=== PATIENT | female | born 1965 | race Caucasian/White ===

== ENCOUNTER → 2016-05-17 | Outpatient (CLI) | payer OTHER ==
[~2016-05-17] MED LIST: DEXA2TA PO
== END ==
LOC: M ONCR 15:14
PROVIDERS: ATTEND Radiology Radiation Oncology
DX: C32.9 Malignant neoplasm of larynx, unspecified (principal)

== ENCOUNTER → 2016-07-12 | Outpatient (CLI) | payer OTHER ==
--- NOTE | 2016-07-12 19:44 | REP ---
PET/CT: History: Staging laryngeal carcinoma. Comparisons: No comparison imaging. The patient underwent a endoscopic evaluation of biopsy right vocal cord on the 01/03/2016. 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 She is apparently treated with radiation therapy. TECHNIQUE: 65 minutes following the intravenous injection of a 7.5 mCi dose of F-18 FDG, three-dimensional PET scintigraphy is acquired from the skull base to the proximal thighs. Triplanar noncontrast CT scanning is acquired through the same anatomic range for attenuation correction, and image registration with scan parameters optimized to minimize radiation exposure to the patient. PET scintigraphy and CT datasets were fused and displayed on a workstation with multiplanar and projection display capability. PET/CT Findings: There is normal variant FDG distribution in the oral pharyngeal mucosal region and in the glottic and supraglottic region and in the retinoid cartilage region. No bina hypermetabolic uptake is seen in the head and neck region. No abnormal hypermetabolic uptake is seen within the chest. There are old granulomatous lymph node calcifications and one granuloma is seen in the right lower lobe of the lung. No abnormal hypermetabolic uptake is seen within the abdomen or pelvis. Impression: No suspicious hypermetabolic focus is seen. A normal variant head and neck uptake seen. Signed by Joaquin Mathew MD 07/13/2016 09:06 A
== END ==
LOC: M RAD 13:24
PROVIDERS: ATTEND Otolaryngology
DX: C32.9 Malignant neoplasm of larynx, unspecified (principal)

== ENCOUNTER 2016-10-18 09:56 | Emergency (ER) | payer OTHER ==
[~2016-10-18] VITALS: Ht 167.6 cm; Wt 62.2 kg
[2016-10-18] MEDS ORDERED: GABA-282 (10:10)
[2016-10-18] MEDS ORDERED: LISI10TA4 (10:10)
[2016-10-18] MEDS ORDERED: MONT10TA2 (10:10)
[2016-10-18] MEDS ORDERED: [UNRECOGNIZED DRUG - OTHER] (10:10)
[2016-10-18] MEDS ORDERED: OMEP40CA2 (10:10)
[2016-10-18] MEDS ORDERED: CETI10TA (10:10)
[2016-10-18] MEDS ORDERED: COMBAER6 (10:10)
[2016-10-18] MEDS ORDERED: SUCR1TAB56 (10:10)
[2016-10-18] MEDS ORDERED: ATOR1TAB21 (10:10)
[2016-10-18 12:13] VITALS: BP 127/68
[2016-10-19] MEDS ORDERED: OXYC1TAB23 PO (09:27)
[2016-10-19] MEDS ORDERED: LISI10TA4 PO (09:27)
[2016-10-19] MEDS ORDERED: SUCR1TA PO (09:27)
[2016-10-19] MEDS ORDERED: OMEP40CA2 PO (09:27)
[2016-10-19] MEDS ORDERED: GABA-282 PO (09:27)
[2016-10-19] MEDS ORDERED: ALL10TAB27 PO (09:27)
[2016-10-19] MEDS ORDERED: ATOR1TAB19 PO (09:27)
[2016-10-19] MEDS ORDERED: DEXA1CON PO (09:27)
[2016-10-19] MEDS ORDERED: ALEV220T26 PO (09:27)
[2016-10-19] MEDS ORDERED: SPIR1CAP INH (09:27)
[2016-10-19] MEDS ORDERED: VITA50003 PO (09:27)
[2016-10-19] MEDS ORDERED: ULTR50TA PO (09:27)
== END 2016-10-18 12:14 | disposition home or self-care (01) ==
LOC: M ED 11:00
DX: R07.0 Pain in throat (principal); F17.200 Nicotine dependence, unspecified, uncomplicated; Z79.899 Other long term (current) drug therapy; Z88.5 Allergy status to narcotic agent; Z88.0 Allergy status to penicillin; Z88.2 Allergy status to sulfonamides

== ENCOUNTER → 2016-10-19 | Outpatient (CLI) | payer OTHER ==
[~2016-10-19] MED LIST changes: +ALEV220T26 PO; +ALL10TAB27 PO; +ATOR1TAB19 PO; +ATOR1TAB21; +ATOR1TAB21 PO; +CETI10TA; +COMBAER6; +COMBAER6 INH; +DEXA1CON PO; +GABA-282; +GABA-282 PO; +LISI10TA4; +LISI10TA4 PO; +MONT10TA2; +OMEP40CA2; +OMEP40CA2 PO; +OXYC1TAB23 PO; +SPIR1CAP INH; +SUCR1TA PO; +SUCR1TAB56; +ULTR50TA PO; +VITA50003 PO; +[UNRECOGNIZED DRUG - OTHER]
--- NOTE | 2016-10-19 17:13 | ECGEPIP ---
Stationary ECG Study [facility] Test Date: 2016-10-19 Pat Name: JENNY SLAUGHTER Department: Room: - Gender: F In Service Coordinator: [facility] : 1965 Requested By: Lisha CYR-BC Order Number: [id number] Reading MD: Mahin Mullen Measurements Intervals [place] Rate: 97 P: 81 NC: 135 QRS: 57 QRSD: 82 T: 69 QT: 346 QTc: 441 Interpretive Statements Normal sinus rhythm Biatrial enlargement Nonspecific repolarization abnormalities Compared to prior tracing of 12/27/2015, heart rate is a bit faster Electronically Signed On 10-19-2016 17:12:57 EDT by Mahin Mullen
== END ==
LOC: M EKG 13:01
PROVIDERS: ATTEND Nurse Practitioner Adult Health
DX: Z82.49 Family history of ischemic heart disease and other diseases of the circulatory system (principal)

== ENCOUNTER 2016-10-23 09:59 | Day surgery (SDC) | payer OTHER ==
[~2016-10-23] VITALS: Ht 167.6 cm; Wt 65.8 kg
[~2016-10-23 09:59] MED LIST changes: -ATOR1TAB21 PO; -COMBAER6 INH; +LIDOCAINE 2% INJ 100 MG/5 ML SDV (FOR ANES.) As Ordered ONE; +MIDAZOLAM INJ 2 MG/2 ML VIAL (J2250) As Ordered ONE; +ONDANSETRON 4MG/2ML VIAL (J2405) As Ordered ONE; +PROPOFOL 200 MG/20 ML VIAL As Ordered ONE; +ROCURONIUM BROMIDE 50 MG/5 ML VIAL As Ordered ONE; +SUCCINYLCHOLINE 100 MG/5 ML SYRINGE (J0330) As Ordered ONE; +dexameTHASONE 4 MG/ML 1ML VIAL (J1100) As Ordered ONE; +fentaNYL 100 MCG/2 ML INJECTION (J3010) As Ordered ONE
[2016-10-23 11:00] LABS: MEAN CORPUSCULAR HEMOGLOBIN 33.9 pg (27.0-33.0); MEAN CORPUSCULAR HGB CONC 34.4 g/dl (32.0-36.5); MEAN CORPUSCULAR VOLUME 98.5 fl (80.0-96.0); RED CELL DISTRIBUTION WIDTH 12.6 % (11.5-14.5); WHITE BLOOD COUNT 6.4 K/mm3 (4.0-10.0)
[2016-10-23 11:15] LABS: ANION GAP 10 MEQ/L (8-16); BLOOD UREA NITROGEN 16 MG/DL (7-18); CALCIUM LEVEL 9.7 MG/DL (8.5-10.1); CARBON DIOXIDE LEVEL 25 MEQ/L (21-32); CHLORIDE LEVEL 103 MEQ/L (98-107); CREATININE FOR GFR 1.03 MG/DL (0.55-1.02); GLOMERULAR FILTRATION RATE > 60.0 (>51); GLUCOSE, FASTING 143 MG/DL (70-105); POTASSIUM SERUM 3.7 MEQ/L (3.5-5.1); SODIUM LEVEL 138 MEQ/L (136-145)
[2016-10-23] MEDS ORDERED: LR 1,000 ML IV ONE (11:30)
[2016-10-23] MEDS ORDERED: MORPHINE 2 MG/ML 1ML SYRINGE IV ONE (11:30)
[2016-10-23] MEDS ORDERED: MORPHINE 2 MG/ML 1ML SYRINGE IV PRN (12:00)
[2016-10-23] MEDS ORDERED: ESMOLOL INJ 100MG/10ML VIAL As Ordered ONE (13:45)
[2016-10-23] MEDS ORDERED: GLYCOPYRROLATE INJ 0.2 MG/ML 2 ML VIAL As Ordered ONE (13:51)
[2016-10-23] MEDS ORDERED: NEOSTIGMINE 1MG/ML 5 ML SYRINGE (J2710) As Ordered ONE (13:51)
[2016-10-23] MEDS ORDERED: HYDROmorphone HCL 2 MG/ML 1ML VIAL (J1170) As Ordered ONE (14:04)
[2016-10-23] MEDS ORDERED: ALBUTEROL 6.7GM INHALER **FOR ANES. CART/OMNICELL ONLY As Ordered ONE (14:05)
[2016-10-23] MEDS ORDERED: LEVALBUTEROL 1.25 MG/0.5 ML CONCENTRATE NEB As Ordered ONE (14:14)
[2016-10-23] MEDS: MIDAZOLAM INJ 2 MG/2 ML VIAL (J2250) IV ONE ×2 (14:15→15:20)
[2016-10-23] MEDS ORDERED: MIDAZOLAM INJ 2 MG/2 ML VIAL (J2250) As Ordered ONE (14:15)
--- NOTE | 2016-10-23 14:22 | RO ---
DATE OF PROCEDURE: 10/23/2016 PREPROCEDURE DIAGNOSIS: Cancer of the larynx. POSTPROCEDURE DIAGNOSIS: Cancer of the larynx. SURGEON: Charles Ott MD CABLE ASSEMBLER AND SWAGER: ANESTHESIA: PROCEDURE: Direct laryngoscopy, esophagoscopy, and biopsy. FINDINGS: There was irritation in the ventricle on the left side with some hypertrophied epithelium. Several biopsies were taken. The cords themselves looked fine. DESCRIPTION OF PROCEDURE: Under general anesthesia with the patient intubated, I inserted the laryngoscope. The above findings were seen. Several biopsies were taken. I examined the oral cavity, hypopharynx and the larynx. I examined the aryepiglottic fold, the post cricoid area, piriform fossa, and there were no abnormalities except for some edema. The subglottic area looked fine. Then I inserted the rigid esophagoscope. I advanced that down into the esophagus and down through the length of the esophagus. There were no abnormalities. When I brought it back out, I examined the above areas again. The patient tolerated the procedure well. The patient was extubated and transferred to the recovery room in excellent condition.
[2016-10-23] MEDS: MIDAZOLAM INJ 2 MG/2 ML VIAL (J2250) IV PRN ×2 (14:25→15:20)
[2016-10-23] MEDS: RACEPINEPHrine 2.25 % UD INHA INH ONE ×2 (14:45→15:15)
[2016-10-23] MEDS ORDERED: diphenhydrAMINE INJ 50MG/ML VIAL (J1200) As Ordered ONE (14:48)
[2016-10-23] MEDS ORDERED: RACEPINEPHrine 2.25 % UD INHA As Ordered ONE (14:49)
[2016-10-23] MEDS ORDERED: diphenhydrAMINE INJ 50MG/ML VIAL (J1200) IV PRN (15:00)
[2016-10-23] MEDS ORDERED: ONDANSETRON 4MG/2ML VIAL (J2405) IV PRN (15:00)
[2016-10-23] MEDS ORDERED: fentaNYL 100 MCG/2 ML INJECTION (J3010) IV PRN (15:00)
[2016-10-23] MEDS ORDERED: LR 1,000 ML IV SCH (15:00)
[2016-10-23] MEDS ORDERED: LEVALBUTEROL 1.25 MG/0.5 ML CONCENTRATE NEB INH ONE (15:15)
[2016-10-23] MEDS ORDERED: traMADol 50 MG TAB PO PRN (17:30)
[2016-10-23 17:45] VITALS: BP 130/64
[2016-10-23 18:15] VITALS: BP 115/60
--- NOTE | 2016-10-23 20:45 | CR.PDOC ---
[facility] Consultation Consultation DATE OF CONSULTATION: Oct 23, 2016 at 09:59 REFERRING PROVIDER: Stu Reese M.D. ATTENDING PHYSICIAN: Dr. Charles Ott REASON FOR CONSULTATION/CHIEF COMPLAINT: . Medical management of comorbidities HISTORY OF PRESENT ILLNESS: . 51-year-old female with past medical history of laryngeal cancer diagnosed in January 2016 status post radiation from February to March 2016, tobacco abuse, hypertension, dyslipidemia, and GERD presented to [facility] for direct laryngoscopy, esophagoscopy, and biopsy with ENT today. The hospitalist service was consulted after the patient was noted to have upper respiratory wheezing and stridors following the aforementioned procedure(s). A chest x-ray was done and revealed no acute findings. However, during scoping procedure the patient was noted to have edema in the larynx, aryepiglottic fold, the post cricoid area , and piriform fossa. ALLERGIES: Please see below. HOME MEDICATIONS: Please see below. PAST MEDICAL HISTORY: As noted in HPI FAMILY HISTORY: Nonpertinent SOCIAL HISTORY: The patient denies any alcohol use. States that she continues to smoke 2 packs per day of tobacco. Denies any illicit drug use REVIEW OF SYSTEMS: 10 point review of systems negative unless otherwise specified in HPI. PHYSICAL EXAMINATION: VITAL SIGNS: Please see below. GENERAL APPEARANCE: . Awake, alert, in mild respiratory distress HEENT: . Skin overlying the anterior aspect of the neck noted to be brown from previous radiation. Patient noted to have audible stridor on auscultation RESPIRATORY: . Wheezing noted in the upper lungs/respiratory tract CARDIOVASCULAR: . Tachycardic, normal S1, S2 ABDOMEN: . Soft, nontender, nondistended EXTREMITIES: . No erythema, no tenderness LABORATORY DATA: Please see below. ASSESSMENT/PLAN: Wheezing in Upper Respiratory Tract, Stridor s/p Direct laryngoscopy, esophagoscopy in a patient with a history of Laryngeal Ca, Radiation Therapy Chest x-ray with no acute findings Given the patient's upper respiratory wheezing, stridor, and the findings of edema in the larynx, aryepiglottic fold, the post cricoid area, and piriform fossa during laryngoscopy and esophagoscopy in a patient with a history of laryngeal cancer status post radiation--I do believe the patient's upper airway should be closely monitored in case of an emergent need for tracheostomy--I have relayed my concern to the ENT attending The patients respiratory status did seem to improve after administration of racemic epinephrine. Continued Tobacco Abuse Patient counseled extensively about the need for cessation Hypertension Continue lisinopril Dyslipidemia Continue statin GERD Continue PPI Vital Signs/I&O Vital Signs Date Time Temp Pulse Resp B/P (MAP) Pulse Ox O2 Delivery O2 Flow Rate FiO2 10/23/16 18:15 97.3 119 18 115/60 (78) 95 Room Air 10/23/16 16:15 3 10/23/16 16:00 98 Laboratory Data Labs 24H Laboratory Tests 2 10/23/16 10:41: Anion Gap 10, Glomerular Filtration Rate > 60.0, Blood Urea Nitrogen 16, Creatinine 1.03H, Sodium Level 138, Potassium Level 3.7, Chloride Level 103, Carbon Dioxide Level 25, Calcium Level 9.7 10/23/16 18:17: Total Creatine Kinase 100, Creatine Kinase MB 1.0, Creatine Kinase MB Relative Index 1.00, Troponin I < 0.02 CBC/BMP Laboratory Tests 10/23/16 10:41 Red Blood Count 3.84 L, Mean Corpuscular Volume 98.5 H, Mean Corpuscular Hemoglobin 33.9 H, Mean Corpuscular Hemoglobin Concent 34.4, Red Cell Distribution Width 12.6, Calcium Level 9.7 Allergies Coded Allergies: Codeine (Verified Allergy, Unknown, 10/19/16) Penicillins (Verified Allergy, Unknown, 10/19/16) Sulfa Antibiotics (Verified Allergy, Unknown, 10/19/16) Home Medications Scheduled Atorvastatin Calcium (Atorvastatin Calcium) 10 Mg Tab, 10 MG PO DAILY, (Reported ) Cetirizine HCl (All Day Allergy) 10 Mg Tab, 10 MG PO DAILY, (Reported) Dexamethasone (Dexamethasone Intensol) 1 Mg/Ml Con, 1 MG PO BID, (Reported) Ergocalciferol (Vitamin D) 50,000 Unit Cap, 50,000 UNIT PO 2XW, (Reported) Gabapentin (Gabapentin) 300 Mg Cap, 250 MG PO TID, (Reported) Lisinopril (Lisinopril) 10 Mg Tab, 10 MG PO DAILY, (Reported) Omeprazole (Omeprazole) 40 Mg Cap, 40 MG PO AC, (Reported) Sucralfate (Carafate) 1 Gm Tab, 1 GM PO AC, (Reported) Scheduled PRN Naproxen Sodium (Aleve) 220 Mg Tab, 220 MG PO BIDP PRN for PAIN, (Reported) Oxycodone/Acetaminophen (Oxycodone/Acetaminophen 5-325 mg) 1 Tab Tab, 1 TAB PO Q4HP PRN for PAIN, (Reported) Tiotropium [place] Monohydrate (Spiriva Handihaler) 18 Mcg Cap, 1 INHALATION INH BIDP PRN for SHORTNESS OF BREATH, (Reported) STU REESE MD Oct 23, 2016 20:45
--- NOTE | 2016-10-24 00:52 | ECGEPIP ---
Stationary ECG Study [facility] Test Date: 2016-10-23 Pat Name: JENNY SLAUGHTER Department: u Room: [place] [address] Gender: F [employer] Furn[employer]: WHIT : 1965 Requested By: STU REESE Order Number: [id number] Reading MD: Nikolas Heredia Measurements Intervals [place] Rate: 112 P: 72 MO: 132 QRS: -1 QRSD: 72 T: 40 QT: 340 QTc: 466 Interpretive Statements SINUS TACHYCARDIA ABNORMAL RHYTHM ECG COMPARED TO THE LAST 2 TRACINGS IN THE SYSTEM, NO SIGNIFICANT CHANGES BUT MILD SINUS TACHYCARDIA Pt denies ever having chest pain! Electronically Signed On 10-24-2016 0:52:08 EDT by Nikolas Heredia
[2016-10-24] MEDS ORDERED: ATOR1TAB21 PO (11:11)
[2016-10-24] MEDS ORDERED: COMBAER6 INH (11:11)
== END 2016-10-23 22:10 | disposition left against medical advice (07) ==
LOC: M SDC 09:59 → M PCU 17:38 → M SDC 22:10
PROVIDERS: ATTEND Otolaryngology
DX: J38.3 Other diseases of vocal cords (principal); C32.9 Malignant neoplasm of larynx, unspecified; Z92.3 Personal history of irradiation; Z88.0 Allergy status to penicillin; Z88.2 Allergy status to sulfonamides; I10 Essential (primary) hypertension; Z79.899 Other long term (current) drug therapy; J44.9 Chronic obstructive pulmonary disease, unspecified; F17.210 Nicotine dependence, cigarettes, uncomplicated

== ENCOUNTER → 2016-10-23 | Outpatient (CLI) | payer OTHER ==
--- NOTE | 2016-10-23 09:27 | REP ---
PA and lateral chest: Comparisons are the PA and lateral chest plain film studies of 12/27/2015 and 2013. There is a comparison chest CT of 05/27/2014. There is a stable right lower lobe calcified granuloma, and unchanged from all prior studies. There are no acute infiltrates or effusions. No new masses. Cardiac size is normal. The denzel, mediastinum, and bony thorax are unremarkable. Impression: Essentially negative chest. Right lower lobe calcified granuloma. Signed by Leighton Pride MD 10/23/2016 09:19 A
--- NOTE | 2016-10-23 09:29 | REP ---
Soft tissue neck three views: The prevertebral soft tissues are normal. There is no adenoid hypertrophy. The epiglottis appears mildly hypertrophied. There is mild C5-6 degenerative disc disease. Impression: Mildly hypertrophied epiglottis. Signed by Leighton Pride MD 10/23/2016 09:20 A
== END ==
LOC: M RAD 08:31
PROVIDERS: ATTEND Nurse Practitioner Adult Health
DX: R05 Cough (principal)

== ENCOUNTER 2016-10-24 07:30 | Observation (INO) | payer OTHER ==
[~2016-10-24] VITALS: Ht 167.6 cm; Wt 60.4 kg
[~2016-10-24 07:30] MED LIST changes: -LIDOCAINE 2% INJ 100 MG/5 ML SDV (FOR ANES.) As Ordered ONE; -MIDAZOLAM INJ 2 MG/2 ML VIAL (J2250) As Ordered ONE; -ONDANSETRON 4MG/2ML VIAL (J2405) As Ordered ONE; -PROPOFOL 200 MG/20 ML VIAL As Ordered ONE; -ROCURONIUM BROMIDE 50 MG/5 ML VIAL As Ordered ONE; -SUCCINYLCHOLINE 100 MG/5 ML SYRINGE (J0330) As Ordered ONE; -dexameTHASONE 4 MG/ML 1ML VIAL (J1100) As Ordered ONE; -fentaNYL 100 MCG/2 ML INJECTION (J3010) As Ordered ONE
[2016-10-24] MEDS ORDERED: RACEPINEPHrine 2.25 % UD INHA As Ordered ONE (07:57)
[2016-10-24] MEDS ORDERED: ALBUTEROL SULFATE 2.5 MG/0.5 ML INH NEB SOLN As Ordered ONE (07:57)
[2016-10-24] MEDS ORDERED: IPRATROPIUM 0.5MG/ALBUTEROL 2.5MG INH SOL UD 3ML (DUONEB)(J7620) As Ordered ONE (07:57)
[2016-10-24] MEDS ORDERED: ALBUTEROL SULFATE 2.5 MG/0.5 ML INH NEB SOLN INH ONE (08:00)
[2016-10-24] MEDS ORDERED: RACEPINEPHrine 2.25 % UD INHA NEB ONE (08:00)
[2016-10-24] MEDS ORDERED: dexameTHASONE 20 MG/5 ML VIAL (J1100) IV ONE (08:00)
[2016-10-24] MEDS ORDERED: ONDANSETRON 4MG/2ML VIAL (J2405) IV ONE (08:00)
[2016-10-24] MEDS ORDERED: MORPHINE 2 MG/ML 1ML SYRINGE IV ONE (08:00)
[2016-10-24] MEDS ORDERED: IPRATROPIUM 0.5MG/ALBUTEROL 2.5MG INH SOL UD 3ML (DUONEB)(J7620) NEB ONE (08:00)
[2016-10-24] MEDS ORDERED: NS 1,000 ML IV ONE (08:00)
[2016-10-24 08:17] LABS: INR 0.93
[2016-10-24 08:23] LABS: ABG BASE EXCESS 0.4 (-2.0-2.0); ABG HCO3 23.3 MEQ/L (22.0-26.0); ABG PARTIAL PRESSURE CO2 32.2 mmHg (35.0-45.0); ABG STANDARD HCO3 24.9 MEQ/L (22.0-26.0); ABG TOTAL CO2 24.3 MEQ/L (22.0-29.0); ABG pH (ARTERIAL) 7.477 UNITS (7.350-7.450)
--- NOTE | 2016-10-24 08:29 | REP ---
Portable chest, single AP view, the patient sitting, 10/24/2016, 08:19 a.m.: Comparison is 10/23/2016. There are no focal infiltrates or pleural effusions. The lung alvarado otherwise clear. There is a right lower lobe stable calcified granuloma. Cardiac size is normal. The denzel, mediastinum, bony thorax are unremarkable. Impression: No acute cardiopulmonary findings. Signed by Leighton Pride MD 10/24/2016 08:21 A
[2016-10-24] MEDS ORDERED: LevoFLOXacin IV 750 MG in APPROPRIATE DILUENT 1 EA IV ONE (08:30)
[2016-10-24 08:36] LABS: ALBUMIN 3.7 GM/DL (3.2-5.2); ALBUMIN/GLOBULIN RATIO 1.03 (1.00-1.93); ALKALINE PHOSPHATASE 67 U/L (45-117); ALT/SGPT 20 U/L (12-78); ANION GAP 9 MEQ/L (8-16); AST/SGOT 11 U/L (15-37); BILIRUBIN,DIRECT 0.1 MG/DL (0.0-0.2); BILIRUBIN,TOTAL 0.4 MG/DL (0.2-1.0); BLOOD UREA NITROGEN 18 MG/DL (7-18); CALCIUM LEVEL 9.5 MG/DL (8.5-10.1); CARBON DIOXIDE LEVEL 26 MEQ/L (21-32); CHLORIDE LEVEL 102 MEQ/L (98-107); CREATININE FOR GFR 1.08 MG/DL (0.55-1.02); GLOMERULAR FILTRATION RATE 56.9 (>51); GLUCOSE, FASTING 107 MG/DL (70-105); POTASSIUM SERUM 4.1 MEQ/L (3.5-5.1); SODIUM LEVEL 137 MEQ/L (136-145); TOTAL PROTEIN 7.3 GM/DL (6.4-8.2)
[2016-10-24 08:40] LABS: BASO % 0.1 % (0.0-1.0); EOS % 0.3 % (0.0-3.0); LARGE UNSTAINED CELL # 0.1 K/mm3 (0.0-0.4); LARGE UNSTAINED CELL % 1.1 % (0.0-4.0); LYMPH % 11.2 % (24.0-44.0); MEAN CORPUSCULAR HEMOGLOBIN 33.4 pg (27.0-33.0); MEAN CORPUSCULAR HGB CONC 33.5 g/dl (32.0-36.5); MEAN CORPUSCULAR VOLUME 99.5 fl (80.0-96.0); MONO # 0.6 K/mm3 (0.0-0.8); MONO % 6.2 % (0.0-5.0); NEUTROPHILS # 7.1 K/mm3 (1.8-7.7); PLATELET COUNT, AUTOMATED 288 k/mm3 (150-450); RED CELL DISTRIBUTION WIDTH 12.3 % (11.5-14.5); WHITE BLOOD COUNT 8.8 K/mm3 (4.0-10.0)
[2016-10-24] MEDS ORDERED: KETOROLAC 30 MG/ML VIAL (J1885) IV ONE (09:00)
[2016-10-24] MEDS ORDERED: SENOKOT S TAB PO SCH (09:00)
--- NOTE | 2016-10-24 09:30 | ECGEPIP ---
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
[2016-10-24] MEDS ORDERED: ISOVUE-370 76% 100ML VIAL (Q9967) As Ordered ONE (10:08)
[2016-10-24] MEDS ORDERED: ATOR1TAB21 PO (11:11)
[2016-10-24] MEDS ORDERED: COMBAER6 INH (11:11)
--- NOTE | 2016-10-24 11:15 | REP ---
REASON: Status post ENT procedure with scraping of the subglottic tissues on the left as per history from the emergency room physician. The exam was performed before and after intravenous contrast. Contrast utilized 100 mL of Isovue 370. As seen at the level of the thyroid cartilage on the left, there is evidence of soft tissue thickening with moderate airway compression. Air density is seen on the left adjacent to the hyoid bone. There is no definite abnormal enhancement. The suprahyoid neck spaces are normal. There is no evidence of a mass or adenopathy. IMPRESSION: Subglottic soft tissue thickening with some evidence to suggest very subtle enhancement of the areas measuring approximately 1 cm and possibly causing mild to moderate airway narrowing at that level. There is no evidence of an abscess formation. Clinical correlation and followup is suggested. Signed by Yan Henley DO 10/24/2016 11:53 A
[2016-10-24] MEDS ORDERED: NS 1,000 ML IV SCH (11:30)
[2016-10-24] MEDS ORDERED: ACETAMINOPHEN TAB 650MG DOSE (2X325MG) PO PRN (12:00)
[2016-10-24] MEDS ORDERED: PERCOCET 5MG/325MG TAB PO PRN (12:00)
[2016-10-24] MEDS ORDERED: IPRATROPIUM 0.5MG/ALBUTEROL 2.5MG INH SOL UD 3ML (DUONEB)(J7620) NEB PRN (12:00)
[2016-10-24] MEDS ORDERED: ONDANSETRON 4MG/2ML VIAL (J2405) IV PRN (12:00)
[2016-10-24] MEDS ORDERED: IPRATROPIUM 0.5MG/ALBUTEROL 2.5MG INH SOL UD 3ML (DUONEB)(J7620) NEB SCH (14:00)
[2016-10-24] MEDS ORDERED: methylPREDNISolone INJ 125 MG/2 ML VIAL (J2930) IV SCH (14:00)
[2016-10-24 15:39] VITALS: BP 139/88
[2016-10-24] MEDS ORDERED: GABAPENTIN 300 MG CAP PO SCH (16:00)
--- NOTE | 2016-10-24 17:17 | HPEPDOC ---
General Date of Admission Oct 24, 2016 at 11:58 Chief Complaint The patient is a 51-year-old female Presented to the ER with complaints of throat pain. History of Present Illness Patient is a 51 year old female with a PMHx of Laryngeal cancer (Dx 215 via Biopsy, s/p Radiation -03/2016), Tobacco abuse, HTN, DLP, COPD (Dx 2 years prior) and Gastric Ulcer / GERD who presented to the ER with throat pain. Patient has noted that since her initial diagnosis of cancer in 01/2016 she has been having throat pain that has not resolved despite radiation. She subsequently had a repeat laryngoscopy and esophagostomy done on 10/23/[address] Charles Ott (ENT) and biopsy were taken. Results are still pending. After the procedure patient noted that she still had pain and was evaluated by the hospitalist at that time as well. She was noted to be stridor and had received racemic epinephrine that improved the stridor. She was subsequently discharged home from ENTs service. She returned again today with throat pain. She denied any change in her baseline cough, denies any change in her sputum color or consistency. She denies any wheezing or chest pain. Denies any fever or chills. She reports that she does have some mild hemoptysis when she coughs. She does not that she vomits occasionally when she has excessive coughing episodes. She denies abdominal pain, constipation, diarrhea or urinary symptoms. Denies any leg swelling. Home Medications Scheduled Atorvastatin Calcium (Atorvastatin Calcium) 20 Mg Tab, 20 MG PO DAILY, (Reported ) Cetirizine HCl (All Day Allergy) 10 Mg Tab, 10 MG PO DAILY, (Reported) Gabapentin (Gabapentin) 300 Mg Cap, 300 MG PO TID, (Reported) Lisinopril (Lisinopril) 10 Mg Tab, 10 MG PO DAILY, (Reported) Omeprazole (Omeprazole) 40 Mg Cap, 40 MG PO DAILY, (Reported) Sucralfate (Carafate) 1 Gm Tab, 1 GM PO ACHS, (Reported) PATIENT STATES SHE PUT ALL 4 TABS IN WATER AND MIXES UNTIL THEY ARE DISOLVED. WHEN HER ULCER FLARES UP, SHE SIPS ON IT. Scheduled PRN Albuterol/Ipratropium (Combivent Respimat 20-100 Mcg/Act) 1 Aer Aer, 1 PUFF INH QID PRN for SHORTNESS OF BREATH, (Reported) Naproxen Sodium (Aleve) 220 Mg Tab, 220 MG PO BIDP PRN for PAIN, (Reported) Oxycodone/Acetaminophen (Oxycodone/Acetaminophen 5-325 mg) 1 Tab Tab, 1 TAB PO Q4HP PRN for PAIN, (Reported) Allergies Coded Allergies: Codeine (Verified Allergy, Unknown, 10/19/16) Penicillins (Verified Allergy, Unknown, 10/19/16) Sulfa Antibiotics (Verified Allergy, Unknown, 10/19/16) Past Medical History Medical History See HPI Surgical History See HPI Family History - Non-contributory Social History - Reports that she is a smoker of >30 years at 1 ppd, Reports social EtOH use, Reports drug use with marijuana - Denies recent travel or sick contacts - Lives with family Review of Symptoms Other systems Constitutional: Reports weight loss, Poor appetite, No recent trauma Eyes: No visual changes or eye pain Ears, Nose, Throat: Denies nose bleeds, or difficulty swallowing, Positive blood in sputum, Positive throat pain Cardiovascular: Denies chest pain, sweating, or orthopnea Respiratory: Denies cough, wheezing, or shortness of breath GI: Nic nausea, vomiting, abdominal pain, diarrhea or constipation : Denies pain with urination or frequency Musculoskeletal: Denies joint pain or swelling Neuro / Psych: Denies muscle weakness or sensory loss Skin: No skin rashes noted All other review of systems negative; otherwise stated in history of present illness Vital Signs - Vitals: BP 139/88, HR 82, RR 20, Sat 97%RA, Temp 98.0F - General: Lying in bed, No acute distress, Speaking in full sentences, AAOx3 - HEENT: NC, AT, PERRLA, EOMI, No stridor - CVS: RRR, +S1S2 - Lungs: Fair air entry bilaterally, Clear to auscultation, No wheezing / rales / rhonchi - Abdomen: Soft, Non-distended, Non-tender, + Bowel sounds x 4 - Extremities: + PPx4, No lower extremity edema, No calf tenderness - Neuro: No focal motor or sensory deficit - Skin: No visible rashes Laboratory Data Labs 24H Laboratory Tests 2 10/24/16 08:01: White Blood Count 8.8, Red Blood Count 3.86L, Hemoglobin 12.9, Hematocrit 38.5, Mean Corpuscular Volume 99.5H, Mean Corpuscular Hemoglobin 33.4H, Mean Corpuscular Hemoglobin Concent 33.5, Red Cell Distribution Width 12.3, Platelet Count 288, Neutrophils (%) (Auto) 81.0H, Lymphocytes (%) (Auto) 11.2L, Monocytes (%) (Auto) 6.2H, Eosinophils (%) (Auto) 0.3, Basophils (%) (Auto) 0.1 , Neutrophils # (Auto) 7.1, Lymphocytes # (Auto) 1.0L, Monocytes # (Auto) 0.6, Eosinophils # (Auto) 0.0, Basophils # (Auto) 0.0, Large Unclassified Cells % 1.1 , Large Unclassified Cells # 0.1, Prothrombin Time 12.6, Prothromb Time International Ratio 0.93, Anion Gap 9, Glomerular Filtration Rate 56.9, Lactic Acid Level 2.3*H, Calcium Level 9.5, Aspartate Amino Transf (AST/SGOT) 11L, Alanine Aminotransferase (ALT/SGPT) 20, Alkaline Phosphatase 67, Total Bilirubin 0.4, Direct Bilirubin 0.1, Total Creatine Kinase 179#, Creatine Kinase MB 2.0, Creatine Kinase MB Relative Index 1.11, Troponin I < 0.02, B- Type Natriuretic Peptide 244H, Total Protein 7.3, Albumin 3.7, Albumin/Globulin Ratio 1.03, Thyroid Stimulating Hormone (TSH) 0.278L, Free Thyroxine 1.50H 10/24/16 08:10: Blood Gas Bicarbonate Standard 24.9, Arterial Blood pH 7.477H, Arterial Blood Partial Pressure CO2 32.2L, Arterial Blood Partial Pressure O2 250.0H, Arterial Blood Total CO2 24.3, Arterial Blood HCO3 23.3, Arterial Blood Base Excess 0.4, Arterial Blood Oxygen Saturation 99.4H 10/24/16 12:26: Lactic Acid Followup at 4 Hours 1.0 CBC/BMP Laboratory Tests 10/24/16 08:01 Red Blood Count 3.86 L, Mean Corpuscular Volume 99.5 H, Mean Corpuscular Hemoglobin 33.4 H, Mean Corpuscular Hemoglobin Concent 33.5, Red Cell Distribution Width 12.3, Neutrophils (%) (Auto) 81.0 H, Lymphocytes (%) (Auto) 11.2 L, Monocytes (%) (Auto) 6.2 H, Eosinophils (%) (Auto) 0.3, Basophils (%) ( Auto) 0.1, Neutrophils # (Auto) 7.1, Lymphocytes # (Auto) 1.0 L, Monocytes # ( Auto) 0.6, Eosinophils # (Auto) 0.0, Basophils # (Auto) 0.0 Microbiology Microbiology 10/24/16 Blood Culture, Received Pending 10/24/16 Blood Culture, Received Pending Plan / VTE VTE Prophylaxis Ordered?: Yes Plan Plan Intractable throat pain likely 2/2 malignancy, possibly 2/2 recent procedure - no evidence of stridor - CT reveals subglottic soft tissue thickening with some mild-moderate airway narrowing, no evidence of abscess - will attempt pain control with Percocet - Case discussed with Dr. Ott will be on consult Laryngeal edema likely 2/2 recent procedure - no evidence of stridor - will start solumedrol and Levaquin - Dr. Ott (ENT) on consult COPD history - c/w albuterol PRN Laryngeal cancer - Dx 01/216 via Biopsy - s/p Radiation -03/2016) Tobacco abuse - will start nicotine patch HTN - c/w Lisinopril with holding parameters DLP - c/w atorvastatin Gastric Ulcer / GERD - c/w protonix DVT prophylaxis - Will start CHERIE Felix MD Oct 24, 2016 17:17
[2016-10-24] MEDS ORDERED: SUCRALFATE 1 GM TAB PO SCH (17:30)
--- NOTE | 2016-10-24 22:04 | DSES ---
DATE OF ADMISSION: 10/24/2016 DATE OF DISCHARGE: ATTENDING PHYSICIAN: Dr. Heidi Parra DICTATED BY: Dr. Heidi Parra PRIMARY CARE PHYSICIAN: Dr. Lisha Smoers REFERRING PHYSICIAN: None. CONSULTING PHYSICIAN: Dr. Ott CONDITION ON DISCHARGE: Guarded. FINAL DIAGNOSIS/HOSPITAL COURSE/HISTORY OF THE PRESENT ILLNESS: The patient was admitted on 10/24/2016. Full history and physical is in the chart. The patient decided to leave against medical advice as she did not want to stay for continued medical treatment. The patient was advised of the risk of leaving against medical advice including worsening of her medical condition, disability and and she was advised to remain within the hospital for continued management of her medical problems and treatment. The patient refused to stay despite these facts. The patient was advised to return to the emergency room if she changes her mind.
[2016-10-25] MEDS ORDERED: CETIRIZINE (ZyrTEC) 10 MG TAB PO SCH (09:00)
[2016-10-25] MEDS ORDERED: PANTOPRAZOLE 40MG TAB (PROTONIX) PO SCH (09:00)
[2016-10-25] MEDS ORDERED: ATORVASTATIN 20 MG TAB PO SCH (09:00)
[2016-10-25] MEDS ORDERED: LISINOPRIL 10 MG TAB PO SCH (09:00)
[2016-10-25] MEDS ORDERED: LevoFLOXacin IV 750 MG in APPROPRIATE DILUENT 1 EA IV SCH (12:00)
== END 2016-10-24 15:39 | disposition left against medical advice (07) ==
LOC: M ED 08:21 → M ED INP 11:58
PROVIDERS: ADMIT Internal Medicine; ATTEND Internal Medicine
DX: Z53.21 Procedure and treatment not carried out due to patient leaving prior to being seen by health care provider (principal); J39.2 Other diseases of pharynx; R07.0 Pain in throat; Z85.21 Personal history of malignant neoplasm of larynx; Z92.3 Personal history of irradiation; I10 Essential (primary) hypertension; E78.5 Hyperlipidemia, unspecified; J44.9 Chronic obstructive pulmonary disease, unspecified; K21.9 Gastro-esophageal reflux disease without esophagitis; F17.210 Nicotine dependence, cigarettes, uncomplicated; Z79.899 Other long term (current) drug therapy; Z88.0 Allergy status to penicillin; Z88.2 Allergy status to sulfonamides

== ENCOUNTER 2017-01-20 03:48 | Inpatient (IN) | payer OTHER ==
[~2017-01-20] VITALS: Ht 167.6 cm; Wt 64.2 kg
[~2017-01-20 03:48] MED LIST changes: +ATOR1TAB21 PO; +COMBAER6 INH; -ULTR50TA PO; +ULTR50TA8 PO; +VITA1CAP40 PO; -VITA50003 PO
[2017-01-20] MEDS ORDERED: IPRATROPIUM 0.5MG/ALBUTEROL 2.5MG INH SOL UD 3ML (DUONEB)(J7620) As Ordered ONE (03:54)
[2017-01-20] MEDS: IPRATROPIUM 0.5MG/ALBUTEROL 2.5MG INH SOL UD 3ML (DUONEB)(J7620) NEB PRN ×3 (04:09→04:42)
[2017-01-20 04:10] LABS: ABG BASE EXCESS -4.3 (-2.0-2.0); ABG HCO3 21.2 MEQ/L (22.0-26.0); ABG PARTIAL PRESSURE CO2 40.6 mmHg (35.0-45.0); ABG PARTIAL PRESSURE O2 291.6 mmHg (75.0-100.0); ABG STANDARD HCO3 20.9 MEQ/L (22.0-26.0); ABG TOTAL CO2 22.5 MEQ/L (22.0-29.0); ABG pH (ARTERIAL) 7.336 UNITS (7.350-7.450)
[2017-01-20 04:13] VITALS: O2SAT 94
[2017-01-20 04:15] LABS: BASO % 0.5 % (0.0-1.0); EOS # 0.1 K/mm3 (0.0-0.50); EOS % 2.3 % (0.0-3.0); LARGE UNSTAINED CELL # 0.1 K/mm3 (0.0-0.4); LARGE UNSTAINED CELL % 1.3 % (0.0-4.0); LYMPH # 1.3 K/mm3 (1.5-4.5); LYMPH % 21.2 % (24.0-44.0); MEAN CORPUSCULAR HEMOGLOBIN 32.6 pg (27.0-33.0); MEAN CORPUSCULAR HGB CONC 33.2 g/dl (32.0-36.5); MEAN CORPUSCULAR VOLUME 98.1 fl (80.0-96.0); MONO # 0.3 K/mm3 (0.0-0.8); MONO % 4.8 % (0.0-5.0); NEUTROPHILS % 69.9 % (36.0-66.0); PLATELET COUNT, AUTOMATED 234 k/mm3 (150-450); RED CELL DISTRIBUTION WIDTH 13.2 % (11.5-14.5); WHITE BLOOD COUNT 5.7 K/mm3 (4.0-10.0)
[2017-01-20] MEDS ORDERED: methylPREDNISolone INJ 125 MG/2 ML VIAL (J2930) IV ONE (04:30)
[2017-01-20 04:43] LABS: ANION GAP 11 MEQ/L (8-16); BLOOD UREA NITROGEN 6 MG/DL (7-18); CALCIUM LEVEL 8.4 MG/DL (8.5-10.1); CARBON DIOXIDE LEVEL 26 MEQ/L (21-32); CHLORIDE LEVEL 98 MEQ/L (98-107); CREATININE FOR GFR 0.81 MG/DL (0.55-1.02); GLOMERULAR FILTRATION RATE > 60.0 (>51); GLUCOSE, FASTING 112 MG/DL (70-105); POTASSIUM SERUM 3.5 MEQ/L (3.5-5.1); SODIUM LEVEL 135 MEQ/L (136-145)
[2017-01-20] MEDS ORDERED: LORazepam 2 MG/ML VIAL (J2060) IV STA (05:16)
[2017-01-20] MEDS ORDERED: DEXA1TA PO (05:49)
[2017-01-20] MEDS ORDERED: MORPHINE 2 MG/ML 1ML SYRINGE IV PRN (06:15)
[2017-01-20] MEDS ORDERED: ONDANSETRON 4MG/2ML VIAL (J2405) IV PRN (06:15)
[2017-01-20] MEDS ORDERED: ACETAMINOPHEN TAB 650MG DOSE (2X325MG) PO PRN (06:15)
[2017-01-20] MEDS ORDERED: ISOVUE-370 76% 100ML VIAL (Q9967) As Ordered ONE (06:26)
[2017-01-20] MEDS ORDERED: ALBUTEROL SULFATE 2.5 MG/0.5 ML INH NEB SOLN NEB PRN (06:30)
--- NOTE | 2017-01-20 07:20 | REPUSA ---
CLINICAL HISTORY: Shortness of breath. TECHNIQUE: Multiple axial CT images were obtained through the neck with IV contrast material. MPR cor onal and sagittal sequences were obtained. COMMENTS: Comparison is made to the prior exam of 10/24/2016. Unchanged 1.6x2.2 cm left glottic/supraglottic soft tissue lesion. Interval appearance of diffuse significant soft tissue thickening of the epiglottic folds and mild in crease in supraglottic airway narrowing. There is no paravertebral soft tissue mass. The salivary glands are normal. There is no deep cervical or jugular lymphadenopathy. The paravertebral soft tissue space is normal. Limited images through the posterior fossa demonstrate no evidence for tonsilar herniation. Evaluation of the visualized lung apices reveals no evidence for abnormality. IMPRESSION: Unchanged left glottic/supraglottic soft tissue lesion. Interval appearance of diffuse thickening of the aryepiglottic folds. This can be secondary to infect ious/inflammatory pathology versus neoplastic infiltration. Subsequent increase in the degree of supraglottic airway narrowing. Thank you for your kind referral of this patient.
[2017-01-20] MEDS: SUCRALFATE 1 GM TAB PO SCH ×4 (07:30→21:23)
--- NOTE | 2017-01-20 07:40 | REPUSA ---
CLINICAL HISTORY: Dyspnea, exclude PE. TECHNIQUE: Multiple incremental axial, coronal and oblique images are obtained from the thoracic inle t to the upper abdomen. Intravenous contrast material was administered as per pulmonary embolism prot ocol. COMMENTS: Moderate centrilobular emphysema. Chronic bronchitis. 1.1 peripheral subpleural chronic calcified benign nodule of the right lower lobe. There is excellent opacification of pulmonary arterial system without evidence for pulmonary embolism . Aorta is of normal caliber without evidence for dissection or aneurysm. There is no evidence of pleural or parenchymal mass. There are no pleural effusions. There is no evid ence of hilar or mediastinal lymphadenopathy. The heart and great vessels are within normal limits. Images of the upper abdomen demonstrate no evidence of adrenal mass. The bony structures are free of lytic or blastic lesions. Multilevel degenerative changes are seen in volving the visualized thoracolumbar spine. Scattered calcifications are seen involving the aorta and major branches compatible with atherosclero sis. IMPRESSION: No evidence for pulmonary embolism. Emphysema. Chronic bronchitis. Small sliding hiatal hernia. Thank you for your kind referral of this patient.
--- NOTE | 2017-01-20 07:48 | REP ---
Clinical: Dyspnea and cough . Comparison: 10/24/2016 . Findings: The mediastinum and cardiac silhouette are stable and within normal limits for portable technique. The lung alvarado are clear without acute consolidation, effusion, or pneumothorax. Skeletal structures are intact. Impression: No acute cardiopulmonary process appreciated. Signed by Tj Yip MD 01/20/2017 07:40 A
--- NOTE | 2017-01-20 07:50 | REPUSA ---
CLINICAL HISTORY: Pain. TECHNIQUE: Multiple axial CT images were obtained through the thoracic spine without IV contrast mate rial. MPR coronal and sagittal sequences were obtained. COMMENTS: There are diffuse spondylotic changes. Findings are demonstrated by disc space narrowing, osteophyte formation and degenerative endplate changes. Facet joint arthropathy. No fracture or dislocation is s een. No aggressive bone lesion is noted. IMPRESSION: Spondylosis. Thank you for your kind referral of this patient.
[2017-01-20 08:00] VITALS: BP 123/94
[2017-01-20] MEDS ORDERED: AZITHROMYCIN INJ 500 MG, VIAL MATE ADAPTER 1 EACH in D5W 250 ML IV SCH (08:00)
--- NOTE | 2017-01-20 08:52 | HPE ---
DATE OF ADMISSION: 01/20/2017 PRIMARY CARE PROVIDER: Lisha Somers HISTORY OF PRESENT ILLNESS: The patient is a 51-year-old female with a past medical history significant for laryngeal cancer status post radiation, tobacco abuse, chronic obstructive pulmonary disease (COPD), dyslipidemia, hypertension, and gastric ulcer, presented to [facility] on 01/20/2017 for acute respiratory failure. Per patient, the patient started to have acute worsening of shortness of breath for the past 2 days, and the patient also noted to start having an increased wheeze; and since yesterday, her symptoms showed dramatic worsening; and, therefore, she had to come to [facility] for further treatments. The patient denied any frequency of any exacerbation history. The patient does have a history of laryngeal cancer diagnosis in January 2016, and biopsy was performed, and the patient had radiation in February and March of 2016. In October 2016, the patient came to [facility] for throat pain. A CT was performed. It showed there is a soft tissue thickening with mild to moderate airway narrowing. Within a few hours after hospitalization, the patient decided to sign out against medical advice (AMA). Per patient, the patient after she left AMA, the patient continued to have the issue with her throat. On 10/23/2016, the patient had a repeated laryngeal scope and esophagostomy done by Dr. Ott. At the time, biopsy was taken. Later, the biopsy results showed ulcerated squamous mucosa with acute inflammation and the reactive squamous atypia. No malignancy identified. When the patient arrived to the emergency room, the patient had severe respiratory distress. A high dose of steroid was given to the patient. The patient received multiple doses of nebulizer treatments. She feels her symptom is improving after three nebulizer treatments. However, at the time of the encounter, the patient still requires a VentiMask to maintain satisfactory oxygen (O2) saturation ALLERGIES: CODEINE, PENICILLIN, SULFA. PAST MEDICAL HISTORY: 1. Laryngeal cancer diagnosed in January 2016, status post radiation in February and March 2016. The biopsy from repeated laryngeal scope was performed in October 2016 and was negative for cancer. 2. Tobacco abuse. 3. Hypertension. 4. Dyslipidemia. 5. COPD. 6. Gastric ulcers. PAST SURGICAL HISTORY: 1. Left foot surgery. 2. Throat biopsy in October 2016. SOCIAL HISTORY: Chronic smoker. Consumes alcohol. History of recreational drug use. REVIEW OF SYSTEMS: General: Denies any fever or chills. HEENT: No vision changes. No auditory changes. CARDIOVASCULAR: Denied any chest pain. The patient does experience palpitations. RESPIRATORY: Acute worsening shortness of breath since 2 days ago and continued to get worse. The patient has the diagnosis of COPD. Complained about increased wheeze. No worsening of cough or sputum productions. GASTROINTESTINAL (GI): The patient has nausea and vomiting, more significant in the last several hours. No blood in the vomit. MUSCULOSKELETAL: Complained about back pain, mainly between the scapula has been bothering her for the past few months. OBJECTIVE: VITAL SIGNS: The pulse is 118, respirations 24, blood pressure 142/93, pulse oximetry is 98% on VentiMask. PHYSICAL EXAMINATION: GENERAL: Moderate to severe distress secondary to severe difficulty breathing. Alert and oriented times three. HEENT: Normocephalic, atraumatic. CARDIOVASCULAR: Tachycardic. Positive S1, S2. LUNGS: Very diminished breath sounds. I cannot appreciate any lung lobe wheezes. There is some chest tightness wheeze suspected from the upper airway. GASTROINTESTINAL (GI): Abdomen soft, nontender, nondistended. Bowel sounds present. EXTREMITIES: No edema. No cyanosis. LABORATORY DATA: WBC 57, hemoglobin 11.9, hemoglobin 35.9, platelet count is 234. Sodium is 135, potassium 3.5, chloride 98, carbon dioxide 26, BUN 6, creatinine 0.81, GFR greater than 60, fasting glucose 112, lactic acid 2.4, calcium is 8.4, total CK 128, troponin I less than 0.02, BNP is 166. Arterial blood gas (ABG) show a pH of 7.336, PCO2 is 40.6, SGOT is 21.2. Alcohol level is 0.067. MICROBIOLOGY: Respiratory panel is pending. Blood culture is pending times two. Laryngeal biopsy from 10/24/2016 shows no malignancy identified. Ulcerated squamous mucosa with acute inflammation, reactive squamous atypia, and pseudoepitheliomatous hyperplasia. IMAGING STUDIES: Chest x-ray result pending. ASSESSMENT AND PLAN: 1. Acute respiratory failure. The patient will be admitted to the progressive care unit (PCU) on inpatient status. The patient received multiple doses of nebulizer treatments and started with a high dose of steroids. The patient's symptom shows some slight improvement. Differential for the patient's shortness of breath includes COPD exacerbation versus narrowing of the upper airway. Will follow with a CT of the neck with contrast. Will still follow with a CT angiogram of the chest. Start the patient on the intravenous (IV) Solu-Medrol and azithromycin. Follow with a respiratory panel. Currently, the patient started having significant nausea and vomiting. The patient was started on IV fluids and placed nothing by mouth. 2. Chronic obstructive pulmonary disease exacerbation. Treatment listed above. 3. History of laryngeal cancer, status post radiation in February and March 2016. A throat biopsy was performed in October 2016 and showed no malignancy. Will follow with a CT of the neck. At this time, the CT, the patient was shown to have subsequent increase in the degree of supraglottic airway narrowing. 4. Tobacco abuse. Nicotine patch. 5. Dyslipidemia. On statin. 6. Gastric ulcer. On IV Protonix. 7. Hypertension. Currently, blood pressure in the satisfactory range. 8. Back pain. Due to history of throat cancer. Will follow with CT of the thoracic spine. 9. Deep venous thrombosis (DVT) prophylaxis. On heparin. 10. History of signing out against medical advice on 10/24/2016. MTDD
[2017-01-20] MEDS ORDERED: NICOTINE 21MG/24HR 1 EA TRANSDERMAL TD SCH (09:00)
[2017-01-20] MEDS ORDERED: PANTOPRAZOLE 40MG INJ (PROTONIX) (C9113) IV SCH (09:00)
[2017-01-20] MEDS: HEPARIN SOD (PORCINE) 5000 UNITS/ML VIAL SC SCH ×3 (10:12→21:23)
[2017-01-20] MEDS: NS 1,000 ML IV SCH ×2 (10:12→22:50)
[2017-01-20] MEDS: GABAPENTIN 300 MG CAP PO SCH ×2 (10:12→21:23)
--- NOTE | 2017-01-20 14:41 | IPNPDOC ---
Text Note Date of Service The patient was seen on 01/20/17. NOTE Subjective: Patient is a 51 year old female with a PMHx of Laryngeal CA (Dx 01/2016 , s/p Radiation -03/2016), HTN, DLP, COPD, Current smoker and GERD who presented to the ER with complaints of worsening SOB associated with wheezing. Patient notes that recently she was evaluate as an outpatient at Dr. Ott's (ENT ) office for her Laryngeal CA. She noted that they had performed visualization of the larynx and that no intervention was required. She subsequently developed these problems after. Patient was admitted for COPD exacerbation by the hospitalist service. This morning the results of her CTA chest and CT neck / spine with contrast returned and revealed that there was evidence of supraglottic airway narrowing. ENT was called on consult immediately. They have evaluate the patient in the ER and have noted that although not urgent a tracheostomy should be performed, at least temporarily to provide some assistance / comfort with breathing. She refused to have any procedures completed. Patient also reflected that she did not want to be intubated, nor would she like to receive chest compressions in the event of a cardiac arrest. Her MOLST form has been update to reflect this change. Patient was seen and examined at the bedside. She notes that she has some SOB, wheezing and neck pain. Denies any stridor and is speaking in full sentences. Objective: Vitals (See below) General: Lying in bed, no acute distress, comfortable, AAOx3 HEENT: NC, AT CVS: RRR, +S1S2 Lungs: Fair air entry b/l, wheezing at b/l lung alvarado Abdomen: Soft, ND, NT, +BSx4 Extremities: +PPx4, - Edema, - Calf tenderness Assessment and plan: Dyspnea - likely 2/2 acute COPD exacerbation, compounded with possible compromise of upper airway - Presented with worsening breathing after an upper resp tract evaluation with Dr. Ott (ENT) - Currently she does not appear to have any stridor or respiratory compromise, speaking in full sentences - Physical with bilateral wheezing, no stridor, no use of accessory muscles - Mild lactic acidosis, resolved - ABG 01/20: metabolic acidosis - CTA Chest 01/20: no evidence of PE, emphysema, chronic bronchitis, small sliding hiatal hernia - CT neck 01/20: interval appearance of diffuse thickening of aryepiglottic folds , increased degree of supraglottic airway narrowing - Evaluated by ENT in the ER; advised for non-urgent tracheostomy; patient refused any procedures - c/w Solumedrol, Azithromycin and inhaled therapy Laryngeal CA - Dx 01/2016 - s/p Radiation -03/2016 - Follows with Dr. Ott as an outpatient - Recently had evaluation as an outpatient Tobacco dependence - c/w nicotine patch DLP - c/w Atorvastatin Hx of Gastric Ulcer / GERD - c/w Protonix IV and Sucralfate; switch form protonix PO HTN - BP remains well controlled - c/w Lisinopril DVT - c/w Heparin VS,Fishbone, I+O VS, Fishbone, I+O Laboratory Tests 01/20/17 03:59 Red Blood Count 3.66 L, Mean Corpuscular Volume 98.1 H, Mean Corpuscular Hemoglobin 32.6, Mean Corpuscular Hemoglobin Concent 33.2, Red Cell Distribution Width 13.2, Neutrophils (%) (Auto) 69.9 H, Lymphocytes (%) (Auto) 21.2 L, Monocytes (%) (Auto) 4.8, Eosinophils (%) (Auto) 2.3, Basophils (%) ( Auto) 0.5, Neutrophils # (Auto) 4.0, Lymphocytes # (Auto) 1.3 L, Monocytes # ( Auto) 0.3, Eosinophils # (Auto) 0.1, Basophils # (Auto) 0.0, Calcium Level 8.4 L , Total Creatine Kinase 128 Vital Signs Date Time Temp Pulse Resp B/P (MAP) Pulse Ox O2 Delivery O2 Flow Rate FiO2 01/20/17 13:16 66 99 01/20/17 13:01 125/82 (96) 01/20/17 08:00 97.9 20 Venturi Mask 01/20/17 04:13 15.0 50 CHERIE CHAPA MD Jan 20, 2017 14:07
[2017-01-20 15:05] VITALS: BP 136/82
--- NOTE | 2017-01-20 17:26 | ECGEPIP ---
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
[2017-01-20] MEDS: methylPREDNISolone INJ 125 MG/2 ML VIAL (J2930) IV SCH (17:33)
--- NOTE | 2017-01-20 19:07 | CR ---
DATE OF CONSULTATION: 01/20/2017 Patient is in the emergency room, but will be transferred to the intensive care unit (ICU). ADMITTING DIAGNOSIS: Airway obstruction status post radiation therapy for laryngeal carcinoma. REQUESTING PHYSICIAN: Dr. Heidi Parra. This is a 51-year-old who is known to the [facility] ear, nose and throat (ENT) practice, with a diagnosis of laryngeal cancer and has undergone radiation therapy last fall as the primary mode of treatment. Since finishing treatment, she has had persistent laryngeal pain and her voice clot has never improved. She has continued to have a breathy, weak voice and has had chronic laryngeal pain with dysphagia since. She has undergone workup by Dr. Ott several times looking for possible recurrence, with direct laryngoscopy and biopsy. She has had a positron emission tomography (PET) scan, which showed her to be cancer free, results of which are not available at the time of this dictation. She presented the morning of this admission with increasing shortness of breath and difficulty breathing. She has had a persistent cough, bringing up viscous mucous. There has been no blood presented. On examination, she is in mild distress. She is extremely depressed. She has no obvious stridor, but her voice quality is quite breathy, indicative of no good glottic closure. Flexible laryngoscopy was performed at the bedside and demonstrates what appears to be a frozen larynx, with bilateral vocal cord paralysis, with a 3 mm chink, at the most. There is edema of the arytenoids. There is no obvious mass effect. There is no destruction of the visualization of the glottis. Palpation of the neck reveals induration, a woody characteristic of postradiation skin. No masses are felt. CT scan was obtained, which demonstrates some increased edema of the arytenoids. 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 There is no evidence at this point that she has recurrent disease, although this could present the same way. Her airway is compromised. I explained to her that a tracheotomy could be done to improve her quality of life and to reduce the stress of her breathing. I explained to her that further workup could be done to decide whether laryngectomy would be a better option for her, but she is refusing all intervention at this time. Had a nurse, Cris Galeano, with me in the room when I explained to her how a tracheotomy would be a way to improve her breathing, though would not improve her voice quality; certainly it would take a burden off her breathing problem. She, again, is refusing to do any therapy at this time. In event of urgent airway obstruction, she probably could be intubated, as the glottis is easy to visualize. It would be a frozen larynx, it would be a stiff larynx, to pass an endotracheal tube through, but it could be done with a small caliber tube, like a 6 tube. In the event on an urgent crisis, that is probably the first intervention, then decisions could be made. I asked if she had family around I could discuss this to; she does not want any family involved. I told her I would be available to help her through the weekend and I will discuss this further with Dr. Ott.
[2017-01-20] MEDS ORDERED: ATORVASTATIN 20 MG TAB PO SCH (21:00)
[2017-01-20] MEDS ORDERED: CETIRIZINE (ZyrTEC) 10 MG TAB PO SCH (21:00)
[2017-01-20] MEDS ORDERED: LISINOPRIL 10 MG TAB PO SCH (21:00)
[2017-01-20 21:23] VITALS: BP 123/90
[2017-01-20 22:00] VITALS: BP 123/90
[2017-01-21] MEDS: HEPARIN SOD (PORCINE) 5000 UNITS/ML VIAL SC SCH (05:50)
[2017-01-21] MEDS: SUCRALFATE 1 GM TAB PO SCH (05:50)
[2017-01-21] MEDS: methylPREDNISolone INJ 125 MG/2 ML VIAL (J2930) IV SCH (05:50)
[2017-01-21 06:00] VITALS: BP 117/62
[2017-01-21 06:56] LABS: MEAN CORPUSCULAR HEMOGLOBIN 33.5 pg (27.0-33.0); MEAN CORPUSCULAR HGB CONC 34.9 g/dl (32.0-36.5); RED CELL DISTRIBUTION WIDTH 12.8 % (11.5-14.5); WHITE BLOOD COUNT 7.2 K/mm3 (4.0-10.0)
[2017-01-21 07:07] LABS: ANION GAP 8 MEQ/L (8-16); BLOOD UREA NITROGEN 10 MG/DL (7-18); CALCIUM LEVEL 9.2 MG/DL (8.5-10.1); CARBON DIOXIDE LEVEL 26 MEQ/L (21-32); CHLORIDE LEVEL 101 MEQ/L (98-107); CREATININE FOR GFR 0.77 MG/DL (0.55-1.02); GLOMERULAR FILTRATION RATE > 60.0 (>51); GLUCOSE, FASTING 101 MG/DL (70-105); MAGNESIUM LEVEL 2.1 MG/DL (1.8-2.4); POTASSIUM SERUM 4.3 MEQ/L (3.5-5.1); SODIUM LEVEL 135 MEQ/L (136-145)
[2017-01-21] MEDS ORDERED: AZIT500T2 PO (07:59)
[2017-01-21] MEDS ORDERED: PRED10TA2 PO (07:59)
--- NOTE | 2017-01-21 16:10 | DSES ---
DATE OF ADMISSION: 01/20/2017 DATE OF DISCHARGE: 01/21/2017 ATTENDING PHYSICIAN: Heidi Parra MD PRIMARY CARE PROVIDER: Lisha Somers NP REFERRING PHYSICIAN: None. CONSULTING PHYSICIAN: Dr. Cid. CONDITION ON DISCHARGE: Guarded. FINAL DIAGNOSIS: Dyspnea, likely secondary to acute chronic obstructive pulmonary disease (COPD) exacerbation. PROCEDURES: A flexible laryngoscopy was performed by Dr. Cid on 01/20/2017. HISTORY OF PRESENT ILLNESS: The patient is a 51-year-old female with a past medical history of laryngeal cancer diagnosed in January 2016, status post radiation, hypertension, dyslipidemia, chronic obstructive pulmonary disease (COPD), current smoker, and gastroesophageal reflux disease (GERD) who presented to the emergency room (ER) with complaints of worsening shortness of breath associated with wheezing. The patient notes that she recently was evaluated as an outpatient by Dr. Ott of ears, nose and throat (ENT) for her laryngeal cancer. She noted that they had performed visualization of the larynx and no intervention was required. She subsequently developed these problems soon after. The patient was admitted for a chronic obstructive pulmonary disease (COPD) exacerbation by the hospitalist service. HOSPITAL COURSE: 1. Dyspnea, likely secondary to acute chronic obstructive pulmonary disease (COPD) exacerbation confounded with possible of upper airway, presented with worsening breathing after an upper respiratory tract evaluation with Dr. Ott of ears, nose and throat (ENT). Currently, she does not appear to have any stridor or respiratory compromise, speaking in full sentences. Physical with bilateral wheezing. No stridor or use of accessory muscles. Mild lactic acidosis has resolved. Arterial blood gas (ABG) on 01/20/[address] chest on 01/20/2017 revealed no evidence of pulmonary embolism. It did reveal emphysema, chronic bronchitis, and small sliding hiatal hernia. CT neck on 01/20/2017 with contrast revealed interval appearance of diffuse thickening of the aryepiglottic folds, increased degree of supraglottic airway narrowing. Evaluation by ENT in the emergency room has been completed and they have advised that she should have a non-urgent tracheostomy. However, the patient had refused the procedure. ENT had also performed direct visualization of the larynx with a laryngoscopy and had given these recommendations. The patient was put on Solu-Medrol, azithromycin, and nothing by mouth therapy. The patient had decided to leave against medical advice despite being advised that she will benefit from receiving continued Solu-Medrol intravenous for her bilateral lung wheezing/COPD exacerbation. The patient was adamant that she would leave despite the consequences of leaving, including worsening of her medical condition, disability and . 2. Laryngeal cancer, diagnosed in January 2016, status post radiation in February to March of 2016. Follows with Dr. Ott as an outpatient. Recently had evaluation as an outpatient. 3. Tobacco dependence. Continue with nicotine patch. 4. Dyslipidemia. Continue with atorvastatin. 5. History of gastric ulcer/gastroesophageal reflux disease (GERD). Continue with Protonix IV and sucralfate. 6. Hypertension. Blood pressure remains well-controlled. Continue with lisinopril. 7. Deep vein thrombosis (DVT) prophylaxis. Continue with heparin. DISCHARGE INSTRUCTIONS: The patient has been advised to remain in the hospital for continued medical treatment. She has been advised that leaving against medical advice would result in worsening of her medical condition, disability and possibly . The patient was aware of the consequences and despite this wanted to leave so that she can maintain her appointment with her hospice physician. The patient left against medical advice on 01/21/2017. TIME SPENT ON DISCHARGE: Greater than 35 minutes.
[2017-01-21] MEDS ORDERED: methylPREDNISolone INJ 40 MG/1 ML VIAL (J2920) IV SCH (18:00)
== END 2017-01-21 08:45 | disposition left against medical advice (07) | DRG 140 ==
LOC: M ED 03:48 → EDBD 03:48 → M ED INP 06:10 → M MS5PR 15:00
PROVIDERS: ADMIT Internal Medicine; ATTEND Internal Medicine
PROC: 0CJS8ZZ Inspection of Larynx, Via Natural or Artificial Opening Endoscopic (ICD-10-PCS; principal; 2017-01-20)
DX: J44.1 Chronic obstructive pulmonary disease with (acute) exacerbation (principal); I10 Essential (primary) hypertension; E78.5 Hyperlipidemia, unspecified; F17.200 Nicotine dependence, unspecified, uncomplicated; K21.9 Gastro-esophageal reflux disease without esophagitis; J96.00 Acute respiratory failure, unspecified whether with hypoxia or hypercapnia; Z85.819 Personal history of malignant neoplasm of unspecified site of lip, oral cavity, and pharynx

== ENCOUNTER 2017-01-22 23:46 | Emergency (ER) | payer OTHER ==
[~2017-01-22] VITALS: Ht 167.6 cm; Wt 58.6 kg
[~2017-01-22 23:46] MED LIST changes: +AZIT500T2 PO; +DEXA1TA PO; +PRED10TA2 PO
[2017-01-23] MEDS ORDERED: dexameTHASONE 20 MG/5 ML VIAL (J1100) IV ONE (02:00)
[2017-01-23 02:10] LABS: BASO % 0.2 % (0.0-1.0); EOS % 0.6 % (0.0-3.0); LARGE UNSTAINED CELL # 0.1 K/mm3 (0.0-0.4); LARGE UNSTAINED CELL % 0.9 % (0.0-4.0); LYMPH # 0.8 K/mm3 (1.5-4.5); MEAN CORPUSCULAR HEMOGLOBIN 33.6 pg (27.0-33.0); MEAN CORPUSCULAR HGB CONC 34.5 g/dl (32.0-36.5); MEAN CORPUSCULAR VOLUME 97.4 fl (80.0-96.0); MONO # 0.4 K/mm3 (0.0-0.8); MONO % 5.5 % (0.0-5.0); NEUTROPHILS # 5.2 K/mm3 (1.8-7.7); NEUTROPHILS % 80.8 % (36.0-66.0); PLATELET COUNT, AUTOMATED 286 k/mm3 (150-450); WHITE BLOOD COUNT 6.4 K/mm3 (4.0-10.0)
[2017-01-23] MEDS: IPRATROPIUM 0.5MG/ALBUTEROL 2.5MG INH SOL UD 3ML (DUONEB)(J7620) NEB SCH ×3 (02:11→02:56)
[2017-01-23 02:17] LABS: ANION GAP 5 MEQ/L (8-16); BLOOD UREA NITROGEN 11 MG/DL (7-18); CALCIUM LEVEL 8.8 MG/DL (8.5-10.1); CARBON DIOXIDE LEVEL 29 MEQ/L (21-32); CHLORIDE LEVEL 102 MEQ/L (98-107); GLOMERULAR FILTRATION RATE > 60.0 (>51); GLUCOSE, FASTING 114 MG/DL (70-105); POTASSIUM SERUM 3.8 MEQ/L (3.5-5.1); SODIUM LEVEL 136 MEQ/L (136-145)
[2017-01-23] MEDS ORDERED: PRED20TA PO (04:09)
[2017-01-23 04:43] VITALS: BP 148/92
--- NOTE | 2017-01-23 08:14 | REP ---
PA and lateral chest: Comparisons are the portable chest dated 01/20/2017, PA and lateral chest dated 02/16/[address] of 05/27/2014. There is a stable calcified granuloma in the right lower lobe. Lung alvarado otherwise clear. Cardiac size is normal. The denzel, mediastinum, and bony thorax are unremarkable. Impression: There are no acute cardiopulmonary findings. There is a stable calcified right lower lobe granuloma. Signed by Leighton Pride MD 01/23/2017 08:06 A
== END 2017-01-23 04:45 | disposition home or self-care (01) ==
LOC: M ED 23:46
DX: J44.1 Chronic obstructive pulmonary disease with (acute) exacerbation (principal); C32.9 Malignant neoplasm of larynx, unspecified; I10 Essential (primary) hypertension; K21.9 Gastro-esophageal reflux disease without esophagitis; E78.5 Hyperlipidemia, unspecified; F17.200 Nicotine dependence, unspecified, uncomplicated; Z79.51 Long term (current) use of inhaled steroids; Z79.899 Other long term (current) drug therapy; Z88.0 Allergy status to penicillin; Z88.2 Allergy status to sulfonamides; Z88.5 Allergy status to narcotic agent
CPT/HCPCS: 36415; 71020; 80048; 83605; 85025; 87040; 94640; 96374; 99283; J1100

== ENCOUNTER 2017-01-28 03:04 | Observation (INO) | payer OTHER ==
[~2017-01-28] VITALS: Ht 165.1 cm; Wt 56.4 kg
[~2017-01-28 03:04] MED LIST changes: +PRED20TA PO
[2017-01-28] MEDS ORDERED: methylPREDNISolone INJ 125 MG/2 ML VIAL (J2930) IV ONE (03:30)
[2017-01-28 03:43] LABS: BASO % 0.1 % (0.0-1.0); EOS # 0.1 K/mm3 (0.0-0.50); EOS % 1.5 % (0.0-3.0); LARGE UNSTAINED CELL # 0.1 K/mm3 (0.0-0.4); LARGE UNSTAINED CELL % 0.8 % (0.0-4.0); LYMPH # 1.1 K/mm3 (1.5-4.5); LYMPH % 15.7 % (24.0-44.0); MEAN CORPUSCULAR HEMOGLOBIN 32.9 pg (27.0-33.0); MEAN CORPUSCULAR HGB CONC 34.2 g/dl (32.0-36.5); MEAN CORPUSCULAR VOLUME 96.3 fl (80.0-96.0); MONO # 0.5 K/mm3 (0.0-0.8); MONO % 6.6 % (0.0-5.0); NEUTROPHILS # 5.1 K/mm3 (1.8-7.7); NEUTROPHILS % 75.3 % (36.0-66.0); PLATELET COUNT, AUTOMATED 351 k/mm3 (150-450); RED CELL DISTRIBUTION WIDTH 12.9 % (11.5-14.5); WHITE BLOOD COUNT 6.8 K/mm3 (4.0-10.0)
[2017-01-28] MEDS: IPRATROPIUM 0.5MG/ALBUTEROL 2.5MG INH SOL UD 3ML (DUONEB)(J7620) NEB PRN ×2 (03:44→03:45)
[2017-01-28 04:13] LABS: ABG BASE EXCESS -2.7 (-2.0-2.0); ABG HCO3 19.9 MEQ/L (22.0-26.0); ABG PARTIAL PRESSURE CO2 28.2 mmHg (35.0-45.0); ABG PARTIAL PRESSURE O2 85.4 mmHg (75.0-100.0); ABG STANDARD HCO3 22.2 MEQ/L (22.0-26.0); ABG TOTAL CO2 20.8 MEQ/L (22.0-29.0); ABG pH (ARTERIAL) 7.467 UNITS (7.350-7.450)
[2017-01-28 04:15] LABS: ANION GAP 8 MEQ/L (8-16); BLOOD UREA NITROGEN 15 MG/DL (7-18); CALCIUM LEVEL 8.5 MG/DL (8.5-10.1); CARBON DIOXIDE LEVEL 28 MEQ/L (21-32); CHLORIDE LEVEL 103 MEQ/L (98-107); CREATININE FOR GFR 0.81 MG/DL (0.55-1.02); GLOMERULAR FILTRATION RATE > 60.0 (>51); GLUCOSE, FASTING 83 MG/DL (70-105); POTASSIUM SERUM 3.6 MEQ/L (3.5-5.1); SODIUM LEVEL 139 MEQ/L (136-145)
[2017-01-28] MEDS ORDERED: ISOVUE-370 76% 100ML VIAL (Q9967) As Ordered ONE (04:16)
--- NOTE | 2017-01-28 06:00 | REPUSA ---
CLINICAL HISTORY: Dyspnea, exclude PE. TECHNIQUE: Multiple incremental axial, coronal and oblique images are obtained from the thoracic inle t to the upper abdomen. Intravenous contrast material was administered as per pulmonary embolism prot ocol. COMMENTS: Compared to 01/20/17 study. Moderate centrilobular emphysema and chronic bronchitis again noted. 1.1 peripheral subpleural chronic calcified benign nodule of the right lower lobe. There is excellent opacification of pulmonary arterial system without evidence for pulmonary embolism. Aorta is of norm al caliber without evidence for dissection or aneurysm. There is no evidence of pleural or parenchyma l mass. There are no pleural effusions. There is no evidence of hilar or mediastinal lymphadenopathy. The heart and great vessels are within normal limits. Images of the upper abdomen demonstrate no evidence of adrenal mass. The bony structures are free of lytic or blastic lesions. Multilevel degenerative changes are seen in volving the visualized thoracolumbar spine. Scattered calcifications are seen involving the aorta and major branches compatible with atherosclerosis. IMPRESSION: No interval change. No evidence for pulmonary embolism. Emphysema. Chronic bronchitis. Small sliding hiatal hernia. Thank you for your kind referral of this patient.
--- NOTE | 2017-01-28 06:10 | REPUSA ---
CLINICAL HISTORY: STRIDOR, LARYNGEAL CA TECHNIQUE: Multiple axial CT images were obtained through the neck with IV contrast material. MPR cor onal and sagittal sequences were obtained. COMMENTS: Compared to 01/20/17 study. Again noted is left glottic/supraglottic soft tissue lesion. Interval appearance of diffuse significa nt soft tissue thickening of the epiglottic folds and supraglottic airway narrowing. There is no para vertebral soft tissue mass. The salivary glands are normal. There is no deep cervical or jugular lymphadenopathy. The paravertebr al soft tissue space is normal. Limited images through the posterior fossa demonstrate no evidence fo r tonsilar herniation. IMPRESSION: No interval change. Unchanged left glottic/supraglottic soft tissue lesion. Interval appearance of diffuse thickening of the aryepiglottic folds.
[2017-01-28] MEDS ORDERED: PRED20TA PO (06:20)
[2017-01-28] MEDS: IPRATROPIUM 0.5MG/ALBUTEROL 2.5MG INH SOL UD 3ML (DUONEB)(J7620) NEB SCH ×6 (07:20→21:11)
[2017-01-28] MEDS ORDERED: ALBUTEROL SULFATE 2.5 MG/0.5 ML INH NEB SOLN NEB PRN (08:30)
[2017-01-28] MEDS ORDERED: methylPREDNISolone INJ 125 MG/2 ML VIAL (J2930) IV SCH ×2 (09:00→10:00)
[2017-01-28] MEDS: HEPARIN SOD (PORCINE) 5000 UNITS/ML VIAL SC SCH ×3 (09:16→22:05)
[2017-01-28] MEDS: GABAPENTIN 300 MG CAP PO SCH ×2 (09:16→22:08)
[2017-01-28 10:30] VITALS: BP 138/66
[2017-01-28] MEDS: NICOTINE 14 MG/24 HR TRANSDERMAL TD SCH (11:55)
[2017-01-28] MEDS: SUCRALFATE 1 GM TAB PO SCH ×3 (11:55→22:08)
[2017-01-28 14:00] VITALS: BP 132/80
[2017-01-28] MEDS: ACETAMINOPHEN TAB 650MG DOSE (2X325MG) PO PRN (14:17)
[2017-01-28] MEDS: methylPREDNISolone INJ 125 MG/2 ML VIAL (J2930) IV SCH ×2 (17:08→22:06)
[2017-01-28] MEDS ORDERED: KETOROLAC 30 MG/ML VIAL (J1885) IV PRN (18:00)
[2017-01-28] MEDS ORDERED: CETIRIZINE (ZyrTEC) 10 MG TAB PO SCH (21:00)
[2017-01-28] MEDS ORDERED: ATORVASTATIN 20 MG TAB PO SCH (21:00)
[2017-01-28] MEDS ORDERED: LISINOPRIL 10 MG TAB PO SCH (21:00)
[2017-01-28 22:00] VITALS: BP 141/74
[2017-01-28 22:08] VITALS: BP 141/74
[2017-01-29 02:00] VITALS: BP 133/67
[2017-01-29] MEDS: methylPREDNISolone INJ 125 MG/2 ML VIAL (J2930) IV SCH ×2 (05:09→09:44)
[2017-01-29] MEDS: HEPARIN SOD (PORCINE) 5000 UNITS/ML VIAL SC SCH ×2 (05:10→14:00)
[2017-01-29] MEDS: ACETAMINOPHEN TAB 650MG DOSE (2X325MG) PO PRN (05:21)
[2017-01-29 06:21] LABS: EOS % 0.4 % (0.0-3.0); LARGE UNSTAINED CELL % 0.3 % (0.0-4.0); LYMPH # 0.5 K/mm3 (1.5-4.5); LYMPH % 4.7 % (24.0-44.0); MEAN CORPUSCULAR HEMOGLOBIN 33.9 pg (27.0-33.0); MEAN CORPUSCULAR HGB CONC 34.4 g/dl (32.0-36.5); MEAN CORPUSCULAR VOLUME 98.6 fl (80.0-96.0); MONO # 0.3 K/mm3 (0.0-0.8); MONO % 2.6 % (0.0-5.0); NEUTROPHILS # 8.9 K/mm3 (1.8-7.7); PLATELET COUNT, AUTOMATED 334 k/mm3 (150-450); RED CELL DISTRIBUTION WIDTH 12.9 % (11.5-14.5); WHITE BLOOD COUNT 9.7 K/mm3 (4.0-10.0)
[2017-01-29 06:37] LABS: ANION GAP 9 MEQ/L (8-16); BLOOD UREA NITROGEN 22 MG/DL (7-18); CALCIUM LEVEL 8.7 MG/DL (8.5-10.1); CARBON DIOXIDE LEVEL 27 MEQ/L (21-32); CHLORIDE LEVEL 104 MEQ/L (98-107); CREATININE FOR GFR 0.76 MG/DL (0.55-1.02); GLOMERULAR FILTRATION RATE > 60.0 (>51); GLUCOSE, FASTING 104 MG/DL (70-105); POTASSIUM SERUM 3.9 MEQ/L (3.5-5.1); SODIUM LEVEL 140 MEQ/L (136-145)
[2017-01-29] MEDS: IPRATROPIUM 0.5MG/ALBUTEROL 2.5MG INH SOL UD 3ML (DUONEB)(J7620) NEB SCH ×2 (07:08→11:22)
--- NOTE | 2017-01-29 08:26 | ECGEPIP ---
Stationary ECG Study [facility] - ED Test Date: 2017-01-28 Pat Name: JENNY SLAUGHTER Department: Room: - Gender: F [employer] Justice: rita : 1965 Requested By: CORBY Joaquin Order Number: [id number] Reading MD: Unruly Andrews Measurements Intervals [place] Rate: 101 P: 71 PA: 125 QRS: 34 QRSD: 78 T: 46 QT: 319 QTc: 414 Interpretive Statements SINUS TACHYCARDIA LEFT [employer] RBBB SIMILAR TO 01/20/17 Electronically Signed On 01-29-2017 8:26:07 EDT by Unruly Andrews
--- NOTE | 2017-01-29 09:23 | HPE ---
DATE OF ADMISSION: 01/28/2017 CHIEF COMPLAINT: Shortness of breath. PRIMARY CARE PROVIDER: Lisha Somers, nurse practitioner. ALLERGIES: CODEINE, PENICILLIN and SULFA. HISTORY OF PRESENT ILLNESS: This is a 51-year-old female with a history of laryngeal cancer diagnosed in 01/2016, status post radiation, who was recently in the hospital 01/20 and 01/21 for acute exacerbation of chronic obstructive pulmonary disease (COPD). At that time, she had a CT of the neck which revealed interval appearance of diffuse thickening of the aryepiglottic fold, increased decrease of supraglottic airway narrowing. She was admitted, given intravenous (IV) Solu-Medrol, pulmonary treatments, signed AGAINST MEDICAL ADVICE (AMA) on 01/21. She continued pulmonary treatments at home. Returned to the emergency department on 01/22 with increased shortness of breath and wheezing. She was given steroids IV and albuterol, and discharged to home. She felt better for about a day, but then began experiencing increasing shortness of breath. She returned to the emergency room. She is still smoking cigarettes. Productive cough. Laboratory study showed WBC of 6.8, hemoglobin 11.2, hematocrit 32.8, platelets 351. Electrolytes were normal. BUN of 15, creatinine 0.81. She had a blood gas done showed pH of 7.46, pCO2 of 28, pO2 of 85.4, oxygen saturation was 96%. She had a CT of the chest which showed peripheral, chronic benign nodules of the right lower lobe. No evidence of pulmonary emboli. Emphysema, chronic bronchitis , small sliding hiatal hernia. CT of the neck was done, and showed no interval change. Unchanged left glottic, supraglottic soft tissue lesions. Interval appearance of diffuse thickening of the aryepiglottic folds, as noted on prior imaging. The patient was given 125 mg of Solu-Medrol, DuoNeb treatment times two, with improvement in her respirations. The patient was having no difficulty swallowing. Wheezing has improved. Assessment was done. The patient will be admitted observation status to the service of Dr. Borja, for acute exacerbation of COPD for IV steroids, aggressive pulmonary treatments, sputum for culture and sensitivity (C and S). The patient will be admitted to the medical floor. ELECTROCARDIOGRAM: Strip showed sinus tachycardia. EKG done in the emergency room (ER) showed sinus tachycardia of 101. SOCIAL HISTORY: The patient is single. She occasionally drinks alcohol. She still smokes a couple of cigarettes per day. She takes much less than even a half pack. PAST MEDICAL HISTORY: 1. COPD. 2. Laryngeal cancer. She has had radiation. 3. Tobacco abuse. 4. Dyslipidemia. 5. Hypertension. 6. Gastric ulcer. PAST SURGICAL HISTORY: 1. Left foot surgery. 2. Throat biopsy October 2016. 3. Direct laryngoscopy January 2017. HOME MEDICATIONS: - Combivent Respimat one puff four times a day - she was on a prednisone taper and was down to 20 mg by mouth daily - naproxen sodium 220 mg by mouth twice a day as needed for pain - atorvastatin 20 mg by mouth at bedtime - cetirizine 10 mg by mouth at bedtime - gabapentin 300 mg by mouth twice a day - lisinopril 10 mg by mouth at bedtime - Sucralfate 1 gram by mouth before food and at bedtime REVIEW OF SYSTEMS: 10 systems review was done. The patient complained of throat pain, respiratory distress. Was otherwise negative. No complaints of chest pain, no difficulty swallowing. No nausea, vomiting or diarrhea. OBJECTIVE: VITAL SIGNS: Blood pressure 130/80, pulse 110, respirations 18, oxygen saturation 97%. Height 65 inches. Weight 56.4 kg. Body mass index (BMI) 20.7. GENERAL: The patient is alert and oriented times three. HEENT: Pupils equal and react to light. Extraocular movement intact. Sclerae clear. Conjunctivae normal. No facial asymmetry. Pharynx, tongue, gums pink and moist. Tongue is midline. NECK: Supple without lymphadenopathy. No thyromegaly. No goiter. CHEST: Has scattered expiratory wheeze. No retraction. No stridor. HEART: Regular. ABDOMEN: Benign. Bowel sounds positive. GENITOURINARY/RECTAL: Not done. EXTREMITIES: No cyanosis, clubbing or edema. Peripheral pulses equal and palpable bilaterally. SKIN: Warm and dry. IMPRESSION: 1. Acute exacerbation of chronic obstructive pulmonary disease (COPD): Admit. IV Solu-Medrol. Pulmonary treatments with DuoNeb four times a day and albuterol every two hours as needed. Send a sputum for culture and sensitivity. 2. History of laryngeal cancer: Continue followup with Dr. Cid. Refused trach. 3. Increase in aryepiglottic fold. Interval appearance of diffuse thickening. Continue followup with Dr. Cid. 4. Hypertension, clinically stable. 5. Hypercholesterolemia. Continue diet and medication. The patient will be admitted to observation status for acute exacerbation of COPD having failed outpatient treatment. RANDALL
[2017-01-29] MEDS: SUCRALFATE 1 GM TAB PO SCH ×2 (09:44→12:00)
[2017-01-29] MEDS: GABAPENTIN 300 MG CAP PO SCH (09:44)
[2017-01-29] MEDS: NICOTINE 14 MG/24 HR TRANSDERMAL TD SCH (09:45)
[2017-01-29 10:00] VITALS: BP 149/66
[2017-01-29] MEDS ORDERED: PRED10TA2 PO (11:13)
--- NOTE | 2017-01-29 15:35 | DS.PDOC ---
Discharge Summary General Date of Admission Jan 28, 2017 at 08:18 Date of Discharge 01/29/17 Attending Physician: EZEQUIEL PADILLA MD Discharge Summary PROCEDURES PERFORMED DURING STAY: None. ADMITTING/DISCHARGE DIAGNOSES: 1. Acute COPD exacerbation 2. History of laryngeal cancer status post radiation 3. Chronic hoarseness, with epiglottic fold thickening, seen by ENT and recent admission with recommendations for elective trach which patient refuses. 4. Tobacco abuse, counseled on cessation less than 10 minutes. 5. Hypertension 6. Hyperlipidemia 7. History of gastric ulcer COMPLICATIONS/CHIEF COMPLAINT: Shortness of breath HISTORY OF PRESENT ILLNESS/HOSPITAL COURSE: This is a 51-year-old female past medical history COPD, laryngeal cancer status post radiation, active tobacco abuse who presents complaining of shortness of breath. Patient been short of breath over the past few days prior to admission with progressive worsening. Productive cough of white sputum. No fevers or chills. Had been using her inhaler without significant improvement. Presented to the ED with a COPD exacerbation treated with IV steroids, nebulizers, with significant improvement of her respiratory status. Patient is able to ambulate without dyspnea now. The patient was very eager to leave home today as she does have 3 cats at home. She refused to stay another day and states she prefers to take prednisone instead of being on the IV steroids and to be discharged today. She continues to smoke tobacco. I did intellectual property counsel her on cessation, and she states she will follow-up with her primary care physician soon so she can get Chantix, as she has discussed with her primary care physician. Patient will need to follow-up with primary care physician and ENT in one week. Patient is return to the ED if symptoms worsen. DISCHARGE MEDICATIONS: Please see below. ALLERGIES: Please see below. PHYSICAL EXAMINATION ON DISCHARGE: Vitals: (see below) General: No acute distress, laying comfortably in bed. HEENT: Moist mucous membranes. Neck: No JVD or lymphadenopathy Cardiac: RRR, No murmurs Pulm: Minimal expiratory wheezing b/l. No rhonchi. No stridor. No use of accessory muscles. Significant improvement since yesterday. Abd: NT/ND + BS Ext: No edema or cyanosis LABORATORY DATA: Please see below. IMAGING: CT chest 01/28/17 IMPRESSION: No interval change. No evidence for pulmonary embolism. Emphysema. Chronic bronchitis. Small sliding hiatal hernia. CT neck 01/28/17 IMPRESSION: No interval change. Unchanged left glottic/ supraglottic soft tissue lesion. Interval appearance of diffuse thickening of the aryepiglottic folds. PROGNOSIS: Guarded ACTIVITY: As tolerated. DIET: As tolerated DISCHARGE PLAN/DISPOSITION: Discharge home DISCHARGE INSTRUCTIONS: 1. Follow-up with PCP and ENT in one week. DISCHARGE CONDITION: Stable. TIME SPENT ON DISCHARGE: Greater than 30 minutes. Vital Signs/I&Os Vital Signs Date Time Temp Pulse Resp B/P (MAP) Pulse Ox O2 Delivery O2 Flow Rate FiO2 01/29/17 10:00 97.0 99 22 149/66 (93) 99 01/29/17 09:00 Room Air 01/28/17 06:48 2.0 I&O- Last 24 Hours up to 6 AM 01/30/17 05:59 Intake Total 360 ml Output Total 300 ml Balance 60 ml Laboratory Data Labs 24H Laboratory Tests 2 01/29/17 05:48: White Blood Count 9.7, Red Blood Count 3.60L, Hemoglobin 12.2, Hematocrit 35.5L , Mean Corpuscular Volume 98.6H, Mean Corpuscular Hemoglobin 33.9H, Mean Corpuscular Hemoglobin Concent 34.4, Red Cell Distribution Width 12.9, Platelet Count 334, Neutrophils (%) (Auto) 92.0H, Lymphocytes (%) (Auto) 4.7L, Monocytes (%) (Auto) 2.6, Eosinophils (%) (Auto) 0.4, Basophils (%) (Auto) 0.0, Neutrophils # (Auto) 8.9H, Lymphocytes # (Auto) 0.5L, Monocytes # (Auto) 0.3, Eosinophils # (Auto) 0.0, Basophils # (Auto) 0.0, Large Unclassified Cells % 0.3 , Large Unclassified Cells # 0.0, Anion Gap 9, Glomerular Filtration Rate > 60.0 , Blood Urea Nitrogen 22H, Creatinine 0.76, Sodium Level 140, Potassium Level 3.9, Chloride Level 104, Carbon Dioxide Level 27, Calcium Level 8.7 CBC/BMP Laboratory Tests 01/29/17 05:48 Red Blood Count 3.60 L, Mean Corpuscular Volume 98.6 H, Mean Corpuscular Hemoglobin 33.9 H, Mean Corpuscular Hemoglobin Concent 34.4, Red Cell Distribution Width 12.9, Neutrophils (%) (Auto) 92.0 H, Lymphocytes (%) (Auto) 4.7 L, Monocytes (%) (Auto) 2.6, Eosinophils (%) (Auto) 0.4, Basophils (%) (Auto ) 0.0, Neutrophils # (Auto) 8.9 H, Lymphocytes # (Auto) 0.5 L, Monocytes # (Auto ) 0.3, Eosinophils # (Auto) 0.0, Basophils # (Auto) 0.0, Calcium Level 8.7 Microbiology Microbiology 01/28/17 Gram Stain - Final, Resulted 01/28/17 Sputum Culture, Resulted Pending Discharge Medications Scheduled Albuterol/Ipratropium (Combivent Respimat 20-100 Mcg/Act) 1 Aer Aer, 1 PUFF INH QID, (Reported) Atorvastatin Calcium (Atorvastatin Calcium) 20 Mg Tab, 20 MG PO QHS, (Reported) Cetirizine HCl (All Day Allergy) 10 Mg Tab, 10 MG PO QHS, (Reported) Gabapentin (Gabapentin) 300 Mg Cap, 300 MG PO BID, (Reported) Lisinopril (Lisinopril) 10 Mg Tab, 10 MG PO QHS, (Reported) Prednisone (Prednisone) 10 Mg Tab, 10 MG PO TAPER Take 4 tabs daily x 3 days, then 3 tabs daily x 3 days, then 2 tabs daily x 3 days, then 1 tab daily x 3 days and stop Sucralfate (Carafate) 1 Gm Tab, 1 GM PO ACHS, (Reported) PATIENT STATES SHE PUT ALL 4 TABS IN WATER AND MIXES UNTIL THEY ARE DISOLVED. WHEN HER ULCER FLARES UP, SHE SIPS ON IT. Scheduled PRN Naproxen Sodium (Aleve) 220 Mg Tab, 220 MG PO BIDP PRN for PAIN, (Reported) Allergies Coded Allergies: Codeine (Verified Allergy, Unknown, 01/22/17) Penicillins (Verified Allergy, Unknown, 01/22/17) Sulfa Antibiotics (Verified Allergy, Unknown, 01/22/17) EZEQUIEL PADILLA MD Jan 29, 2017 15:35
== END 2017-01-29 14:00 | disposition home or self-care (01) ==
LOC: M ED 03:04 → M ED INP 08:18 → M MSPAV 10:39
PROVIDERS: ADMIT Internal Medicine; ATTEND Internal Medicine
DX: J44.1 Chronic obstructive pulmonary disease with (acute) exacerbation (principal); R06.02 Shortness of breath; Z85.21 Personal history of malignant neoplasm of larynx; Z92.3 Personal history of irradiation; R49.0 Dysphonia; F17.210 Nicotine dependence, cigarettes, uncomplicated; I10 Essential (primary) hypertension; E78.4 Other hyperlipidemia; Z79.51 Long term (current) use of inhaled steroids; Z79.52 Long term (current) use of systemic steroids; Z79.899 Other long term (current) drug therapy; Z88.0 Allergy status to penicillin; Z88.2 Allergy status to sulfonamides
CPT/HCPCS: 36415; 36600; 70491; 71275; 80048; 82803; 85025; 87070; 87077; 87186; 87205; 93000; 93041; 94640; 96374; 96376; 99285; J2930; Q9967

== ENCOUNTER 2017-02-12 04:18 | Inpatient (IN) | payer OTHER ==
[~2017-02-12] VITALS: Ht 167.6 cm; Wt 70.5 kg
[2017-02-12 05:11] LABS: BASO % 0.1 % (0.0-1.0); EOS # 0.1 10^3/uL (0.0-0.50); EOS % 1.3 % (0.0-3.0); IMMATURE GRANULOCYTE % 0.8 % (0-0); LYMPH # 1.1 10^3/uL (1.5-4.5); LYMPH % 13.4 % (24.0-44.0); MEAN CORPUSCULAR HEMOGLOBIN 33.7 pg (27.0-33.0); MEAN CORPUSCULAR HGB CONC 33.6 g/dl (32.0-36.5); MEAN CORPUSCULAR VOLUME 100.3 fl (80.0-96.0); MONO # 0.4 10^3/uL (0.0-0.8); MONO % 5.4 % (0.0-5.0); NEUTROPHILS # 6.3 10^3/uL (1.8-7.7); PLATELET COUNT, AUTOMATED 212 10^3/uL (150-450); RED CELL DISTRIBUTION WIDTH 15.3 % (11.5-14.5); WHITE BLOOD COUNT 7.9 10^3/uL (4.0-10.0)
[2017-02-12 05:14] LABS: ANION GAP 5 MEQ/L (8-16); BLOOD UREA NITROGEN 23 MG/DL (7-18); CALCIUM LEVEL 8.7 MG/DL (8.5-10.1); CARBON DIOXIDE LEVEL 34 MEQ/L (21-32); CHLORIDE LEVEL 101 MEQ/L (98-107); CREATININE FOR GFR 0.94 MG/DL (0.55-1.02); GLOMERULAR FILTRATION RATE > 60.0 (>51); GLUCOSE, FASTING 91 MG/DL (70-105); POTASSIUM SERUM 4.1 MEQ/L (3.5-5.1); SODIUM LEVEL 140 MEQ/L (136-145)
[2017-02-12] MEDS: IPRATROPIUM 0.5MG/ALBUTEROL 2.5MG INH SOL UD 3ML (DUONEB)(J7620) NEB PRN ×3 (05:14→05:46)
[2017-02-12] MEDS ORDERED: PROAAER10 INH (05:19)
[2017-02-12] MEDS ORDERED: BENZ200C53 PO (05:19)
[2017-02-12 05:30] LABS: ABG BASE EXCESS 4.4 (-2.0-2.0); ABG HCO3 27.8 MEQ/L (22.0-26.0); ABG PARTIAL PRESSURE CO2 37.1 mmHg (35.0-45.0); ABG STANDARD HCO3 28.4 MEQ/L (22.0-26.0); ABG pH (ARTERIAL) 7.493 UNITS (7.350-7.450)
--- NOTE | 2017-02-12 06:11 | REP ---
Clinical: Dyspnea and cough . Comparison: 02/16/2014 . Technique: PA and lateral. Findings: The mediastinum and cardiac silhouette are normal. The lung alvarado are clear and without acute consolidation, effusion, or pneumothorax. The skeletal structures are intact and normal. 12 mm rounded nodule in the right lower lung zone unchanged. Impression: 1. No acute cardiopulmonary process. Signed by Tj Yip MD 02/12/2017 06:02 A
[2017-02-12] MEDS: SUCRALFATE 1 GM TAB PO SCH ×5 (07:30→21:15)
[2017-02-12] MEDS ORDERED: ISOVUE-370 76% 100ML VIAL (Q9967) As Ordered ONE (08:29)
[2017-02-12] MEDS ORDERED: KETOROLAC 30 MG/ML VIAL (J1885) IV PRN (08:45)
[2017-02-12] MEDS ORDERED: BENZONATATE 100 MG CAP PO PRN (08:45)
--- NOTE | 2017-02-12 09:17 | ECGEPIP ---
Stationary ECG Study [facility] - ED Test Date: 2017-02-12 Pat Name: JENNY SLAUGHTER Department: Room: - Gender: F Behavioral Consultant: ladan : 1965 Requested By: CORBY Joaquin Order Number: [id number] Reading MD: Unruly Andrews Measurements Intervals [place] Rate: 119 P: 79 NH: 116 QRS: 63 QRSD: 66 T: 58 QT: 276 QTc: 389 Interpretive Statements SINUS TACHYCARDIA WITH SHORT NH INTERVAL POSSIBLE LEFT ATRIAL ENLARGEMENT INC. RBBB RATE CHANGE COMPARED TO 01/28/17 Electronically Signed On 02-12-2017 9:17:36 EDT by Unruly Andrews
[2017-02-12] MEDS: GABAPENTIN 300 MG CAP PO SCH ×2 (09:30→21:11)
[2017-02-12] MEDS: PANTOPRAZOLE 40MG TAB (PROTONIX) PO SCH (09:30)
[2017-02-12] MEDS: methylPREDNISolone INJ 125 MG/2 ML VIAL (J2930) IV SCH ×2 (09:32→15:00)
[2017-02-12] MEDS ORDERED: dexameTHASONE 4 MG/ML 1ML VIAL (J1100) IV ONE (10:00)
--- NOTE | 2017-02-12 10:15 | REP ---
CT NECK WITH CONTRAST: HISTORY: Neck pain. CONCLUSIONS: Isovue 370, 75 mL. COMPARISON: 01/28/2017 A mass is present in the hypopharynx. The mass is increased in size compared to the previous study. There is extension into the aryepiglottic folds. There is inferior extension into the larynx to the level of the vocal cords. There is moderate to severe mass effect on the airway. There is no extension into the oropharynx. The naso- and oropharynx and subglottic trachea are normal in appearance. The salivary and thyroid glands are normal in size and density. Small lymph nodes less than 1 cm in size are present in the internal jugular chains, posterior triangles and submandibular areas. Atherosclerotic calcification is present at the carotid bifurcations. Degenerative change is present in the cervical spine. The lung apices are clear. The visualized sinuses are clear. IMPRESSION: There has been increase in size of the hypopharynx mass compared to the previous study. There is moderate to severe mass effect on the airway. Signed by Urban Venegas MD 02/12/2017 11:01 A
[2017-02-12] MEDS ORDERED: dexameTHASONE 20 MG/5 ML VIAL (J1100) IV ONE (11:45)
[2017-02-12] MEDS ORDERED: NS 1,000 ML IV SCH (12:15)
--- NOTE | 2017-02-12 14:30 | HPEPDOC ---
[facility] Medical History & Physical Date of Admission Feb 12, 2017 Attending Physician: EZEQUIEL PADILLA MD History and Physical PRIMARY CARE PROVIDER: Lisha Somers nurse practitioner ATTENDING: Ezequiel Padilla M.D. CHIEF COMPLAINT: Shortness of breath HISTORY OF PRESENT ILLNESS: 51-year-old from a past medical history laryngeal cancer status post radiation, tobacco abuse, COPD, hypertension, hyperlipidemia, history of gastric ulcer presents complaining of shortness of breath. Patient was recently discharged on January 29, and was placed on steroid taper which she just completed. Patient states after she stopped her steroids, her dyspnea had significantly worsened. She stopped smoking cigarettes although she was counseled on cessation. Patient received nebulizers in the ED. She also received steroids with improvement of her symptoms. Upon evaluation, patient had a stat CT of the neck which noted a hypoglossal mass with moderate to severe airway edema. Patient was given Decadron. Dr. Ott was consulted and saw the patient at bedside. The patient is to be taken to the OR today for a trach. Patient refused trach on multiple admissions in the past. She understands that without this trach, she will likely have complete closure of her airway and subsequent . PAST MEDICAL HISTORY: As per HPI PAST SURGICAL HISTORY: Left foot surgery, throat biopsy, direct laryngoscopy SOCIAL HISTORY: Still smokes tobacco, no umbilical or illicit drug use. FAMILY HISTORY: Noncontributory ALLERGIES: Please see below. REVIEW OF SYSTEMS: HEENT: Denies sore throat/headache CARDIOVASCULAR: Denies chest pain/palpitations RESPIRATORY: + shortness of breath/cough GASTROINTESTINAL: denies nausea/vomiting GENITOURINARY: Denies dysuria/urinary urgency. MUSCULOSKELETAL: Denies myalgias/arthralgias NEUROLOGICAL: Denies any focal weakness HOME MEDICATIONS: Please see below. PHYSICAL EXAMINATION: Vitals: (see below) General: No acute distress, laying comfortably in bed. HEENT: Moist mucous membranes. Neck: No JVD or lymphadenopathy. Mild stridor. Cardiac: RRR, No murmurs Pulm: Mild extremity wheezing. No rhonchi. No use of accessory muscles. Abd: NT/ND + BS Ext: No edema or cyanosis Alert and oriented 3 LABORATORY DATA: See below. IMAGING: CT of the neck on 02/12/17 A mass is present in the hypopharynx. The mass is increased in size compared to the previous study. There is extension into the aryepiglottic folds. There is inferior extension into the larynx to the level of the vocal cords. There is moderate to severe mass effect on the airway. There is no extension into the oropharynx. The naso- and oropharynx and subglottic trachea are normal in appearance. The salivary and thyroid glands are normal in size and density. Small lymph nodes less than 1 cm in size are present in the internal jugular chains, posterior triangles and submandibular areas. Atherosclerotic calcification is present at the carotid bifurcations. Degenerative change is present in the cervical spine. The lung apices are clear. The visualized sinuses are clear. IMPRESSION: There has been increase in size of the hypopharynx mass compared to the previous study. There is moderate to severe mass effect on the airway. Chest x-ray on 02/12/17 Impression: 1. No acute cardiopulmonary process. MICROBIOLOGY: Please see below. ASSESSMENT/PLAN: 1. 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 Ott in the ED. Status post Decadron. Scheduled for the OR for trach. Previously refused trach on multiple admissions. Has a history of laryngeal cancer status post radiation. 2. Acute COPD exacerbation- continue nebs and steroids. 3. Tobacco abuse- counseled on cessation. Refused nicotine patch. 4. Hypertension continue meds- 5. Hyperlipidemia- continue home meds 6. History of gastric ulcer DVT prophylaxis- per ENT after trach Prognosis guarded. Vital Signs Vital Signs Date Time Temp Pulse Resp B/P (MAP) Pulse Ox O2 Delivery O2 Flow Rate FiO2 02/12/17 11:46 97.4 99 18 162/77 (105) 99 Room Air Laboratory Data Labs 24H Laboratory Tests 2 02/12/17 04:42: Immature Granulocyte % (Auto) 0.8H, White Blood Count 7.9, Red Blood Count 3.32L , Hemoglobin 11.2L, Hematocrit 33.3L, Mean Corpuscular Volume 100.3H, Mean Corpuscular Hemoglobin 33.7H, Mean Corpuscular Hemoglobin Concent 33.6, Red Cell Distribution Width 15.3H, Platelet Count 212, Neutrophils (%) (Auto) 79.0H , Lymphocytes (%) (Auto) 13.4L, Monocytes (%) (Auto) 5.4H, Eosinophils (%) (Auto ) 1.3, Basophils (%) (Auto) 0.1, Neutrophils # (Auto) 6.3, Lymphocytes # (Auto) 1.1L, Monocytes # (Auto) 0.4, Eosinophils # (Auto) 0.1, Basophils # (Auto) 0.0, Immature Granulocyte # (Auto) 0.1H, Nucleated Red Blood Cells % (auto) 0.0, Anion Gap 5L, Glomerular Filtration Rate > 60.0, Blood Urea Nitrogen 23H, Creatinine 0.94, Sodium Level 140, Potassium Level 4.1, Chloride Level 101, Carbon Dioxide Level 34H, Calcium Level 8.7, Total Creatine Kinase 104, Creatine Kinase MB 2.9, Creatine Kinase MB Relative Index 2.78, Troponin I < 0.02 02/12/17 05:09: Blood Gas Bicarbonate Standard 28.4H, Arterial Blood pH 7.493H, Arterial Blood Partial Pressure CO2 37.1, Arterial Blood Partial Pressure O2 67.0L, Arterial Blood Total CO2 29.0, Arterial Blood HCO3 27.8H, Arterial Blood Base Excess 4.4H , Arterial Blood Oxygen Saturation 94.2L CBC/BMP Laboratory Tests 02/12/17 04:42 Red Blood Count 3.32 L, Mean Corpuscular Volume 100.3 H, Mean Corpuscular Hemoglobin 33.7 H, Mean Corpuscular Hemoglobin Concent 33.6, Red Cell Distribution Width 15.3 H, Neutrophils (%) (Auto) 79.0 H, Lymphocytes (%) (Auto ) 13.4 L, Monocytes (%) (Auto) 5.4 H, Eosinophils (%) (Auto) 1.3, Basophils (%) (Auto) 0.1, Neutrophils # (Auto) 6.3, Lymphocytes # (Auto) 1.1 L, Monocytes # ( Auto) 0.4, Eosinophils # (Auto) 0.1, Basophils # (Auto) 0.0, Calcium Level 8.7, Total Creatine Kinase 104 Microbiology Microbiology 02/12/17 Blood Culture, Received Pending 02/12/17 Blood Culture, Received Pending 02/12/17 Blood Culture, Received Pending 02/12/17 Blood Culture, Received Pending Home Medications Scheduled Albuterol/Ipratropium (Combivent Respimat 20-100 Mcg/Act) 1 Aer Aer, 1 PUFF INH QID Atorvastatin Calcium (Atorvastatin Calcium) 20 Mg Tab, 20 MG PO QHS Cetirizine HCl (All Day Allergy) 10 Mg Tab, 10 MG PO QHS Gabapentin (Gabapentin) 300 Mg Cap, 600 MG PO BID Lisinopril (Lisinopril) 10 Mg Tab, 10 MG PO QHS Sucralfate (Carafate) 1 Gm Tab, 1 GM PO ACHS PATIENT STATES SHE PUT ALL 4 TABS IN WATER AND MIXES UNTIL THEY ARE DISOLVED. WHEN HER ULCER FLARES UP, SHE SIPS ON IT. Scheduled PRN Albuterol Sulfate (Proair Hfa) 108 Mcg/Act Aer, 2 PUFF INH QID PRN for SHORTNESS OF BREATH Benzonatate (Benzonatate) 200 Mg Cap, 200 MG PO TID PRN for COUGH MDD 3 Naproxen Sodium (Aleve) 220 Mg Tab, 220 MG PO BIDP PRN for PAIN Allergies Coded Allergies: Codeine (Verified Allergy, Unknown, 01/22/17) Penicillins (Verified Allergy, Unknown, 01/22/17) Sulfa Antibiotics (Verified Allergy, Unknown, 01/22/17) EZEQUIEL PADILLA MD Feb 12, 2017 14:30
[2017-02-12] MEDS ORDERED: CETACAINE SPRAY 20GM (FLOOR STOCK) As Ordered ONE (17:12)
[2017-02-12] MEDS ORDERED: LIDOCAINE W/EPINEPHRINE 1% 20ML VIAL As Ordered ONE (17:12)
[2017-02-12] MEDS ORDERED: ROCURONIUM BROMIDE 50 MG/5 ML VIAL/SYRINGE As Ordered ONE (17:54)
[2017-02-12] MEDS ORDERED: fentaNYL 100 MCG/2 ML INJECTION (J3010) As Ordered ONE ×3 (17:54→19:10)
[2017-02-12] MEDS ORDERED: PROPOFOL 200 MG/20 ML VIAL As Ordered ONE (17:54)
[2017-02-12] MEDS ORDERED: MIDAZOLAM INJ 2 MG/2 ML VIAL (J2250) As Ordered ONE (17:54)
[2017-02-12] MEDS ORDERED: NEOSTIGMINE 10 MG/10 ML VIAL (J2710) As Ordered ONE (18:01)
[2017-02-12] MEDS ORDERED: GLYCOPYRROLATE INJ 0.2 MG/ML 2 ML VIAL As Ordered ONE (18:01)
[2017-02-12] MEDS ORDERED: dexameTHASONE 4 MG/ML 1ML VIAL (J1100) As Ordered ONE (18:02)
[2017-02-12] MEDS ORDERED: ONDANSETRON 4MG/2ML VIAL (J2405) As Ordered ONE (18:02)
[2017-02-12] MEDS: fentaNYL 100 MCG/2 ML INJECTION (J3010) IV PRN ×4 (19:10→19:25)
[2017-02-12] MEDS ORDERED: ONDANSETRON 4MG/2ML VIAL (J2405) IV PRN (19:15)
[2017-02-12] MEDS ORDERED: LR 1,000 ML IV SCH ×2 (19:15→19:30)
[2017-02-12 20:08] VITALS: BP 142/67
[2017-02-12 20:10] VITALS: O2SAT 97
[2017-02-12] MEDS: HYDROcodone/APAP LIQUID 7.5-325MG 15ML UDC (LORTAB ELIXIR) PO PRN (21:05)
[2017-02-12] MEDS: dexameTHASONE 20 MG/5 ML VIAL (J1100) IV SCH (21:06)
[2017-02-12 21:10] VITALS: BP 142/67
[2017-02-12] MEDS: LISINOPRIL 10 MG TAB PO SCH (21:10)
[2017-02-12] MEDS: ATORVASTATIN 20 MG TAB PO SCH (21:11)
[2017-02-12] MEDS: CETIRIZINE (ZyrTEC) 10 MG TAB PO SCH (21:12)
[2017-02-13] VITALS: BP 125/95
[2017-02-13 04:00] VITALS: BP 112/52
[2017-02-13] MEDS: dexameTHASONE 20 MG/5 ML VIAL (J1100) IV SCH ×3 (04:30→20:05)
[2017-02-13] MEDS: HYDROcodone/APAP LIQUID 7.5-325MG 15ML UDC (LORTAB ELIXIR) PO PRN ×2 (04:31→09:06)
[2017-02-13 05:31] LABS: BASO % 0.1 % (0.0-1.0); IMMATURE GRANULOCYTE % 0.6 % (0-0); LYMPH # 0.3 10^3/uL (1.5-4.5); LYMPH % 2.6 % (24.0-44.0); MEAN CORPUSCULAR HEMOGLOBIN 33.2 pg (27.0-33.0); MEAN CORPUSCULAR HGB CONC 33.8 g/dl (32.0-36.5); MEAN CORPUSCULAR VOLUME 98.3 fl (80.0-96.0); MONO # 0.3 10^3/uL (0.0-0.8); MONO % 3.3 % (0.0-5.0); NEUTROPHILS # 9.8 10^3/uL (1.8-7.7); NEUTROPHILS % 93.4 % (36.0-66.0); PLATELET COUNT, AUTOMATED 194 10^3/uL (150-450); RED CELL DISTRIBUTION WIDTH 15.3 % (11.5-14.5); WHITE BLOOD COUNT 10.5 10^3/uL (4.0-10.0)
[2017-02-13 05:56] LABS: ANION GAP 7 MEQ/L (8-16); BLOOD UREA NITROGEN 24 MG/DL (7-18); CALCIUM LEVEL 8.6 MG/DL (8.5-10.1); CARBON DIOXIDE LEVEL 25 MEQ/L (21-32); CHLORIDE LEVEL 105 MEQ/L (98-107); CREATININE FOR GFR 0.82 MG/DL (0.55-1.02); GLOMERULAR FILTRATION RATE > 60.0 (>51); GLUCOSE, FASTING 125 MG/DL (70-105); POTASSIUM SERUM 4.3 MEQ/L (3.5-5.1); SODIUM LEVEL 137 MEQ/L (136-145)
[2017-02-13] MEDS: SUCRALFATE 1 GM TAB PO SCH ×4 (07:30→20:00)
[2017-02-13 08:00] VITALS: BP 154/70
[2017-02-13] MEDS: GABAPENTIN 300 MG CAP PO SCH ×2 (08:57→20:05)
[2017-02-13] MEDS: PANTOPRAZOLE 40MG TAB (PROTONIX) PO SCH (08:58)
[2017-02-13 12:00] VITALS: BP 99/55
--- NOTE | 2017-02-13 12:23 | IPN ---
DATE: 02/13/2017 She had a tracheostomy placed last night. She has no chest pain. Says that the pain in her ears and jaw has improved. Would like to go home. Temperature is 98.6, pulse 90, respiratory rate 20, blood pressure 154/70 and 93% on a trach collar. Positive fluid balance of 1430. No bowel movements noted. She is awake and appropriately interactive, pleasantly conversant and has a trach in place. No significant secretions noted. Breathing is symmetrical. I:E ratio is 1:3. No wheezes, rales or rhonchi. Heart is distant sounding. Normal S1, S2. Abdomen is soft, doughy and nontender. White cell count 10.5, hemoglobin 9.9 and platelets 194. BUN 24, creatinine 0.8. Blood cultures negative times four. Pathology is pending. ASSESSMENT: This is a 51-year-old with acute respiratory distress from upper airway compromise noted to have a hypoglossal mass with moderate severe airway edema. PLAN: 1. Upper airway mass, status post trach, being followed by Dr. Ott. Will need education. Will be followed by Dr. Ott as an inpatient. 2. The patient headache acute chronic obstructive pulmonary disease (COPD) and exacerbation and would appear to be compensated on nebs and steroids. 3. The patient continues to use tobacco and has refused nicotine patch. 4. The patient has hypertension. Blood pressure is reasonably well controlled. 5. The patient has hyperlipidemia. 6. Deep vein thrombosis (DVT) prophylaxis will be mechanical.
[2017-02-13 16:00] VITALS: BP 114/55
[2017-02-13 20:00] VITALS: BP 122/58
[2017-02-13] MEDS: CETIRIZINE (ZyrTEC) 10 MG TAB PO SCH (20:05)
[2017-02-13] MEDS: ATORVASTATIN 20 MG TAB PO SCH (20:05)
[2017-02-13] MEDS: LISINOPRIL 10 MG TAB PO SCH (20:05)
[2017-02-14] VITALS: BP 117/62
[2017-02-14 04:00] VITALS: BP 114/59
[2017-02-14] MEDS: dexameTHASONE 20 MG/5 ML VIAL (J1100) IV SCH ×2 (04:47→12:48)
[2017-02-14 05:44] LABS: IMMATURE GRANULOCYTE % 0.7 % (0-0); LYMPH # 0.3 10^3/uL (1.5-4.5); LYMPH % 3.5 % (24.0-44.0); MEAN CORPUSCULAR HEMOGLOBIN 33.3 pg (27.0-33.0); MEAN CORPUSCULAR HGB CONC 33.9 g/dl (32.0-36.5); MEAN CORPUSCULAR VOLUME 98.4 fl (80.0-96.0); MONO # 0.5 10^3/uL (0.0-0.8); NEUTROPHILS # 8.9 10^3/uL (1.8-7.7); NEUTROPHILS % 90.8 % (36.0-66.0); PLATELET COUNT, AUTOMATED 204 10^3/uL (150-450); RED CELL DISTRIBUTION WIDTH 15.6 % (11.5-14.5); WHITE BLOOD COUNT 9.8 10^3/uL (4.0-10.0)
[2017-02-14 05:59] LABS: ANION GAP 6 MEQ/L (8-16); BLOOD UREA NITROGEN 25 MG/DL (7-18); CALCIUM LEVEL 8.3 MG/DL (8.5-10.1); CARBON DIOXIDE LEVEL 27 MEQ/L (21-32); CHLORIDE LEVEL 105 MEQ/L (98-107); CREATININE FOR GFR 0.77 MG/DL (0.55-1.02); GLOMERULAR FILTRATION RATE > 60.0 (>51); GLUCOSE, FASTING 127 MG/DL (70-105); POTASSIUM SERUM 3.8 MEQ/L (3.5-5.1); SODIUM LEVEL 138 MEQ/L (136-145)
[2017-02-14] MEDS: SUCRALFATE 1 GM TAB PO SCH ×2 (07:30→12:00)
[2017-02-14 08:00] VITALS: BP 125/64
[2017-02-14] MEDS: GABAPENTIN 300 MG CAP PO SCH (08:07)
[2017-02-14] MEDS: HYDROcodone/APAP LIQUID 7.5-325MG 15ML UDC (LORTAB ELIXIR) PO PRN (08:09)
[2017-02-14] MEDS: PANTOPRAZOLE 40MG TAB (PROTONIX) PO SCH (08:28)
[2017-02-14] MEDS ORDERED: PRED10TA2 PO (11:58)
[2017-02-14 12:00] VITALS: BP 116/57
--- NOTE | 2017-02-14 15:53 | DSES ---
DATE OF ADMISSION: 02/12/2017 DATE OF DISCHARGE: 02/14/2017 Specialists involved in her care include Dr. Charles Ott. Procedures performed during the stay included placement of tracheostomy. DISCHARGE DIAGNOSES: 1. Acute hypoxic respiratory failure with hypopharyngeal mass. 2. Acute chronic obstructive pulmonary disease (COPD) exacerbation. 3. Tobacco abuse. 4. Hypertension. 5. Hyperlipidemia. 6. History of gastric ulcer. FOLLOWING IS A SUMMARY OF HER HOSPITALIZATION: This is a 51-year-old with history of laryngeal cancer status post radiation who presented with increasing shortness of breath. Patient was found to have a hypoglossal mass with moderate to severe airway edema. Was seen in consultation by Dr. Ott, who took the patient to the operating room (OR) for a tracheostomy. Mass was biopsied. Results of that biopsy are pending. Patient was monitored in the intensive care unit for 2 days. She received instruction in the use of tracheostomy care. Breathing improved markedly immediately after placement of tracheostomy. No complaints of pain, chest pain, shortness of breath on the day of discharge. Is ready to go home. Temperature is 97.3, pulse 98, respiratory rate 18, blood pressure 125/64, 93% on room air. She is awake, appropriately interactive, pleasantly conversant. Breathing is symmetrical. I-to-E ratio is 1:3. Some upper airway sounds are noted. Heart is in regular rate and rhythm. White cell count 9.8, hemoglobin 10.7, platelets of 204. BUN 25, creatinine 0.77. Again, tissue pathology is pending. DISCHARGE INSTRUCTIONS: Include the following: Followup with Lisha Somers within 1 week, [address]. Ott per his instructions. Activity as tolerated. Tracheostomy care as instructed. No smoking. Diet as tolerated. - prednisone tapering dose as written, dropping 50% per 2 days - continue albuterol four times a day as needed for shortness of breath - Combivent four times daily - atorvastatin 20 mg by mouth daily at bedtime - Tessalon two times a day as needed for cough - cetirizine 10 mg by mouth daily at bedtime - Neurontin 600 mg twice daily - lisinopril 10 mg by mouth daily at bedtime - Naprosyn 220 mg twice a day as needed for pain - sucralfate as directed Edited: [facility] 02/15/2017 [id number]
== END 2017-02-14 15:54 | disposition home or self-care (01) | DRG 133 ==
LOC: M ED 04:18 → M ED INP 08:39 → M ICU 19:52
PROVIDERS: ADMIT Internal Medicine; ATTEND Internal Medicine
DX: J96.01 Acute respiratory failure with hypoxia (principal); J44.1 Chronic obstructive pulmonary disease with (acute) exacerbation; I10 Essential (primary) hypertension; F17.200 Nicotine dependence, unspecified, uncomplicated; E78.5 Hyperlipidemia, unspecified; J39.2 Other diseases of pharynx; J38.3 Other diseases of vocal cords; Z88.5 Allergy status to narcotic agent; Z88.0 Allergy status to penicillin; Z88.2 Allergy status to sulfonamides; Z85.21 Personal history of malignant neoplasm of larynx

== ENCOUNTER 2017-02-24 09:39 | Inpatient (IN) | payer OTHER ==
[~2017-02-24] VITALS: Ht 167.6 cm; Wt 67.1 kg
[~2017-02-24 09:39] MED LIST changes: +BENZ200C53 PO; +PROAAER10 INH
[2017-02-24] MEDS ORDERED: methylPREDNISolone INJ 125 MG/2 ML VIAL (J2930) IV ONE (10:15)
[2017-02-24] MEDS ORDERED: ACETAMINOPHEN TAB 650MG DOSE (2X325MG) PO ONE (10:15)
[2017-02-24 10:21] LABS: MEAN CORPUSCULAR HEMOGLOBIN 33.3 pg (27.0-33.0); MEAN CORPUSCULAR HGB CONC 33.8 g/dl (32.0-36.5); MEAN CORPUSCULAR VOLUME 98.6 fl (80.0-96.0); PLATELET COUNT, AUTOMATED 167 10^3/uL (150-450); RED CELL DISTRIBUTION WIDTH 14.6 % (11.5-14.5); WHITE BLOOD COUNT 8.6 10^3/uL (4.0-10.0)
[2017-02-24 10:31] LABS: ABG BASE EXCESS -2.9 (-2.0-2.0); ABG HCO3 19.4 MEQ/L (22.0-26.0); ABG PARTIAL PRESSURE CO2 26.3 mmHg (35.0-45.0); ABG PARTIAL PRESSURE O2 57.1 mmHg (75.0-100.0); ABG STANDARD HCO3 21.9 MEQ/L (22.0-26.0); ABG TOTAL CO2 20.2 MEQ/L (22.0-29.0); ABG pH (ARTERIAL) 7.486 UNITS (7.350-7.450)
[2017-02-24 10:37] LABS: LEFT SHIFT POS FLAG; POSITIVE MORPH POS FLAG; WBC SCAT POS FLAG
[2017-02-24 10:38] LABS: ADD MANUAL DIFFER YES; DIFF SLIDE NUMBER 120
[2017-02-24 10:45] LABS: ANION GAP 6 MEQ/L (8-16); BLOOD UREA NITROGEN 13 MG/DL (7-18); CALCIUM LEVEL 8.1 MG/DL (8.5-10.1); CARBON DIOXIDE LEVEL 27 MEQ/L (21-32); CHLORIDE LEVEL 99 MEQ/L (98-107); CREATININE FOR GFR 1.05 MG/DL (0.55-1.02); GLOMERULAR FILTRATION RATE 58.8 (>51); GLUCOSE, FASTING 86 MG/DL (70-105); SODIUM LEVEL 132 MEQ/L (136-145)
[2017-02-24 10:48] LABS: BANDS 3 % (< 11); BASOPHILS 1 % (0-4); EOSINOPHILS 2 % (0-5)
--- NOTE | 2017-02-24 11:03 | REP ---
Portable chest, 10:40 a.m., single AP view, patient sitting: Comparisons are 02/12/2017 and 02/16/2014. There is a stable granuloma in the right lung, unchanged from both prior studies. The lung alvarado otherwise clear. Cardiac size is normal. The denzel, mediastinum, and bony thorax are unremarkable. Impression: Signed by Leighton Pride MD 02/24/2017 10:54 A
[2017-02-24] MEDS: IPRATROPIUM 0.5MG/ALBUTEROL 2.5MG INH SOL UD 3ML (DUONEB)(J7620) NEB PRN ×3 (12:14→12:36)
[2017-02-24] MEDS ORDERED: LevoFLOXacin IV 500 MG in APPROPRIATE DILUENT 1 EA IV ONE (14:15)
[2017-02-24] MEDS ORDERED: guaiFENesin ER 600 MG TAB PO ONE (14:15)
[2017-02-24] MEDS ORDERED: LEVALBUTEROL 1.25 MG/0.5 ML CONCENTRATE NEB INH PRN (14:15)
[2017-02-24] MEDS ORDERED: BACI500O8 TOP (14:28)
[2017-02-24] MEDS ORDERED: BENA25CA4 PO (14:29)
[2017-02-24] MEDS ORDERED: VENTAER INH (14:31)
[2017-02-24] MEDS ORDERED: ADVI200T PO (14:33)
[2017-02-24] MEDS ORDERED: SODI0.9S NEB (14:33)
[2017-02-24] MEDS ORDERED: IPRA2IN INH (14:33)
[2017-02-24] MEDS ORDERED: diphenhydrAMINE 50 MG CAP PO PRN (14:45)
[2017-02-24] MEDS ORDERED: BACITRACIN OINT 30GM TOP PRN (14:45)
[2017-02-24] MEDS ORDERED: IPRATROPIUM 0.02% SOLN 0.5MG/2.5 ML NEB INH PRN (14:45)
[2017-02-24] MEDS ORDERED: BENZONATATE 100 MG CAP PO PRN (14:45)
--- NOTE | 2017-02-24 14:53 | HPEPDOC ---
[facility] Medical History & Physical Date of Admission Feb 24, 2017 History and Physical PRIMARY CARE PROVIDER: Lisha Somers nurse practitioner ATTENDING: Dr. Fernando Parra CHIEF COMPLAINT: Shortness of breath/cough HISTORY OF PRESENT ILLNESS: 51-year-old from a past medical history laryngeal cancer status post radiation, tobacco abuse, COPD, hypertension, hyperlipidemia, history of gastric ulcer, recent airway edema status post trach placement presents complaining of shortness of breath/cough. Patient was recently discharged after being noted to have airway edema and is status post trach placement. Patient states that since last night, she started to develop increased sputum production, cough, shortness of breath, as well as fevers with MAXIMUM TEMPERATURE of 102. Patient denies chest pain/palpitations. No nausea/vomiting. Patient states she has stopped smoking since her last admission. No sick contacts or recent travels. Otherwise has not had any trouble with her trach. PAST MEDICAL HISTORY: As per HPI PAST SURGICAL HISTORY: Left foot surgery, throat biopsy, direct laryngoscopy SOCIAL HISTORY: Recently quit smoking tobacco, no alcohol or illicit drug use. FAMILY HISTORY: Noncontributory ALLERGIES: Please see below. REVIEW OF SYSTEMS: HEENT: Denies sore throat/headache CARDIOVASCULAR: Denies chest pain/palpitations RESPIRATORY: + shortness of breath/cough GASTROINTESTINAL: denies nausea/vomiting GENITOURINARY: Denies dysuria/urinary urgency. MUSCULOSKELETAL: Denies myalgias/arthralgias NEUROLOGICAL: Denies any focal weakness HOME MEDICATIONS: Please see below. PHYSICAL EXAMINATION: Vitals: (see below) General: No acute distress, laying comfortably in bed. HEENT: Moist mucous membranes. Neck: No JVD or lymphadenopathy. No stridor. Trach with yellow mucus production. No bleeding or signs of infection around the trach. Cardiac: RRR, No murmurs Pulm: Expiratory wheezing bilaterally. No rhonchi. No use of accessory muscles. Abd: NT/ND + BS Ext: 1+ pitting edema bilateral lower extremities. Lower extremities are warm with area of cellulitis. Distal pulses intact. No cyanosis. Alert and oriented 3 LABORATORY DATA: See below. IMAGING: Chest x-ray on 02/24/17 Impression: There is a stable granuloma in the right lung, unchanged from both prior studies. The lung alvarado otherwise clear. Cardiac size is normal. The denzel, mediastinum , and bony thorax are unremarkable. MICROBIOLOGY: Please see below. ASSESSMENT/PLAN: 1. Acute hypoxic respiratory failure-secondary to acute COPD exacerbation. Increase by mouth production. Patient is afebrile. Questionable infiltrate, we' ll obtain CT of chest to better visualize. In the meantime, we'll place patient on Levaquin. Sputum culture/blood cultures. Mucinex./Steroids. 2. Lower extremity edema- patient states is been progressive over the past 2 weeks. Doppler u/s negative for DVT bilaterally. Consider diuresing when the ultrasounds back, and blood pressure stable.. 3. BLE cellulitis - started on vancomycin. blood cx sent 3. Tobacco abuse-recently stopped smoking at since last admission. 4. Hypertension continue meds-hold lisinopril for now. 5. Hyperlipidemia- continue home meds 6. History of gastric ulcer 7. Acute kidney injury. Baseline creatinine 0.7. Hold lisinopril for now. Consider restarting when renal function improves. DVT prophylaxis-enoxaparin Prognosis guarded. Vital Signs Vital Signs Date Time Temp Pulse Resp B/P (MAP) Pulse Ox O2 Delivery O2 Flow Rate FiO2 02/24/17 13:11 98.8 02/24/17 13:09 124 90 02/24/17 09:40 22 Room Air Laboratory Data Labs 24H Laboratory Tests 2 02/24/17 10:12: Nucleated Red Blood Cells % (auto) 0.0, Neutrophils 79H, Band Neutrophils 3, Lymphocytes (Manual) 10L, Monocytes (Manual) 5, Eosinophils (Manual) 2, Basophils (Manual) 1, Platelet Estimate NORMAL, Red Blood Cell Morphology NORMAL , Anion Gap 6L, Glomerular Filtration Rate 58.8, Lactic Acid Level 0.8, Blood Urea Nitrogen 13, Creatinine 1.05H, Sodium Level 132L, Potassium Level 4.0, Chloride Level 99, Carbon Dioxide Level 27, Calcium Level 8.1L, Ethyl Alcohol Level < 0.003 02/24/17 10:23: Blood Gas Bicarbonate Standard 21.9L, Arterial Blood pH 7.486H, Arterial Blood Partial Pressure CO2 26.3L, Arterial Blood Partial Pressure O2 57.1L, Arterial Blood Total CO2 20.2L, Arterial Blood HCO3 19.4L, Arterial Blood Base Excess - 2.9L, Arterial Blood Oxygen Saturation 89.9L CBC/BMP Laboratory Tests 02/24/17 10:12 Red Blood Count 2.91 L, Mean Corpuscular Volume 98.6 H, Mean Corpuscular Hemoglobin 33.3 H, Mean Corpuscular Hemoglobin Concent 33.8, Red Cell Distribution Width 14.6 H, Calcium Level 8.1 L Microbiology Microbiology 02/24/17 Blood Culture, Received Pending 02/24/17 Blood Culture, Received Pending 02/24/17 Respiratory Virus Panel (PCR) (ANGELINE) - Final, Complete Home Medications Scheduled Atorvastatin Calcium (Atorvastatin Calcium) 20 Mg Tab, 20 MG PO QHS Bacitracin Base (Bacitracin) 500 Unit/Gm Oin, 1 DOSE TOP ASDIRECTED USES WHEN CLEANING TRACH Cetirizine HCl (All Day Allergy) 10 Mg Tab, 10 MG PO QHS Gabapentin (Gabapentin) 300 Mg Cap, 600 MG PO QHS Lisinopril (Lisinopril) 10 Mg Tab, 10 MG PO QHS Sodium Chloride (Sodium Chloride 0.9%) 0.9 % Anupama, 0.9 % NEB ASDIRECTED USES MANY TIMES A DAY SHE CAN Sucralfate (Carafate) 1 Gm Tab, 4 GM PO DAILY PATIENT STATES SHE PUT ALL 4 TABS IN WATER AND MIXES UNTIL THEY ARE DISOLVED. WHEN HER ULCER FLARES UP, SHE SIPS ON IT. Scheduled PRN Albuterol Sulfate (Ventolin Hfa) 108 Mcg/Act Aer, 2 PUFFS INH Q4H PRN for SHORTNESS OF BREATH Benzonatate (Benzonatate) 200 Mg Cap, 200 MG PO TID PRN for COUGH MDD 3 Diphenhydramine HCl (Benadryl Allergy) 25 Mg Cap, 50 MG PO QHS PRN for SLEEP Ibuprofen (Advil) 200 Mg Tab, 400 MG PO Q6H PRN for PAIN Ipratropium [place] (Ipratropium [place]) 0.5 Mg/2.5 Ml Soln, 0.5 MG INH Q4H PRN for SHORTNESS OF BREATH Naproxen Sodium (Aleve) 220 Mg Tab, 220 MG PO BIDP PRN for PAIN Allergies Coded Allergies: Codeine (Verified Allergy, Unknown, 01/22/17) Penicillins (Verified Allergy, Unknown, 01/22/17) Sulfa Antibiotics (Verified Allergy, Unknown, 01/22/17) EZEQUIEL PADILLA MD Feb 24, 2017 14:53
--- NOTE | 2017-02-24 15:28 | REP ---
CT of the chest without IV contrast: There are no infiltrates. There are no pleural effusions. There are no masses. There is a calcified granuloma in the right lower lobe. There are no other nodules. There are calcified mediastinal nodes. There is no mediastinal lymph node enlargement. No axillary lymph node enlargement. The study is insensitive for hilar lymph node enlargement in the absence of IV contrast. However, there are calcified right hilar nodes. The unenhanced thoracic aorta is unremarkable. Cardiac size is normal. There is mild pericardial thickening versus small pericardial effusion measuring 2 - 3 mm in depth. The visualized unenhanced upper abdominal contents are unremarkable. Impression: There are no infiltrates, effusions, masses or nodules except for a calcified granuloma in the lower lobe of the right lung. There are calcified right hilar nodes and calcified mediastinal nodes. This is compatible with old healed granulomatous disease. There is mild pericardial thickening versus pericardial effusion measuring 2-3 mm in depth. Signed by Leighton Pride MD 02/24/2017 03:19 P
[2017-02-24 15:50] VITALS: BP 97/62
[2017-02-24 16:00] VITALS: BP 103/70
[2017-02-24] MEDS: LEVALBUTEROL 1.25 MG/0.5 ML CONCENTRATE NEB INH SCH ×3 (16:00→23:58)
--- NOTE | 2017-02-24 16:23 | REP ---
Bilateral lower extremity deep vein duplex ultrasound: The deep veins demonstrate normal compression, normal Doppler color flow and normal Doppler waveforms from the popliteal veins to the common femoral veins bilaterally. Impression: There is no deep vein thrombus in the right lower extremity or left lower extremity. Signed by Leighton Pride MD 02/24/2017 04:15 P
[2017-02-24] MEDS: LevoFLOXacin IV 500 MG in APPROPRIATE DILUENT 1 EA IV SCH (16:28)
[2017-02-24] MEDS: VANCOMYCIN HCL 1,000 MG, VIAL MATE ADAPTER 1 EACH in D5W 250 ML IV SCH (18:40)
[2017-02-24] MEDS: SUCRALFATE 1 GM TAB PO SCH ×2 (18:40→20:41)
[2017-02-24 20:00] VITALS: BP 103/56
[2017-02-24] MEDS ORDERED: VANCOMYCIN HCL 500 MG in D5W MINI-BAG PLUS 100 ML IV ONE (20:00)
[2017-02-24] MEDS: guaiFENesin ER 600 MG TAB PO SCH (20:41)
[2017-02-24] MEDS: ATORVASTATIN 20 MG TAB PO SCH (20:41)
[2017-02-24] MEDS: GABAPENTIN 300 MG CAP PO SCH (20:41)
[2017-02-24] MEDS: CETIRIZINE (ZyrTEC) 10 MG TAB PO SCH (20:41)
[2017-02-24 23:59] VITALS: BP 89/52
[2017-02-25] VITALS (8 sets, daily range): BP systolic 92–122; BP diastolic 52–66
[2017-02-25] MEDS: LEVALBUTEROL 1.25 MG/0.5 ML CONCENTRATE NEB INH SCH ×6 (03:41→23:30)
[2017-02-25] MEDS: VANCOMYCIN HCL 1,000 MG, VIAL MATE ADAPTER 1 EACH in D5W 250 ML IV SCH ×2 (05:13→17:43)
--- NOTE | 2017-02-25 08:01 | ECGEPIP ---
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
[2017-02-25] MEDS: ENOXAPARIN 40 MG/0.4 ML SYRINGE (J1650) SC SCH ×3 (09:00→11:31)
[2017-02-25] MEDS: guaiFENesin ER 600 MG TAB PO SCH (09:00)
[2017-02-25] MEDS: SUCRALFATE SUSP 1GM/10ML UD PO SCH ×4 (09:15→20:35)
[2017-02-25] MEDS: FUROSEMIDE 40 MG/4 ML VIAL (J1940) IV SCH (09:16)
[2017-02-25] MEDS: methylPREDNISolone INJ 125 MG/2 ML VIAL (J2930) IV SCH ×2 (09:16→20:36)
[2017-02-25] MEDS: ACETAMINOPHEN 325 MG/10.15 ML UDC PO PRN ×2 (09:17→17:44)
[2017-02-25] MEDS ORDERED: guaiFENesin SYRUP 200 MG/10 ML UDC PO PRN (09:45)
[2017-02-25 10:58] LABS: MEAN CORPUSCULAR HEMOGLOBIN 32.5 pg (27.0-33.0); MEAN CORPUSCULAR HGB CONC 33.7 g/dl (32.0-36.5); MEAN CORPUSCULAR VOLUME 96.3 fl (80.0-96.0); PLATELET COUNT, AUTOMATED 164 10^3/uL (150-450); RED CELL DISTRIBUTION WIDTH 14.2 % (11.5-14.5); WHITE BLOOD COUNT 6.6 10^3/uL (4.0-10.0)
[2017-02-25 11:04] LABS: ADD MANUAL DIFFER YES; DIFF SLIDE NUMBER 94; LEFT SHIFT POS FLAG; PLT CLUMPS? POS FLAG; POS COUNT POS FLAG; POSITIVE MORPH POS FLAG
[2017-02-25 11:20] LABS: ALBUMIN 2.4 GM/DL (3.2-5.2); ALBUMIN/GLOBULIN RATIO 0.77 (1.00-1.93); ALKALINE PHOSPHATASE 68 U/L (45-117); ALT/SGPT 59 U/L (12-78); ANION GAP 13 MEQ/L (8-16); ANISOCYTOSIS 1+; AST/SGOT 31 U/L (15-37); BILIRUBIN,TOTAL 0.3 MG/DL (0.2-1.0); BLOOD UREA NITROGEN 16 MG/DL (7-18); CALCIUM LEVEL 7.8 MG/DL (8.5-10.1); CARBON DIOXIDE LEVEL 22 MEQ/L (21-32); CHLORIDE LEVEL 106 MEQ/L (98-107); CREATININE FOR GFR 1.02 MG/DL (0.55-1.02); GLOMERULAR FILTRATION RATE > 60.0 (>51); GLUCOSE, FASTING 196 MG/DL (70-105); MAGNESIUM LEVEL 1.7 MG/DL (1.8-2.4); POTASSIUM SERUM 3.7 MEQ/L (3.5-5.1); SODIUM LEVEL 141 MEQ/L (136-145); TOTAL PROTEIN 5.5 GM/DL (6.4-8.2)
--- NOTE | 2017-02-25 11:29 | ECGEPIP ---
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
--- NOTE | 2017-02-25 12:12 | PHACANCOPD ---
PHARMACY VANCOMYCIN DOSING Pt Demographics Demographics Patient Age:51 , Weight:67.800 , Gender: female Adjusted Body Weight Date: 02/25/17, Adjusted Body Weight: [NA] Kg Events Past 24 Hours Events Past 24 Hours: NO: Dialysis, Diuretic Therapy, Change in CrCl, Fever, Elevation in WBC, Pending Diagnostics, Pending Procedures, Other Vancomycin Vancomycin indication: cellulitis Vancomycin Target Ranges: 15-20 mcg/ml Vancomycin Load Y/N: Yes Load Dose Date Time Vancomycin Load Dose: 1500mg Date: 02/24 Time: 18:00 Vancomycin Dose Date: 02/25/17. Current Vancomycin Dose: [1g IV q12h @06] Intermittent Dosing?: No Labs Labs Item Value Date Time Creatinine 1.05 MG/DL H 02/24/17 1012 Creatinine 1.02 MG/DL 02/25/17 1032 White Blood Count 8.6 10^3/uL 02/24/17 1012 White Blood Count 6.6 10^3/uL 02/25/17 1032 Band Neutrophils 3 % 02/24/17 1012 C-Reactive Protein, Quantitative 10.30 MG/DL H 02/24/17 1012 Micro Microbiology 02/24/17 Blood Culture - Preliminary, Resulted No growth after 24 hours . All specim... 02/24/17 Blood Culture - Preliminary, Resulted No growth after 24 hours . All specim... 02/24/17 Gram Stain - Final, Resulted 02/24/17 Sputum Culture, Resulted Pending 02/24/17 Respiratory Virus Panel (PCR) (ANGELINE) - Final, Complete Creatinine Clearance Date:02/25/17. Creatinine Clearance: [65 ml/min]. Pending Labs Vanco trough scheduled 02/26 @05:00 Assessment and Plan Maintaining Current Dose?: Yes Reason for dose change: No Dose Change Pharmacist Note Pharmacist Note Date: 02/25/17. Pharmacist note: pt was admitted for COPD exacerbation (started on Levaquin) and was also noted to have b/l lower extremity cellulitis. She has not been on vancomycin at our facility in the past, nor does she have an apparent Hx of MRSA. Her medical hx is notable for laryngeal cancer s/p radiation and the pt currently has a trach collar. I have started her on a vancomycin 1500mg load followed by 1g IV q12h. I have a trough scheduled before the 4th dose. Blood and sputum cultures are pending. We will continue to monitor and make adjustments as necessary. Maximo Bryant Pharm.D. Feb 25, 2017 12:12
--- NOTE | 2017-02-25 13:04 | IPNPDOC ---
Text Note Date of Service The patient was seen on 02/25/17. NOTE Subjective: Patient is a 51 year old female with a PMHx of Laryngeal CA (s/p radiation), Tobacco Abuse, COPD, HTN, DLP, Hx of Gastric ulcer and Recent airway edema s/p Trach placement who presented to the ER with complaints of SOB. She noted a productive cough with increased sputum production, and a fever of 102. She also noted that she just completed her prednisone taper. Patient was admitted for COPD exacerbation. Patient was seen and examined at the bedside. Currently she notes that her breathing has improved significantly. She notes that she is able to clear her secretions better today. Objective: Vitals (See below) General: Lying in bed, no acute distress, comfortable, AAOx3 HEENT: NC, AT, +Trach collar CVS: RRR, +S1S2 Lungs: Fair air entry b/l, mild expiratory wheezing appreciated bilaterally Abdomen: Soft, ND, NT Extremities: 3+ pitting edema bilaterally, - Calf tenderness, Erythema, Warmth and Tenderness bilaterally appreciated Assessment and plan: Acute hypoxic respiratory failure - likely 2/2 Acute COPD exacerbation - Presented with SOB, productive cough and fever from home - Physical with expiratory wheezing - Sputum cultures pending, Respiratory panel negative, Blood cultures - no growth at 24 hours - CT Chest 02/24: no infiltrates, effusions, masses or nodules; Calcified granuloma in RLL, calcified hilar nodes, calcified mediastinal nodes - old healed granulomatous disease, mild pericardial thinking / effusion of 2-3mm - s/p Solumedrol loading dose - c/w Solumedrol 60 IV q12h and Duoneb LE edema / erythema / tenderness - possibly 2/2 cellulitis, possibly 2/2 chronic LE edema - 2/2 corticosteroid use, possible R heart failure - Patient has noted improvement in LE edema and erythema - Fever of 102 was noted by patient at home and noted upon ER arrival - Duplex US 02/24: Negative for DVT - ECHO ordered - c/w Vancomycin and Levaquin for now - Added Furosemide 40 IV q24 hours Cellulitis - No significant elevation in WBC, Lactic acid negative - See above Elevated Cr / Possible CKD - Baseline of 0.7-1.0 - Will monitor for now Tobacco abuse - Stopped smoking from prior admission HTN - c/w Holding lisinopril - Start Furosemide IV DLP - c/w Atorvastatin GERD / Hx of Gastric Ulcer - c/w Sucralfate DVT Prophylaxis - c/w Lovenox VS,Fishbone, I+O VS, Fishbone, I+O Laboratory Tests 02/25/17 10:32 Red Blood Count 2.71 L, Mean Corpuscular Volume 96.3 H, Mean Corpuscular Hemoglobin 32.5, Mean Corpuscular Hemoglobin Concent 33.7, Red Cell Distribution Width 14.2, Calcium Level 7.8 L, Aspartate Amino Transf (AST/SGOT) 31, Alanine Aminotransferase (ALT/SGPT) 59, Alkaline Phosphatase 68, Total Bilirubin 0.3, Total Protein 5.5 L, Albumin 2.4 L Vital Signs Date Time Temp Pulse Resp B/P (MAP) Pulse Ox O2 Delivery O2 Flow Rate FiO2 02/25/17 12:00 Trach Collar 4.0 28 02/25/17 10:50 72 24 122/66 (84) 98 02/25/17 08:09 97.4 I&O- Last 24 Hours up to 6 AM 02/26/17 06:00 Intake Total 700 ml Output Total 200 ml Balance 500 ml CHERIE CHAPA MD Feb 25, 2017 13:04
[2017-02-25] MEDS: LevoFLOXacin IV 500 MG in APPROPRIATE DILUENT 1 EA IV SCH (16:46)
[2017-02-25] MEDS: GABAPENTIN 300 MG CAP PO SCH (20:35)
[2017-02-25] MEDS: ATORVASTATIN 20 MG TAB PO SCH (20:35)
[2017-02-25] MEDS: CETIRIZINE (ZyrTEC) 10 MG TAB PO SCH (20:36)
[2017-02-26 01:05] VITALS: BP 118/66
[2017-02-26] MEDS: LEVALBUTEROL 1.25 MG/0.5 ML CONCENTRATE NEB INH SCH ×3 (03:46→11:17)
[2017-02-26 04:32] VITALS: BP 108/64
[2017-02-26 05:22] LABS: MEAN CORPUSCULAR HEMOGLOBIN 32.1 pg (27.0-33.0); MEAN CORPUSCULAR HGB CONC 33.2 g/dl (32.0-36.5); MEAN CORPUSCULAR VOLUME 96.6 fl (80.0-96.0); PLATELET COUNT, AUTOMATED 215 10^3/uL (150-450); RED CELL DISTRIBUTION WIDTH 14.3 % (11.5-14.5); WHITE BLOOD COUNT 5.8 10^3/uL (4.0-10.0)
[2017-02-26 05:24] LABS: LEFT SHIFT POS FLAG; POSITIVE DIFF POS FLAG; POSITIVE MORPH POS FLAG
[2017-02-26 05:25] LABS: ADD MANUAL DIFFER YES; DIFF SLIDE NUMBER 70
[2017-02-26 05:42] LABS: ALBUMIN 2.5 GM/DL (3.2-5.2); ALBUMIN/GLOBULIN RATIO 0.64 (1.00-1.93); ALKALINE PHOSPHATASE 61 U/L (45-117); ALT/SGPT 82 U/L (12-78); ANION GAP 7 MEQ/L (8-16); AST/SGOT 41 U/L (15-37); BILIRUBIN,TOTAL 0.2 MG/DL (0.2-1.0); BLOOD UREA NITROGEN 18 MG/DL (7-18); CALCIUM LEVEL 8.4 MG/DL (8.5-10.1); CARBON DIOXIDE LEVEL 26 MEQ/L (21-32); CHLORIDE LEVEL 105 MEQ/L (98-107); CREATININE FOR GFR 0.83 MG/DL (0.55-1.02); GLOMERULAR FILTRATION RATE > 60.0 (>51); GLUCOSE, FASTING 144 MG/DL (70-105); MAGNESIUM LEVEL 2.2 MG/DL (1.8-2.4); POTASSIUM SERUM 3.7 MEQ/L (3.5-5.1); SODIUM LEVEL 138 MEQ/L (136-145); TOTAL PROTEIN 6.4 GM/DL (6.4-8.2)
--- NOTE | 2017-02-26 05:50 | ECHO ---
DATE OF PROCEDURE: 02/25/2017 REFERRING PHYSICIAN: Sony Borja and Heidi Parra. INDICATION: Pericardial effusion. HEIGHT: 66 inches. WEIGHT: 154 pounds. DIMENSIONS: IVS: 1.0 LV: 4.1 LVPW: 1.2 LA: 3.9 Aorta: 3.3 Ascending aorta: 3.0 RV: 2.4 RV systolic: 2.5 FINDINGS: The study is of fair technical quality. Left ventricle is of normal size and systolic function with estimated LVEF 65-70%. Right ventricle does not appear enlarged. Both atria appear not worse than mildly enlarged. The aortic valve appears mildly sclerotic but has normal mobility. Mitral and tricuspid valves appear normal. Pulmonic valve was not well seen. No pericardial effusion is noted. Inferior vena cava is normal size. Aortic root is normal. Aortic arch and abdominal aorta were not well visualized. Doppler interrogation reveals no aortic stenosis or insufficiency. Same applies for mitral and tricuspid valves. Mitral inflow pattern and tissue Doppler imaging of mitral annulus reveals normal diastolic function. CONCLUSIONS: 1. Study is of fair technical quality. 2. Normal LV size, systolic and diastolic function. 3. No significant valvular disease. 4. No pericardial effusion. 5. Normal central venous pressure. 6. Unable to estimate pulmonary artery pressure. COMMENT: Subacute bacterial endocarditis (SBE) prophylaxis is not recommended.
--- NOTE | 2017-02-26 05:59 | PHACANCOPD ---
PHARMACY VANCOMYCIN DOSING Pt Demographics Demographics Patient Age:51 , Weight:67.100 , Gender: female Adjusted Body Weight Date: 02/25/17, Adjusted Body Weight: [NA] Kg Vancomycin Vancomycin indication: cellulitis Vancomycin Target Ranges: 15-20 mcg/ml Vancomycin Load Y/N: Yes Load Dose Date Time Vancomycin Load Dose: 1500mg Date: 02/24 Time: 18:00 Vancomycin Dose Date: 02/25/17. Current Vancomycin Dose: [1g IV q12h @06] Intermittent Dosing?: No Labs Micro Microbiology 02/24/17 Blood Culture - Preliminary, Resulted No growth after 24 hours . All specim... 02/24/17 Blood Culture - Preliminary, Resulted No growth after 24 hours . All specim... 02/24/17 Gram Stain - Final, Resulted 02/24/17 Sputum Culture, Resulted Pending 02/24/17 Respiratory Virus Panel (PCR) (ANGELINE) - Final, Complete Creatinine Clearance Date:02/25/17. Creatinine Clearance: [65 ml/min]. Pending Labs Vanco trough scheduled 02/26 @05:00=REPORTED 14.3 Assessment and Plan Maintaining Current Dose?: Yes Reason for dose change: No Dose Change Pharmacist Note Pharmacist Note Date: 02/26/17. Pharmacist note:Vancomycin trough drawn@04:54 this morning reported as 14.3-will continue current regimen of Vancomycin 1 GM Q12H Date: 02/25/17. Pharmacist note: pt was admitted for COPD exacerbation (started on Levaquin) and was also noted to have b/l lower extremity cellulitis. She has not been on vancomycin at our facility in the past, nor does she have an apparent Hx of MRSA. Her medical hx is notable for laryngeal cancer s/p radiation and the pt currently has a trach collar. I have started her on a vancomycin 1500mg load followed by 1g IV q12h. I have a trough scheduled before the 4th dose. Blood and sputum cultures are pending. We will continue to monitor and make adjustments as necessary. AISHA CHAMBERLAIN PHARMACY Feb 26, 2017 05:59
[2017-02-26] MEDS: VANCOMYCIN HCL 1,000 MG, VIAL MATE ADAPTER 1 EACH in D5W 250 ML IV SCH (06:01)
[2017-02-26] MEDS: SUCRALFATE SUSP 1GM/10ML UD PO SCH ×2 (06:01→12:19)
[2017-02-26 08:00] VITALS: BP 112/58
[2017-02-26] MEDS: ENOXAPARIN 40 MG/0.4 ML SYRINGE (J1650) SC SCH (08:53)
[2017-02-26] MEDS: FUROSEMIDE 40 MG/4 ML VIAL (J1940) IV SCH (08:53)
[2017-02-26] MEDS ORDERED: methylPREDNISolone INJ 40 MG/1 ML VIAL (J2920) IV SCH (09:00)
[2017-02-26] MEDS ORDERED: LEVO500T3 PO (10:40)
[2017-02-26] MEDS ORDERED: PRED10TA2 PO (10:40)
[2017-02-26] MEDS ORDERED: DOXY-278 PO (10:40)
[2017-02-26] MEDS ORDERED: FURO40TA2 PO (10:40)
[2017-02-26 12:00] VITALS: BP 102/58
--- NOTE | 2017-02-26 19:04 | DSES ---
DATE OF ADMISSION: 02/24/2017 DATE OF DISCHARGE: 02/26/2017 ATTENDING PHYSICIAN: Dr. Heidi Parra DICTATED BY: Dr. Heidi Parra PRIMARY CARE PHYSICIAN: Lisha Somers REFERRING PHYSICIAN: None. CONSULTING PHYSICIAN: None. CONDITION ON DISCHARGE: Stable. FINAL DIAGNOSIS: Acute chronic obstructive pulmonary disease (COPD) exacerbation. PROCEDURES: None. HISTORY OF PRESENT ILLNESS: Patient is a 51-year-old female with a past medical history of laryngeal cancers status-post radiation, tobacco abuse, COPD, hypertension, dyslipidemia, and history of gastric ulcers and recent airway edema status-post trach placement who presented to the emergency room with complaints of shortness of breath. She was noted to have a productive cough and increased sputum production and a fever of 102. She also noted that she just completed her prednisone taper. Patient was admitted for COPD exacerbation and cellulitis of her lower extremities. HOSPITAL COURSE: 1. Acute hypoxic respiratory failure, likely secondary to acute COPD exacerbation. Presented with shortness of breath, productive cough and fever from home. Physical revealed expiratory wheezing initially and had resolved throughout the hospital course. Sputum cultures remained pending throughout the hospital course. Blood cultures were negative after 48 hours. Respiratory panel was negative. CT chest on 02/24/2017 reveals no infiltrates, effusions, masses or nodularity. Calcified granuloma In the right lower lobe, calcified hilar node, calcified mediastinal nodes which was consistent with old healed granulomatous disease. Mild pericardial thickening versus effusion of 2-3 mm. Patient was put on Solu-Medrol throughout the hospital course with transition down and discharged home with prednisone on a tapering basis. 2. Lower extremity edema, erythema and tenderness, possibly secondary to cellulitis , possibly secondary to chronic lower extremity edema, secondary to corticosteroid use. Patient has noted improvement in her lower extremity edema and erythema throughout the hospital course. She has been put on Lasix 40 mg intravenous (IV) as well as started on vancomycin and Levaquin for her cellulitis of the lower extremities. The patient had a fever of 102 upon admission and remained afebrile throughout the hospital course. Duplex ultrasound was acquired and was negative for any deep venous thrombosis (DVT) on her bilateral lower extremities. Upon discharge the patient was discharged home with doxycycline and Levaquin to be continued for 5 more days duration. 3. Patient also had an echocardiogram that was ordered that revealed normal systolic and diastolic function. Patient was discharged home with furosemide 40 mg by mouth to be taken for the next 14 days. 4. Cellulitis. No significant elevation in white blood cell count or lactic acid. 5. Elevated creatinine/possible chronic kidney disease (CKD). Baseline is 0.7-1.0. 6. Tobacco abuse. Stopped smoking from prior admission. 7. Hypertension. Continue with holding lisinopril and patient has been started on furosemide. 8. Dyslipidemia. Continue with atorvastatin. 9 . Gastroesophageal reflux disease (GERD)/history of gastric ulcer. Continue with sucralfate. 10. Deep venous thrombosis prophylaxis. She has put on Lovenox. DISCHARGE MEDICATIONS: Patient has been discharged home with the following medications: - doxycycline 100 mg by mouth twice a day for 5 days - furosemide 40 mg by mouth daily for the next 14 days - levofloxacin 500 mg by mouth daily for the next 5 days - prednisone 10 mg to be taken as a tapering basis - albuterol 2 puffs inhaled every 4 hours as needed for shortness of breath - atorvastatin 20 mg by mouth nightly - bacitracin topically to be applied as directed - benzonatate 200 mg by mouth three times a day as needed for cough - cetirizine 10 mg by mouth nightly - diphenhydramine 50 mg by mouth nightly as needed for sleep - gabapentin 600 mg by mouth nightly - ibuprofen 400 mg by mouth every 6 hours as needed for pain. - ipratropium 0.5 mg inhaled every 4 hours as needed for shortness of breath - sucralfate 4 grams by mouth daily STOP MEDICATIONS: - lisinopril - naproxen. DISCHARGE INSTRUCTIONS: Patient was advised to followup with her primary care provider in the next 7 days as well as again prior to the completion of her prednisone. Patient has also been advised to followup with her ENT physician. Patient has been advised to remain compliant with the treatment plan and medications and will return to the emergency room if she experiences any problems. TIME SPENT ON DISCHARGE: Greater than 35 minutes.
== END 2017-02-26 14:15 | disposition home health service (06) | DRG 133 ==
LOC: M ED 09:39 → M ED INP 14:06 → M PCU 15:50
PROVIDERS: ADMIT Internal Medicine; ATTEND Internal Medicine
DX: J96.01 Acute respiratory failure with hypoxia (principal); N17.9 Acute kidney failure, unspecified; J84.10 Pulmonary fibrosis, unspecified; J44.1 Chronic obstructive pulmonary disease with (acute) exacerbation; L03.115 Cellulitis of right lower limb; L03.116 Cellulitis of left lower limb; I10 Essential (primary) hypertension; E78.5 Hyperlipidemia, unspecified; K21.9 Gastro-esophageal reflux disease without esophagitis; Z79.899 Other long term (current) drug therapy; Z87.891 Personal history of nicotine dependence; Z88.0 Allergy status to penicillin; Z88.5 Allergy status to narcotic agent; Z88.2 Allergy status to sulfonamides

== ENCOUNTER 2017-03-26 02:55 | Emergency (ER) | payer OTHER ==
[~2017-03-26 02:55] MED LIST changes: +ADVI200T PO; +BACI500O8 TOP; +BENA25CA4 PO; +DOXY-278 PO; +FURO40TA2 PO; +IPRA2IN INH; +LEVO500T3 PO; +SODI0.9S NEB; +VENTAER INH
[2017-03-26 03:38] LABS: BASO # 0.1 10^3/uL (0.0-0.2); BASO % 0.9 % (0.0-1.0); EOS # 0.1 10^3/uL (0.0-0.50); EOS % 1.2 % (0.0-3.0); IMMATURE GRANULOCYTE % 0.8 % (0-0); LYMPH # 2.8 10^3/uL (1.5-4.5); MEAN CORPUSCULAR HEMOGLOBIN 31.4 pg (27.0-33.0); MEAN CORPUSCULAR HGB CONC 33.7 g/dl (32.0-36.5); MEAN CORPUSCULAR VOLUME 93.2 fl (80.0-96.0); MONO # 0.5 10^3/uL (0.0-0.8); MONO % 5.7 % (0.0-5.0); NEUTROPHILS # 5.7 10^3/uL (1.8-7.7); NEUTROPHILS % 61.4 % (36.0-66.0); PLATELET COUNT, AUTOMATED 361 10^3/uL (150-450); RED CELL DISTRIBUTION WIDTH 14.6 % (11.5-14.5); WHITE BLOOD COUNT 9.2 10^3/uL (4.0-10.0)
[2017-03-26 03:48] LABS: ABG BASE EXCESS -6.3 (-2.0-2.0); ABG HCO3 18.5 MEQ/L (22.0-26.0); ABG PARTIAL PRESSURE O2 62.2 mmHg (75.0-100.0); ABG STANDARD HCO3 19.2 MEQ/L (22.0-26.0); ABG TOTAL CO2 19.5 MEQ/L (22.0-29.0); ABG pH (ARTERIAL) 7.353 UNITS (7.350-7.450)
[2017-03-26 03:58] LABS: ANION GAP 11 MEQ/L (8-16); BLOOD UREA NITROGEN 10 MG/DL (7-18); CALCIUM LEVEL 8.3 MG/DL (8.5-10.1); CARBON DIOXIDE LEVEL 20 MEQ/L (21-32); CHLORIDE LEVEL 99 MEQ/L (98-107); CREATININE FOR GFR 0.75 MG/DL (0.55-1.02); GLOMERULAR FILTRATION RATE > 60.0 (>51); GLUCOSE, FASTING 81 MG/DL (70-105); POTASSIUM SERUM 4.4 MEQ/L (3.5-5.1); SODIUM LEVEL 130 MEQ/L (136-145)
[2017-03-26] MEDS ORDERED: CLOT1CRE71 TOP (05:21)
[2017-03-26 05:36] VITALS: BP 136/84
--- NOTE | 2017-03-26 07:46 | REP ---
Clinical: Acute cough and dyspnea. Technique: PA and lateral. Comparison: 02/24/2017. Findings: Tracheostomy overlies the airway. Cardiac silhouette is normal. Bibasilar atelectasis is appreciated. Calcified nodule in the right lower lung zone unchanged. No effusion. No pneumothorax. Skeletal structures intact. Impression: Basilar atelectasis. Signed by Tj Yip MD 03/26/2017 07:38 A
--- NOTE | 2017-03-27 05:37 | ECGEPIP ---
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
== END 2017-03-26 05:37 | disposition home or self-care (01) ==
LOC: M ED 02:55 → EDBD 02:55 → M ED 05:37
DX: F10.129 Alcohol abuse with intoxication, unspecified (principal); Z72.0 Tobacco use

== ENCOUNTER → 2017-05-08 | Outpatient (CLI) | payer OTHER ==
[2017-05-08 12:19] LABS: BASO # 0.1 10^3/uL (0.0-0.2); EOS # 0.2 10^3/uL (0.0-0.50); EOS % 2.4 % (0.0-3.0); HEMATOCRIT 40.4 % (36.0-47.0); HEMOGLOBIN 13.1 g/dl (12.0-16.0); IMMATURE GRANULOCYTE % 0.2 % (0-0); LYMPH # 2.3 10^3/uL (1.5-4.5); LYMPH % 37.2 % (24.0-44.0); MEAN CORPUSCULAR HEMOGLOBIN 29.8 pg (27.0-33.0); MEAN CORPUSCULAR HGB CONC 32.4 g/dl (32.0-36.5); MEAN CORPUSCULAR VOLUME 91.8 fl (80.0-96.0); MONO # 0.5 10^3/uL (0.0-0.8); MONO % 8.5 % (0.0-5.0); NEUTROPHILS # 3.2 10^3/uL (1.8-7.7); NEUTROPHILS % 50.7 % (36.0-66.0); PLATELET COUNT, AUTOMATED 274 10^3/uL (150-450); RED CELL DISTRIBUTION WIDTH 13.9 % (11.5-14.5); WHITE BLOOD COUNT 6.2 10^3/uL (4.0-10.0)
[2017-05-08 13:16] LABS: ESTIMATED AVERAGE GLUCOSE 94 MG/DL (60-110); HEMOGLOBIN A1c 4.9 %
[2017-05-08 13:32] LABS: ALBUMIN 4.2 GM/DL (3.2-5.2); ALBUMIN/GLOBULIN RATIO 1.27 (1.00-1.93); ALKALINE PHOSPHATASE 69 U/L (45-117); ALT/SGPT 20 U/L (12-78); ANION GAP 8 MEQ/L (8-16); AST/SGOT 20 U/L (7-37); BILIRUBIN,TOTAL 0.5 MG/DL (0.2-1.0); BLOOD UREA NITROGEN 20 MG/DL (7-18); CALCIUM LEVEL 9.3 MG/DL (8.5-10.1); CARBON DIOXIDE LEVEL 28 MEQ/L (21-32); CHLORIDE LEVEL 104 MEQ/L (98-107); CHOLESTEROL LEVEL 182 MG/DL (<200); CHOLESTEROL RISK RATIO 2.116 (<5); CREATININE FOR GFR 1.08 MG/DL (0.55-1.02); FREE T4 1.08 NG/DL (0.76-1.46); GLOMERULAR FILTRATION RATE 56.9 (>51); GLUCOSE, FASTING 99 MG/DL (70-105); HDL CHOLESTEROL 86 MG/DL (>40); NON-HDL-C 96 MG/DL; SODIUM LEVEL 140 MEQ/L (136-145); TOTAL PROTEIN 7.5 GM/DL (6.4-8.2); TRIGLYCERIDES LEVEL 75 MG/DL (<150)
== END ==
LOC: M LAB 11:32
DX: C13.9 Malignant neoplasm of hypopharynx, unspecified (principal); E78.00 Pure hypercholesterolemia, unspecified; E55.9 Vitamin D deficiency, unspecified; Z51.81 Encounter for therapeutic drug level monitoring; Z79.899 Other long term (current) drug therapy
CPT/HCPCS: 84443

== ENCOUNTER → 2017-07-05 | Outpatient (CLI) | payer OTHER | LOC: M SLEEP HO 14:54 | DX: G47.30 Sleep apnea, unspecified (principal); R40.0 Somnolence | CPT/HCPCS: G0399 ==

== ENCOUNTER → 2017-07-24 | Outpatient (CLI) | payer OTHER ==
[2017-07-24 14:14] LABS: HEMOGLOBIN 13.5 g/dl (12.0-16.0)
== END ==
LOC: M CARPUL 13:27
DX: J44.9 Chronic obstructive pulmonary disease, unspecified (principal)
CPT/HCPCS: 94060

== ENCOUNTER → 2017-08-28 | Outpatient (CLI) | payer OTHER | LOC: M SLEEP 19:42 | DX: G47.33 Obstructive sleep apnea (adult) (pediatric) (principal) | CPT/HCPCS: 95811 ==

== ENCOUNTER → 2018-07-15 | Outpatient (CLI) | payer MEDICARE, OTHER ==
[~2018-07-15] MED LIST changes: -ALL10TAB27 PO; +ALL10TAB28 PO; -BENZ200C53 PO; +BENZ200C70 PO; +CLOT1CRE71 TOP; -DOXY-278 PO; +DOXY-350 PO; -GABA-282; -GABA-282 PO; +GABA-843; +GABA-843 PO; -VITA1CAP40 PO; +VITA50005 PO
[2018-07-15 15:10] LABS: BASO % 0.8 % (0.0-1.0); EOS # 0.1 10^3/uL (0.0-0.50); EOS % 2.1 % (0.0-3.0); HEMATOCRIT 41.1 % (36.0-47.0); HEMOGLOBIN 14.3 g/dl (12.0-15.5); LYMPH # 1.7 10^3/uL (1.5-4.5); LYMPH % 33.2 % (24.0-44.0); MEAN CORPUSCULAR HEMOGLOBIN 33.2 pg (27.0-33.0); MEAN CORPUSCULAR HGB CONC 34.8 g/dl (32.0-36.5); MEAN CORPUSCULAR VOLUME 95.4 fl (80.0-96.0); MONO # 0.4 10^3/uL (0.0-0.8); NEUTROPHILS # 2.9 10^3/uL (1.8-7.7); NEUTROPHILS % 55.9 % (36.0-66.0); PLATELET COUNT, AUTOMATED 223 10^3/uL (150-450); RED BLOOD COUNT 4.31 10^6/uL (4.00-5.40); WHITE BLOOD COUNT 5.1 10^3/uL (4.0-10.0)
[2018-07-15 15:37] LABS: ALBUMIN 3.8 GM/DL (3.2-5.2); ALT/SGPT 18 U/L (12-78); BILIRUBIN,TOTAL 0.7 MG/DL (0.2-1.0); BLOOD UREA NITROGEN 20 MG/DL (7-18); CALCIUM LEVEL 8.5 MG/DL (8.5-10.1); CARBON DIOXIDE LEVEL 26 MEQ/L (21-32); CHLORIDE LEVEL 106 MEQ/L (98-107); CHOLESTEROL LEVEL 188 MG/DL (<200); CHOLESTEROL RISK RATIO 2.238 (<5); CREATININE FOR GFR 0.88 MG/DL (0.55-1.30); FREE T4 0.89 NG/DL (0.76-1.46); GLOMERULAR FILTRATION RATE > 60.0 (>51); GLUCOSE, FASTING 85 MG/DL (70-100); HDL CHOLESTEROL 84 MG/DL (>40); LDL CHOLESTEROL 89 MG/DL (<100); NON-HDL-C 104 MG/DL; SODIUM LEVEL 138 MEQ/L (136-145); TOTAL PROTEIN 6.8 GM/DL (6.4-8.2); TRIGLYCERIDES LEVEL 76 MG/DL (<150)
== END ==
LOC: M LAB 14:48
PROVIDERS: ATTEND Physician Assistant Medical
DX: R53.83 Other fatigue (principal); I10 Essential (primary) hypertension; E78.2 Mixed hyperlipidemia

== ENCOUNTER → 2018-08-20 | Outpatient (CLI) | payer MEDICARE ==
[2018-08-20 12:16] LABS: BASO % 0.6 % (0.0-1.0); EOS # 0.1 10^3/uL (0.0-0.50); EOS % 1.8 % (0.0-3.0); HEMATOCRIT 39.7 % (36.0-47.0); HEMOGLOBIN 13.6 g/dl (12.0-15.5); LYMPH # 1.6 10^3/uL (1.5-4.5); LYMPH % 26.1 % (24.0-44.0); MEAN CORPUSCULAR HEMOGLOBIN 32.7 pg (27.0-33.0); MEAN CORPUSCULAR HGB CONC 34.3 g/dl (32.0-36.5); MEAN CORPUSCULAR VOLUME 95.4 fl (80.0-96.0); MONO # 0.4 10^3/uL (0.0-0.8); MONO % 6.8 % (0.0-5.0); NEUTROPHILS % 64.4 % (36.0-66.0); PLATELET COUNT, AUTOMATED 196 10^3/uL (150-450); RED BLOOD COUNT 4.16 10^6/uL (4.00-5.40); WHITE BLOOD COUNT 6.2 10^3/uL (4.0-10.0)
[2018-08-20 12:36] LABS: ALBUMIN 3.9 GM/DL (3.2-5.2); ALT/SGPT 30 U/L (12-78); AMYLASE 68 U/L (25-115); BILIRUBIN,DIRECT 0.2 MG/DL (0.0-0.2); BILIRUBIN,TOTAL 0.6 MG/DL (0.2-1.0); BLOOD UREA NITROGEN 18 MG/DL (7-18); CALCIUM LEVEL 9.4 MG/DL (8.5-10.1); CARBON DIOXIDE LEVEL 29 MEQ/L (21-32); CHLORIDE LEVEL 106 MEQ/L (98-107); CREATININE FOR GFR 0.83 MG/DL (0.55-1.30); GLOMERULAR FILTRATION RATE > 60.0 (>51); GLUCOSE, FASTING 97 MG/DL (70-100); LIPASE 279 U/L (73-393); POTASSIUM SERUM 5.6 MEQ/L (3.5-5.1); SODIUM LEVEL 138 MEQ/L (136-145); TOTAL PROTEIN 6.5 GM/DL (6.4-8.2)
== END ==
LOC: M LAB 11:12
PROVIDERS: ATTEND Internal Medicine Gastroenterology
DX: R63.4 Abnormal weight loss (principal)

== ENCOUNTER 2018-09-10 10:41 | Day surgery (SDC) | payer MEDICARE, MEDICAID ==
[~2018-09-10] VITALS: Ht 165.1 cm; Wt 49.4 kg
[~2018-09-10 10:41] MED LIST changes: +NS 1,000 ML IV ONE
[2018-09-10] MEDS ORDERED: PROPOFOL 200 MG/20 ML VIAL As Ordered ONE (11:43)
[2018-09-10] MEDS ORDERED: LIDOCAINE 2% INJ 100 MG/5 ML SDV (FOR ANES.) As Ordered ONE (11:43)
--- NOTE | 2018-09-10 13:42 | ROOR ---
Patient Name: Anne Marie Laureano Procedure Date: 09/10/2018 1:24 PM Date of : 1965 Age: 53 Room: [facility] Gender: Female Note Status: Finalized Procedure: Upper GI endoscopy Indications: Weight loss Providers: Ryan RODRIGUEZ MD Referring MD: FROY Donis Requesting Provider: Medicines: Monitored Anesthesia Care Complications: No immediate complications. Procedure: Pre-Anesthesia Assessment: - The heart rate, respiratory rate, oxygen saturations, blood pressure, adequacy of pulmonary ventilation, and response to care were monitored throughout the procedure. The Endoscope was introduced through the mouth, and advanced to the second part of duodenum. The upper GI endoscopy was accomplished without difficulty. The patient tolerated the procedure well. Findings: The esophagus was normal. The stomach was normal. The examined duodenum was normal. Impression: - Normal esophagus. - Normal stomach. - Normal examined duodenum. - No specimens collected. Recommendation: - Observe patient's clinical course. - Perform a colonoscopy today. - Return to my office in 3 weeks. Ryan Rodriguez MD Ryan RODRIGUEZ MD 09/10/2018 1:42:13 PM Electronically signed by Ryan RODRIGUEZ MD Number of Addenda: 0 Note Initiated On: 09/10/2018 1:24 PM Estimated Blood Loss: Estimated blood loss: none.
--- NOTE | 2018-09-10 14:04 | ROOR ---
Patient Name: Anne Marie Laureano Procedure Date: 09/10/2018 1:26 PM Date of : 1965 Age: 53 Room: [facility] Gender: Female Note Status: Finalized Procedure: Colonoscopy Indications: Weight loss Providers: Ryan RODRIGUEZ MD Referring MD: FROY Donis Requesting Provider: Medicines: Monitored Anesthesia Care Complications: No immediate complications. Procedure: Pre-Anesthesia Assessment: - The heart rate, respiratory rate, oxygen saturations, blood pressure, adequacy of pulmonary ventilation, and response to care were monitored throughout the procedure. The Colonoscope was introduced through the anus with the intention of advancing to the cecum. The scope was advanced to the sigmoid colon before the procedure was aborted. Medications were given. The colonoscopy was performed with difficulty due to a partially obstructing mass. The patient tolerated the procedure well. The quality of the bowel preparation was good. Findings: The perianal and digital rectal examinations were normal. A fungating and ulcerated completely obstructing large mass was found in the mid sigmoid colon (at about 35 cm from anal verge). The mass was circumferential. This was biopsied with a cold forceps for histology. Impression: - Malignant nearly completely obstructing tumor in the mid sigmoid colon (at about 35 cm from anal verge). Biopsied. - This is an incomplete colonoscopy, as I was unable to pass scope through the tumor. Only sigmoid was examined. Recommendation: - Refer to a surgeon at the next available appointment. - Perform CT scan (computed tomography) of the chest with contrast at appointment to be scheduled. - Perform magnetic resonance imaging (MRI) with gadolinium at appointment to be scheduled. Ryan Rodriguez MD Ryan RODRIGUEZ MD 09/10/2018 2:04:22 PM Electronically signed by Ryan RODRIGUEZ MD Number of Addenda: 0 Note Initiated On: 09/10/2018 1:26 PM Estimated Blood Loss: Estimated blood loss: none.
[2018-09-10 14:25] VITALS: BP 118/85
== END 2018-09-10 14:31 | disposition home or self-care (01) ==
LOC: M OPP 10:41
PROVIDERS: ATTEND Internal Medicine Gastroenterology
DX: C18.7 Malignant neoplasm of sigmoid colon (principal); K56.691 Other complete intestinal obstruction; R63.4 Abnormal weight loss

== ENCOUNTER → 2018-09-16 | Outpatient (CLI) | payer MEDICARE, MEDICAID ==
[~2018-09-16] MED LIST changes: -NS 1,000 ML IV ONE
--- NOTE | 2018-09-17 01:32 | REP ---
Clinical: Chronic COPD . Comparison: 03/26/2017, 05/27/2014. Technique: PA and lateral. Findings: The mediastinum and cardiac silhouette are normal. The lung alvarado demonstrate chronic changes related to COPD and prior granulomatous disease. Stable 12 mm calcified granuloma in the right lower lung zone remains unchanged. No acute consolidation, effusion, or pneumothorax. The skeletal structures are intact and normal. Impression: 1. Chronic changes related to COPD and prior granulomatous disease. 2. No acute cardiopulmonary process. Electronically Signed by Tj Yip MD 09/17/2018 01:23 A
== END ==
LOC: M RAD 14:30
PROVIDERS: ATTEND Internal Medicine Pulmonary Disease
DX: J44.9 Chronic obstructive pulmonary disease, unspecified (principal)

== ENCOUNTER → 2018-09-19 | Outpatient (CLI) | payer MEDICARE, MEDICAID ==
[~2018-09-19] MED LIST changes: +PERCOCET PO
--- NOTE | 2018-09-19 19:17 | ECGEPIP ---
Stationary ECG Study [facility] Test Date: 2018-09-19 Pat Name: JENNY SLAUGHTER Department: Room: - Gender: F Punch Hand: KAMERON : 1965 Requested By: MARCELO Barr Order Number: [id number] Reading MD: Lala Vazquez Measurements Intervals Randolph Rate: 67 P: 77 HI: 132 QRS: 59 QRSD: 76 T: 64 QT: 402 QTc: 424 Interpretive Statements SINUS RHYTHM SIMILAR TO 02/23/17 Electronically Signed On 09-19-2018 19:17:11 EDT by Lala Vazquez
== END ==
LOC: M EKG 15:08
PROVIDERS: ATTEND Surgery
DX: Z01.818 Encounter for other preprocedural examination (principal)

== ENCOUNTER 2018-09-24 05:44 | Inpatient (IN) | payer MEDICARE, MEDICAID ==
[2018-09-24] VITALS (9 sets, daily range): BP systolic 91–126; BP diastolic 58–68
[~2018-09-24] VITALS: Ht 167.6 cm; Wt 51.3 kg
[~2018-09-24 05:44] MED LIST changes: -PERCOCET PO
[2018-09-24] MEDS ORDERED: LevoFLOXacin IV 500 MG in APPROPRIATE DILUENT 1 EA IV ONE (06:00)
[2018-09-24] MEDS ORDERED: metroNIDAZOLE 500 MG in APPROPRIATE DILUENT 1 EA IV ONE (06:00)
[2018-09-24] MEDS ORDERED: ALVIMOPAN 12 MG CAPSULE (ENTEREG) PO ONE (06:00)
[2018-09-24] MEDS ORDERED: LR 1,000 ML IV SCH ×2 (06:00→12:15)
[2018-09-24] MEDS ORDERED: HEPARIN SOD (PORCINE) 5000 UNITS/ML VIAL SQ ONE (06:00)
[2018-09-24] MEDS ORDERED: BUPIVACAINE HCL 0.25% 30 ML VIAL As Ordered ONE (06:58)
[2018-09-24] MEDS ORDERED: LIDOCAINE 1% SDV INJ 30 ML VIAL As Ordered ONE (06:58)
[2018-09-24] MEDS ORDERED: PROPOFOL 200 MG/20 ML VIAL As Ordered ONE (07:12)
[2018-09-24] MEDS ORDERED: fentaNYL 250 MCG/5 ML INJECTION (J3010) As Ordered ONE (07:12)
[2018-09-24] MEDS ORDERED: dexameTHASONE 4 MG/ML 1ML VIAL (J1100) As Ordered ONE (07:12)
[2018-09-24] MEDS ORDERED: LIDOCAINE 2% INJ 100 MG/5 ML SDV (FOR ANES.) As Ordered ONE (07:12)
[2018-09-24] MEDS ORDERED: ONDANSETRON 4MG/2ML VIAL (J2405) As Ordered ONE (07:12)
[2018-09-24] MEDS ORDERED: MIDAZOLAM INJ 2 MG/2 ML VIAL (J2250) As Ordered ONE (07:12)
[2018-09-24] MEDS ORDERED: ROCURONIUM BROMIDE 50 MG/5 ML VIAL As Ordered ONE ×2 (07:12→09:12)
[2018-09-24] MEDS ORDERED: ACETAMINOPHEN 1000MG 100ML IV BTL (OFIRMEV) (J0131 PER 10MG) As Ordered ONE (09:03)
[2018-09-24] MEDS ORDERED: SUGAMMADEX SODIUM 500 MG/5 ML VIAL (BRIDION) As Ordered ONE (10:16)
[2018-09-24] MEDS ORDERED: KETOROLAC 60 MG/2 ML VIAL (J1885) As Ordered ONE (10:18)
[2018-09-24] MEDS ORDERED: PERCOCET 5MG/325MG TAB PO PRN ×2 (11:15)
[2018-09-24] MEDS ORDERED: MORPHINE 4 MG/ML 1ML VIAL/SYRINGE (J2270) IV PRN (11:15)
[2018-09-24] MEDS ORDERED: ONDANSETRON 4MG/2ML VIAL (J2405) IV PRN ×2 (11:15→12:15)
[2018-09-24] MEDS ORDERED: ALBUTEROL 90 MCG/ACT 8GM HFA INHALER INH PRN (11:15)
[2018-09-24] MEDS ORDERED: IPRATROPIUM 0.02% SOLN 0.5MG/2.5 ML NEB INH PRN (11:15)
[2018-09-24] MEDS ORDERED: LEVALBUTEROL 1.25 MG/0.5 ML CONCENTRATE NEB As Ordered ONE (11:31)
[2018-09-24] MEDS ORDERED: fentaNYL 100 MCG/2 ML INJECTION (J3010) As Ordered ONE (11:36)
[2018-09-24] MEDS: fentaNYL 100 MCG/2 ML INJECTION (J3010) IV PRN ×4 (11:39→11:55)
[2018-09-24] MEDS ORDERED: MORPHINE 10 MG/ML 1ML VIAL (J2270) As Ordered ONE (11:53)
[2018-09-24] MEDS: MORPHINE 10 MG/ML 1ML VIAL (J2270) IV PRN ×5 (12:15→12:49)
[2018-09-24] MEDS ORDERED: NORCO, ANEXSIA 5/325MG TABLET (HYDROcodone/ACETAMINOPHEN) PO PRN (12:15)
[2018-09-24] MEDS: KETOROLAC 30 MG/ML VIAL (J1885) IV PRN ×2 (14:21→21:01)
[2018-09-24] MEDS: HEPARIN SOD (PORCINE) 5000 UNITS/ML VIAL SC SCH ×4 (14:58→22:20)
[2018-09-24] MEDS: LR 1,000 ML IV SCH ×2 (14:59→21:14)
[2018-09-24] MEDS: SENOKOT S TAB PO SCH (20:59)
[2018-09-24] MEDS ORDERED: ROSUVASTATIN 10 MG TAB (CRESTOR) PO SCH (23:30)
[2018-09-24] MEDS ORDERED: ENOXAPARIN 60 MG/0.6 ML SYR (J1650) SC SCH (23:30)
[2018-09-25] MEDS: LR 1,000 ML IV SCH (00:26)
[2018-09-25 04:00] VITALS: BP_SYST 106; BP_SYST 133; BP_DIAS 65
[2018-09-25 05:42] LABS: BASO % 0.2 % (0.0-1.0); EOS % 0.5 % (0.0-3.0); HEMATOCRIT 32.2 % (36.0-47.0); LYMPH # 1.4 10^3/uL (1.5-4.5); LYMPH % 22.2 % (24.0-44.0); MEAN CORPUSCULAR HEMOGLOBIN 33.7 pg (27.0-33.0); MEAN CORPUSCULAR HGB CONC 34.2 g/dl (32.0-36.5); MEAN CORPUSCULAR VOLUME 98.8 fl (80.0-96.0); MONO # 0.6 10^3/uL (0.0-0.8); MONO % 9.2 % (0.0-5.0); NEUTROPHILS # 4.2 10^3/uL (1.8-7.7); NEUTROPHILS % 67.7 % (36.0-66.0); PLATELET COUNT, AUTOMATED 180 10^3/uL (150-450); RED BLOOD COUNT 3.26 10^6/uL (4.00-5.40); WHITE BLOOD COUNT 6.2 10^3/uL (4.0-10.0)
[2018-09-25 06:05] LABS: CALCIUM LEVEL 8.2 MG/DL (8.5-10.1); CREATININE FOR GFR 1.12 MG/DL (0.55-1.30); GLOMERULAR FILTRATION RATE 54.2 (>51); POTASSIUM SERUM 4.3 MEQ/L (3.5-5.1)
[2018-09-25 08:00] VITALS: BP 110/62
[2018-09-25] MEDS: HEPARIN SOD (PORCINE) 5000 UNITS/ML VIAL SQ SCH ×4 (08:00→23:29)
[2018-09-25] MEDS: PANTOPRAZOLE 40MG INJ (PROTONIX) (C9113) IV SCH (09:37)
[2018-09-25] MEDS: SENOKOT S TAB PO SCH ×2 (09:38→20:57)
--- NOTE | 2018-09-25 09:45 | ROOPDOC ---
[facility] Report Of Operation Report of Operation DATE OF PROCEDURE: 09/24/18 PREPROCEDURE DIAGNOSES: sigmoid colon adenocarcinoma. POSTPROCEDURE DIAGNOSES: same. PROCEDURE: Robotic Assisted Laparoscopic Sigmoid Colectomy. SURGEON: Manuel Lanier MD FILM ARCHIVIST: Leighton Roth DO, Irma Allen, TRIM CREW SUPERVISOR Mrs. Allen assisted me for the most part during the robotic laparoscopic dissection pending the instruments and the robotic tower allowing us at the surgeon's console. Dr. Roth came in towards the end of the procedure assisting me with the bowel anastomosis by handling the stapler transrectally, performing rigid proctoscopy to test the anastomosis and likewise on my request performing a flexible sigmoidoscopy to look at the health of the anastomosis ANESTHESIA: General Anesthesia. ESTIMATED BLOOD LOSS: Approximately 50 mL. COMPLICATIONS: none. REMARKS: . PROCEDURE NOTE: bulky tumor in sigmoid colon, floppy sigmoid, 29 EEA anastomosis, tested under water with rigd proctoscope and also flexible sigmoidoscopy done to visualize anastomosis. On intubation, anesthesia tried placing 6.5 ETT easily, then replaced it with 7.5 ETT easily.. DESCRIPTION OF PROCEDURE: Patient was given a dose of Levaquin 500 mg IV and metronidazole 500 mg IV for prophylactic antibiotic. She was given a dose of heparin 5000 units subcutaneously for DVT prophylaxis and an dose of Entereg 12 mg by mouth 4 postop nausea/ileus prevention. She had a bowel prep with oral antibiotics the night prior. She is brought to the operating room, placed initially supine on the table. Sequential Compression boots placed on both lower extremities for DVT prophylaxis. General endotracheal anesthesia started. Given the history of tracheostomy tracheal stenosis this was briefly discussed with anesthesia. She was also seen by ENT for nasolaryngoscopy to evaluate adequacy of the tracheal lumen for intubation. Initially a 6.5 Mosotho ETT was placed easily which was replaced with a 7.5 Mosotho endotracheal tube. A Simmons catheter placed for urine output monitoring. She was placed in Jose stirrups in the lithotomy position with pressure points padded. Both arms were tucked on her side again with questioning for the pressure points. Her abdomen and perineum was then prepped and draped widely in usual sterile fashion. We paused for a surgical timeout using both pre-incision safety checklist to verify correct patient, procedure site and additional clinical information prior to beginning the procedure. Entry into the abdomen was obtained by creating a small incision over the patient's left upper quadrant area. A Veress needle was introduced in a controlled fashion. Intra-abdominal placement confirmed with saline drop technique. CO2 insufflation started to pressure of 15 mmHg. Using the same incision an 8 mm robotic trocar was placed under direct vision of a 5 mm laparoscope. The insertion site was inspected for bleeding or injury was found. She was then placed on a steep Trendelenburg position to retract the bowels away from the pelvis. Her abdomen sufficiently inflated providing good amount of space for placement of ports. An 8 mm robotic trocar was placed in the patient's supraumbilical area slightly towards the left side. A 12 mm trocar placed on the right lower quadrant area above the anterior superior iliac spine at about the midclavicular level. In between the umbilical port and the right lower quadrant port and another 8 mm port was placed. The da Albertina robotic tower was maneuvered in place from the patient's left side and the trochars were docked onto the robot. We inspected the robotic tower and trocar positioning and found this to be adequate. An 8 mm robotic laparoscope was used throughout the procedure. A nontraumatic bowel grasping forcep was placed on trocar 1. A vessel sealing device placed on trocar 4. Bipolar forceps with bipolar cautery attached was placed on trocar to. The camera was placed on trocar 3. I unscrubbed and went to the surgeon's console to control of the camera and instruments for the procedure. She has a floppy sigmoid colon the site of the sigmoid colon cancer was easily found. This was a bulky tumor located at the midportion of the sigmoid. The rectum does not appear to be involved. She is a long and loose mesentery given her body habitus. I started by freeing up the lateral peritoneal reflection along the upper sigmoid colon going up towards the ascending colon and coming up towards the line of Toldt freeing up as high up as I can with her positioning. The course of the inferior mesenteric artery was then traced by lifting up the mesentery. The peritoneum overlying the area along the course of the sigmoidal arteries were opened up distal and proximal to the course of the artery. A medial to lateral dissection was performed circumferentially dissecting around the sigmoidal artery as I up as I can. The ureter was easily identified along its usual course and dissection was performed above the course of the ureter. Using the robotic 45 mm stapler with a vascular load the inferior mesenteric artery was ligated. I proceeded opening up the peritoneum from the sacral promontory down towards the rectum. Again a medial to lateral dissection was performed in the course of the ureter was identified. I dissected down to the start of the rectum which was about roughly 5-6 cm away from the bulky tumor. A mesenteric window was created medial to lateral. Once an adequate window was created the sigmoid colon was transected at the level of the upper rectum using the same 45 linear stapler with a green load. 3 firings of the stapler was used. The lateral attachments were then freed up going cephalad to the previous dissection of the sigmoid colon. The whole of the sigmoid colon was retracted away from the pelvis and I continued on the medial to lateral dissection to free up the descending colon. I only needed to dissect up towards the splenic flexure and did not need to fully free up the splenic flexure as the colon was able to drop down to the level of the rectum and stay there without any undue tension. At this point I ended the robotic part of the procedure. The robotic trochars were undocked. Dr. Roth assisted me and this part of the procedure. I made a transverse skin incision around the right lower quadrant 12 mm abdominal trocar down to the pelvis and dissected the muscles surrounding it and created about a 4 cm fascial opening. A Mobius wound retractor was placed. The sigmoid colon was delivered out of the abdomen. Bowel clamps were placed at the area of transection this was divided with a scalpel. EEA sizers were used and the seems to be able to adequately accommodate a 29 mm EEA stapler. Due to the stapler short stitch at the moment he only had a couple (28 mm stapler which I used. A pursestring using 2-0 Prolene was used to secure the anvil of the EEA stapler at the end of the descending colon stump. The bulky adipose tissue and epiploic appendages were dissected away from the staple line. The descending colon stump was then replaced back in the abdomen. We changed gowns and gloves and remove the wound retractor and close our fascial opening with 1 Vicryl in a mattress fashion. Pneumoperitoneum was resumed and the used the 5 mm laparoscope for rest of the procedure. The small bowel where retracted away from the pelvis and the descending colon/sigmoid colon stump located in its course straightened up as he goes to the pelvis. Dr. Roth came down and introduced the EEA sizers transrectally and following this the EEA stapler transrectally. There seems to be a slight floppiness and maybe even redundancy of the rectum anteriorly. Was able to maneuver beyond the area deployed the spike anteriorly. The stapler and anvil was assembled together and fired. The stapler was retrieved and 2 complete donuts were identified though there was some redundant colon tissue distally. The anastomosis was tested under water using the rigid proctoscope there was no leak identified. Due to the presence of redundant colonic tissue I requested Dr. Roth to perform a flexible sigmoidoscopy. We were able to visualize the anastomosis the seems healthy and intact and tested the anastomosis under water and no leak was again identified. There was no mucosal defect or injury that we could identify to explain the extra colonic tissue. My guess will be part of the posterior wall was lifted up with the stapler and incorporated in the anastomosis which seems to hold adequately in place. The sigmoidoscope was then removed the irrigation suctioned off. I surveyed the abdomen for any signs of injury or other inadvertent findings. I placed a Tisseel fibrin glue at the anastomosis and then left a 19 Cliff drain coming off from the port sites guided towards the anastomosis but not directly contacting it. The abdomen was then deflated all the ports were removed. All skin incisions were closed with 4-0 Monocryl in a running fashion. I placed Exparel the subcutaneous tissue around the port sites and skin incisions. She tolerated the procedure well. She was promptly awakened, extubated and brought to the recovery room stable. All counts of sponges and instruments were verified correct. MANUEL ALNIER MD September 25, 2018 08:38
--- NOTE | 2018-09-25 11:08 | IPNPDOC ---
Subjective General Date/Time Seen The patient was seen on 09/25/18 at 10:58. Subject Chief Complaint/History The patient is a 53-year-old female admitted with a reason for visit of Sidmoid Colon Cancer. Current Medications Current Medications Current Medications Acetaminophen/ Hydrocodone Bitart (Harrells, Anexsia 5/325) 1 tab ASDIRECTED PRN PO MILD/MODERATE PAIN (PS 1-7); Start 09/24/18 at 12:15; Stop 09/24/18 at 13:15; Status DC Albuterol Sulfate (Proventil, Ventolin Hfa) 2 puff Q4H PRN INH SHORTNESS OF BREATH; Start 09/24/18 at 11:15 Enoxaparin Sodium (Lovenox) 50 mg BID SC ; Start 09/24/18 at 23:30; Status Cancel Fentanyl Citrate (Sublimaze) 25 mcg Q5MP PRN IV MODERATE PAIN (PS 4-7) Last administered on 09/24/18at 11:55; Start 09/24/18 at 12:15; Stop 09/24/18 at 12:49; Status DC Heparin Sodium (Porcine) (Heparin) 5,000 units Q8H SC Last administered on 09/24/18at 14:58; Start 09/24/18 at 14:00; Stop 09/24/18 at 23:26; Status DC Heparin Sodium (Porcine) (Heparin) 5,000 units Q8H SQ ; Start 09/25/18 at 00:00 Ipratropium Windom (Atrovent 0.02%) 0.5 mg Q4H PRN INH SHORTNESS OF BREATH; Start 09/24/18 at 11:15 Ketorolac Tromethamine (ToRADol) 30 mg Q6HP PRN IV MILD/MODERATE PAIN (PS 1-7) Last administered on 09/24/18at 21:01; Start 09/24/18 at 11:15; Stop 09/29/18 at 11:14 Lactated Ringer's 1,000 ml @ 100 mls/hr Q10H IV Last administered on 09/24/18at 07:00; Start 09/24/18 at 06:00; Stop 09/24/18 at 12:09; Status DC Lactated Ringer's 1,000 ml @ 100 mls/hr Q10H IV Last administered on 09/25/18at 00:26; Start 09/24/18 at 11:14 Lactated Ringer's 1,000 ml @ 100 mls/hr Q10H IV ; Start 09/24/18 at 12:15; Stop 09/24/18 at 13:15; Status DC Morphine Sulfate (Morphine Sulfate Inj) 2 mg Q5M PRN IV MODERATE/SEVERE PAIN (PS 5-10) Last administered on 09/24/18at 12:49; Start 09/24/18 at 12:15; Stop 09/24/18 at 13:15; Status DC Morphine Sulfate (Morphine Sulfate Inj) 4 mg Q2HP PRN IV SEVERE PAIN (PS 8-10); Start 09/24/18 at 11:15 Ondansetron HCl (ZOFRAN INJection) 4 mg Q4HP PRN IV NAUSEA OR VOMITING Last administered on 09/24/18at 11:37; Start 09/24/18 at 12:15; Stop 09/24/18 at 13:15; Status DC Ondansetron HCl (ZOFRAN INJection) 4 mg Q6HP PRN IV NAUSEA OR VOMITING; Start 09/24/18 at 11:15 Oxycodone/ Acetaminophen (Percocet 5mg/ 325mg Tablet) 1 tab Q4HP PRN PO MODERATE PAIN (PS 5-7); Start 09/24/18 at 11:15 Oxycodone/ Acetaminophen (Percocet 5mg/ 325mg Tablet) 2 tab Q6HP PRN PO SEVERE PAIN (PS 8-10); Start 09/24/18 at 11:15 Pantoprazole Sodium (Protonix) 40 mg DAILY IV Last administered on 09/25/18at 09:37; Start 09/25/18 at 09:00 Rosuvastatin Calcium (Crestor) 40 mg DAILY PO ; Start 09/24/18 at 23:30; Status Cancel Senna/Docusate Sodium (Senokot S) 1 tab BID PO Last administered on 09/25/18at 09:38; Start 09/24/18 at 21:00 Allergies Coded Allergies: Sulfa (Sulfonamide Antibiotics) (Verified Allergy, Unknown, sob, 09/19/18) Penicillins (Verified Adverse Reaction, Unknown, causes infections, 09/19/18) codeine (Verified Adverse Reaction, Unknown, severe nausea and vomiting, 09/19/18) Objective Physical Examination Examination GENERAL APPEARANCE:looks comfortable. SKIN: Warm and moist. NECK: previous trach, healed, no JV distention. LUNGS: Clear to auscultation bilaterally. No wheezing appreciated. HEART: No chest wall abnormalities. Regular rate and rhythm with no murmurs appreciated. ABDOMEN: Abdomen is minimally distended, soft, port site incisions dry, lower rlq incision dressing dry. rlq drain - serosangeunous. Nontender on palpation. EXTREMITIES: no edema. Vital Signs Vital Signs Date Time Temp Pulse Resp B/P (MAP) Pulse Ox O2 Delivery O2 Flow Rate FiO2 09/25/18 08:00 98.4 98 18 110/62 (78) 100 2.0 09/25/18 04:00 96 I&Os I&O- Last 24 Hours up to 6 AM 09/25/18 06:00 Intake Total 2420 ml Output Total 725 ml Balance 1695 ml Laboratory Data Labs 24H Laboratory Tests 2 09/25/18 05:25: Immature Granulocyte % (Auto) 0.2, White Blood Count 6.2, Red Blood Count 3.26L, Hemoglobin 11.0L, Hematocrit 32.2L, Mean Corpuscular Volume 98.8H, Mean Corpuscular Hemoglobin 33.7H, Mean Corpuscular Hemoglobin Concent 34.2, Red Cell Distribution Width 13.9, Platelet Count 180, Neutrophils (%) (Auto) 67.7H, Lymphocytes (%) (Auto) 22.2L, Monocytes (%) (Auto) 9.2H, Eosinophils (%) (Auto) 0.5, Basophils (%) (Auto) 0.2, Neutrophils # (Auto) 4.2, Lymphocytes # (Auto) 1.4L, Monocytes # (Auto) 0.6, Eosinophils # (Auto) 0.0, Basophils # (Auto) 0.0, Nucleated Red Blood Cells % (auto) 0.0, Anion Gap 7L, Glomerular Filtration Rate 54.2, Blood Urea Nitrogen 14, Creatinine 1.12, Sodium Level 136, Potassium Level 4.3#, Chloride Level 103, Carbon Dioxide Level 26, Calcium Level 8.2L CBC/BMP Laboratory Tests 09/25/18 05:25 Red Blood Count 3.26 L, Mean Corpuscular Volume 98.8 H, Mean Corpuscular Hemoglobin 33.7 H, Mean Corpuscular Hemoglobin Concent 34.2, Red Cell Distribution Width 13.9, Neutrophils (%) (Auto) 67.7 H, Lymphocytes (%) (Auto) 22.2 L, Monocytes (%) (Auto) 9.2 H, Eosinophils (%) (Auto) 0.5, Basophils (%) (Auto) 0.2, Neutrophils # (Auto) 4.2, Lymphocytes # (Auto) 1.4 L, Monocytes # (Auto) 0.6, Eosinophils # (Auto) 0.0, Basophils # (Auto) 0.0, Calcium Level 8.2 L Impression POD1 robotic Assisted Laparoscopic Sigmoid Colon Resection COPD Emphysema tracheal stenosis Path pending Doing very well, moving flatus not ambulating yet PLAN: advance diet move to med-surg floor ambulate to hallways d/c guy catheter dvt prophylaxis Plan / VTE VTE Prophylaxis Ordered?: Yes Plan / Urinary Catheter Urinary Catheter: D/C MARCELO Moses MD September 25, 2018 11:08
[2018-09-25 15:22] VITALS: BP 120/64
[2018-09-25 22:00] VITALS: BP 120/64
[2018-09-26 06:00] VITALS: BP 130/65
[2018-09-26 06:32] LABS: BASO % 0.8 % (0.0-1.0); EOS # 0.1 10^3/uL (0.0-0.50); EOS % 1.5 % (0.0-3.0); HEMATOCRIT 35.8 % (36.0-47.0); HEMOGLOBIN 12.1 g/dl (12.0-15.5); LYMPH # 1.3 10^3/uL (1.5-4.5); LYMPH % 26.6 % (24.0-44.0); MEAN CORPUSCULAR HEMOGLOBIN 33.5 pg (27.0-33.0); MEAN CORPUSCULAR HGB CONC 33.8 g/dl (32.0-36.5); MEAN CORPUSCULAR VOLUME 99.2 fl (80.0-96.0); MONO # 0.3 10^3/uL (0.0-0.8); MONO % 6.9 % (0.0-5.0); NEUTROPHILS # 3.1 10^3/uL (1.8-7.7); NEUTROPHILS % 63.8 % (36.0-66.0); PLATELET COUNT, AUTOMATED 202 10^3/uL (150-450); RED BLOOD COUNT 3.61 10^6/uL (4.00-5.40); WHITE BLOOD COUNT 4.8 10^3/uL (4.0-10.0)
[2018-09-26 06:54] LABS: BLOOD UREA NITROGEN 9 MG/DL (7-18); CALCIUM LEVEL 8.7 MG/DL (8.5-10.1); CARBON DIOXIDE LEVEL 30 MEQ/L (21-32); CHLORIDE LEVEL 109 MEQ/L (98-107); CREATININE FOR GFR 0.86 MG/DL (0.55-1.30); GLOMERULAR FILTRATION RATE > 60.0 (>51); GLUCOSE, FASTING 80 MG/DL (70-100); POTASSIUM SERUM 3.8 MEQ/L (3.5-5.1); SODIUM LEVEL 142 MEQ/L (136-145)
[2018-09-26] MEDS: HEPARIN SOD (PORCINE) 5000 UNITS/ML VIAL SQ SCH (08:00)
[2018-09-26] MEDS: PANTOPRAZOLE 40MG INJ (PROTONIX) (C9113) IV SCH (08:59)
[2018-09-26] MEDS: SENOKOT S TAB PO SCH (08:59)
[2018-09-26] MEDS ORDERED: PERCOCET PO (10:19)
--- NOTE | 2018-10-02 03:32 | DS.PDOC ---
Discharge Summary General Date of Admission September 24, 2018 at 05:44 Date of Discharge 09/26/2018 Attending Physician: MARCELO BOLDEN MD Discharge Summary PROCEDURES PERFORMED DURING STAY: Robotic-assisted laparoscopic sigmoid colectomy with proximal colic anastomosis. ADMITTING DIAGNOSES: 1. Sigmoid colon adenocarcinoma 2. Vocal cord cancer status post radiation 3. Previous tracheostomy tracheal stenosis 4. COPD 5. History of sleep apnea. DISCHARGE DIAGNOSES: 1. Sigmoid colon adenocarcinoma status post sigmoid colon resection 2. Vocal cord cancer status post radiation 3. Previous tracheostomy tracheal stenosis 4. COPD 5. History of sleep apnea. COMPLICATIONS/CHIEF COMPLAINT: Sidmoid Colon Cancer. HISTORY OF PRESENT ILLNESS: Patient is brought in for sigmoid colon resection for previously identified adenocarcinoma on her mid sigmoid colon roughly about 35 cm from the anal verge. A copy of my office note has been provided as part of the history of present illness. HOSPITAL COURSE: Patient underwent robotic-assisted laparoscopic sigmoid colectomy. She did well intraoperatively. There was initial concern regarding her tracheal stenosis whet her we can successfully intubated and went intubated successfully extubated. Anesthesia was able to successfully extubate within she was brought to the PACU. She had some mild wheezing initially postoperatively which was relieved with nebulization. She was admitted at the progressive care unit for monitoring and was provided oxygen for her COPD and her sleep apnea. She is not using her CPAP machine which she could not tolerate. Her breathing continued to improve. I started her on clear liquids the night of the surgery. The following morning she reports she is passing flatus and later on during the day was able to move some small stools. She was advanced to a regular diet. She was subsequently moved to the regular floors. She continued to do well postoperatively and was able to tolerate regular diet and wishes to go home on postoperative day 2. Patient was not requiring any doses of IV morphine and was just using Percocets per stopping control adequately and she was ambulating to the hallways. She is not showing any shortness of breath. So she was subsequently discharged. Her pathology was not available at time of discharge. DISCHARGE MEDICATIONS: Please see below. ALLERGIES: Please see below. PHYSICAL EXAMINATION ON DISCHARGE: VITAL SIGNS: Please see below. GENERAL: Patient looks very comfortable HEENT: Mild pale palpebral conjunctiva. Lips and mucosa are moist. No facial asymmetry NECK: Supple, site of previous tracheostomy which is closed. Prominent sternocleidomastoid muscle. No jugular venous distention CARDIOVASCULAR EXAMINATION: Regular heart rate and rhythm RESPIRATORY EXAMINATION: Clear breath sounds auscultation bilaterally, no wheezing ABDOMINAL EXAMINATION: Flat, soft, nondistended. Port site incisions are covered with glue. The extraction site in the right lower quadrant were covered with dry gauze which is clean, dry and intact. She is nontender on palpation EXTREMITIES: Extremities edema SKIN: No skin rashes, skin breakdown NEUROLOGICAL EXAMINATION: Awake, alert, oriented LABORATORY DATA: Please see below. IMAGING: None during this stay PROGNOSIS: Good, pathology is pending ACTIVITY: Light activity until reevaluated in clinic in 2 weeks. DIET: Low residue diet. Advance diet as tolerated DISCHARGE PLAN: Patient is to be discharged home. Follow-up with me was arranged. DISPOSITION: 01 Home, Self-Care. DISCHARGE INSTRUCTIONS: 1. As above. 2. Call for earlier appointment with abdominal pain, nausea, vomiting, fever, wound problems ITEMS TO FOLLOWUP ON ON OUTPATIENT: 1. Final pathology result. DISCHARGE CONDITION: Stable. TIME SPENT ON DISCHARGE: Greater than 30 minutes. Vital Signs/I&Os Vital Signs Date Time Temp Pulse Resp B/P (MAP) Pulse Ox O2 Delivery O2 Flow Rate FiO2 09/26/18 06:00 97.6 63 18 130/65 (86) 100 Discharge Medications Scheduled PRN Albuterol Sulfate (Ventolin Hfa) 108 Mcg/Act Aer, 2 PUFFS INH Q4H PRN for SHORTNESS OF BREATH, (Reported) Ipratropium Newport (Ipratropium Newport) 0.5 Mg/2.5 Ml Soln, 0.5 MG INH Q4H PRN for SHORTNESS OF BREATH, (Reported) Oxycodone/Acetaminophen (Oxycodone-Acetaminophen 5-325) 1 Each Tablet, 1-2 TAB PO Q6HP PRN for MODERATE PAIN (PS 5-7) Allergies Coded Allergies: Sulfa (Sulfonamide Antibiotics) (Verified Allergy, Unknown, sob, 09/19/18) Penicillins (Verified Adverse Reaction, Unknown, causes infections, 09/19/18) codeine (Verified Adverse Reaction, Unknown, severe nausea and vomiting, 09/19/18) MARCELO BOLDEN MD October 02, 2018 03:32
== END 2018-09-26 11:30 | disposition home or self-care (01) | DRG 330 ==
LOC: M OR 05:44 → M PCU 13:15 → M MSPAV 09-25 15:22
PROVIDERS: ADMIT Surgery; ATTEND Surgery
PROC: 8E0W4CZ Robotic Assisted Procedure of Trunk Region, Percutaneous Endoscopic Approach (ICD-10-PCS; 2018-09-24)
PROC: 0DBN4ZZ Excision of Sigmoid Colon, Percutaneous Endoscopic Approach (ICD-10-PCS; principal; 2018-09-24 07:30)
DX: C18.7 Malignant neoplasm of sigmoid colon (principal); Z68.1 Body mass index [BMI] 19.9 or less, adult; J44.9 Chronic obstructive pulmonary disease, unspecified; J39.8 Other specified diseases of upper respiratory tract; G47.30 Sleep apnea, unspecified; Z93.0 Tracheostomy status; Z85.89 Personal history of malignant neoplasm of other organs and systems; Z88.2 Allergy status to sulfonamides; Z88.5 Allergy status to narcotic agent; Z88.0 Allergy status to penicillin; Z79.899 Other long term (current) drug therapy; F17.200 Nicotine dependence, unspecified, uncomplicated

== ENCOUNTER → 2018-10-30 | Outpatient (CLI) | payer MEDICARE, MEDICAID ==
[~2018-10-30] MED LIST changes: +PERCOCET PO; +PROHANCE 279.3MG/ML 15ML VIAL (A9576) As Ordered ONE
--- NOTE | 2018-10-30 15:58 | REP ---
MRI abdomen and liver. History: Evaluate liver lesion. Comparison CT study is from August 22, 2018. Weight loss. The gadolinium enhancement dose is 9 mL of intravenous ProHance. MR imaging T1 and T2-weighted sequences include coronal and axial imaging planes. Spin-echo, fast spin echo, gradient echo, diffusion, and dynamically acquired sequential post contrast images are acquired. MRI findings: T2-weighted scans demonstrate a 1.2 cm T2 hyperintense lesion in the posterior segment of the right lobe of the liver high near the dome of the diaphragm in a subcapsular orientation. This shows low T1 signal intensity. No other focal liver lesion is appreciated. On dynamically acquired sequential post contrast images, the right hepatic lobe lesion demonstrates initial peripheral enhancement with gradual filling consistent with a benign hemangioma. No other area of abnormal enhancement is appreciated. No pancreatic or splenic lesion is seen. The kidneys enhance symmetrically. Exam is otherwise unremarkable. Impression: 1.2 cm benign hemangioma of the right lobe of the liver. Electronically Signed by Joaquin Mathew MD 10/30/2018 04:35 P
== END ==
LOC: M RAD 11:30
PROVIDERS: ATTEND Internal Medicine Gastroenterology
DX: D18.03 Hemangioma of intra-abdominal structures (principal); R63.4 Abnormal weight loss
CPT/HCPCS: 74183; A9576

== ENCOUNTER 2019-05-23 06:43 | Day surgery (SDC) | payer MEDICARE, MEDICAID ==
[~2019-05-23] VITALS: Ht 167.6 cm; Wt 46.3 kg
[~2019-05-23 06:43] MED LIST changes: -ALL10TAB28 PO; +ALL10TAB29 PO; -AZIT500T2 PO; +AZIT500T5 PO; -OMEP40CA2; -OMEP40CA2 PO; +OMEP40CA97; +OMEP40CA97 PO; -PROHANCE 279.3MG/ML 15ML VIAL (A9576) As Ordered ONE
[2019-05-23] MEDS ORDERED: NS 1,000 ML IV ONE (07:00)
[2019-05-23] MEDS ORDERED: propofoL 200 MG/20 ML VIAL As Ordered ONE ×2 (08:30→08:39)
--- NOTE | 2019-05-23 08:58 | ROOR ---
Patient Name: Anne Marie Laureano Procedure Date: 05/23/2019 8:01 AM Date of : 1965 Age: 54 Room: [facility] [place] Gender: Female Note Status: Finalized Procedure: Colonoscopy Indications: High risk colon cancer surveillance: Personal history of colon cancer Providers: Ryan RODRIGUEZ MD Referring MD: FROY Donis Requesting Provider: Medicines: Monitored Anesthesia Care Complications: No immediate complications. Procedure: Pre-Anesthesia Assessment: - The heart rate, respiratory rate, oxygen saturations, blood pressure, adequacy of pulmonary ventilation, and response to care were monitored throughout the procedure. The Colonoscope was introduced through the anus and advanced to the cecum, identified by appendiceal orifice and ileocecal valve. The colonoscopy was performed with difficulty due to the patient's agitation. The patient tolerated the procedure well. The quality of the bowel preparation was adequate. Findings: The perianal and digital rectal examinations were normal. A frond-like/villous non-obstructing medium-sized mass was found at the splenic flexure. The mass was non-circumferential. The mass measured three cm in length. This was biopsied with a cold forceps for histology. Area was tattooed with an injection of Aislinn ink. Six sessile polyps were found in the ascending colon and cecum. The polyps were 8 to 20 mm in size. These polyps were removed with a piecemeal technique using a hot snare. Resection and retrieval were complete. Five semi-sessile polyps were found in the sigmoid colon and descending colon. The polyps were 7 to 10 mm in size. Polyp resection was incomplete due to the patient's condition which required stopping the procedure. There was evidence of a prior end-to-end colo-colonic anastomosis in the sigmoid colon. This was patent and was characterized by healthy appearing mucosa. Impression: - 3 cm polypoid tumor at the splenic flexure. This was not removed. Biopsied. Area was tattooed with an injection of Aislinn ink. - Six 8 to 20 mm polyps in the ascending colon and in the cecum, removed piecemeal using a hot snare. Resected and retrieved. - Five 7 to 10 mm polyps in the descending colon ands sigmoid colon and in the descending colon. (Due to severe intractable coughing spells and poor visualisation, these polyps were not removed today). - Patent end-to-end colo-colonic anastomosis, characterized by healthy appearing mucosa. Recommendation: - Refer to a surgeon at appointment to be scheduled. (Splenic flexure lesion is not endoscopically removable) - Repeat colonoscopy (date not yet determined) for retreatment). - Return to my office in 2 weeks. - To discuss todays findings, my office will call you in the next few days to schedule a follow up appointment. Ryan Rodriguez MD Ryan RODRIGUEZ MD 05/23/2019 8:58:08 AM Electronically signed by Ryan RODRIGUEZ MD Number of Addenda: 0 Note Initiated On: 05/23/2019 8:01 AM Estimated Blood Loss: Estimated blood loss: none.
[2019-05-23] MEDS ORDERED: LEVALBUTEROL 1.25 MG/0.5 ML CONCENTRATE NEB As Ordered ONE (09:00)
[2019-05-23] MEDS ORDERED: LEVALBUTEROL 1.25 MG/0.5 ML CONCENTRATE NEB INH ONE (09:15)
[2019-05-23 09:20] VITALS: BP 118/59
== END 2019-05-23 09:34 | disposition home or self-care (01) ==
LOC: M OPP 06:43
PROVIDERS: ATTEND Internal Medicine Gastroenterology
DX: D49.0 Neoplasm of unspecified behavior of digestive system (principal); D12.2 Benign neoplasm of ascending colon; D12.0 Benign neoplasm of cecum; D12.5 Benign neoplasm of sigmoid colon; D12.4 Benign neoplasm of descending colon; Z98.0 Intestinal bypass and anastomosis status; Z85.038 Personal history of other malignant neoplasm of large intestine; Z09 Encounter for follow-up examination after completed treatment for conditions other than malignant neoplasm; F17.210 Nicotine dependence, cigarettes, uncomplicated; Z79.899 Other long term (current) drug therapy; Z88.0 Allergy status to penicillin; Z88.2 Allergy status to sulfonamides; Z88.5 Allergy status to narcotic agent

== ENCOUNTER 2019-08-01 06:20 | Day surgery (SDC) | payer MEDICARE, MEDICAID ==
[~2019-08-01] VITALS: Ht 167.6 cm; Wt 53.3 kg
[~2019-08-01 06:20] MED LIST changes: +LR 1,000 ML IV ONE; -MONT10TA2; +MONT10TA4
[2019-08-01] MEDS ORDERED: propofoL 200 MG/20 ML VIAL As Ordered ONE ×2 (07:14→08:32)
[2019-08-01] MEDS ORDERED: MIDAZOLAM INJ 2 MG/2 ML VIAL (J2250) As Ordered ONE (07:35)
[2019-08-01] MEDS ORDERED: KETAMINE HCL 200 MG/20 ML VIAL As Ordered ONE (07:35)
[2019-08-01] MEDS ORDERED: fentaNYL 100 MCG/2 ML INJECTION (J3010) As Ordered ONE (07:35)
[2019-08-01] MEDS ORDERED: LIDOCAINE 2% INJ 100 MG/5 ML SDV (FOR ANES.) As Ordered ONE (07:37)
[2019-08-01 09:40] VITALS: BP 151/99
--- NOTE | 2019-08-01 09:52 | ROOR ---
Patient Name: Anne Marie Laureano Procedure Date: 08/01/2019 7:43 AM Date of : 1965 Age: 54 Room: Main OR Gender: Female Note Status: Finalized Procedure: Colonoscopy Indications: Therapeutic procedure for known colon adenoma, Therapeutic procedure for known colon mass Providers: Ryan RODRIGUEZ MD Referring MD: 1. No Referring Physician 1. No Referring Physician, Admin., FROY Donis Requesting Provider: Medicines: Monitored Anesthesia Care Complications: No immediate complications. Procedure: Pre-Anesthesia Assessment: - The heart rate, respiratory rate, oxygen saturations, blood pressure, adequacy of pulmonary ventilation, and response to care were monitored throughout the procedure. The Colonoscope was introduced through the anus and advanced to the cecum, identified by appendiceal orifice and ileocecal valve. The colonoscopy was performed without difficulty. The patient tolerated the procedure well. The quality of the bowel preparation was good. Findings: The perianal and digital rectal examinations were normal. A tattoo was seen at the splenic flexure. The tattoo site appeared abnormal. A frond-like/villous non-obstructing medium-sized mass was found at the splenic flexure. The mass measured three cm in length. The polyp was removed with a lift and cut technique using a hot snare and The polyp was removed with a piecemeal technique using a hot snare. Polyp resection was incomplete. The resected tissue was retrieved. Four sessile polyps were found in the descending colon and splenic flexure. The polyps were 3 to 5 mm in size. These polyps were removed with a cold snare. Resection and retrieval were complete. There was evidence of a prior end-to-end colo-colonic anastomosis in the sigmoid colon. This was patent and was characterized by healthy appearing mucosa. Impression: - A tattoo was seen at the splenic flexure. The tattoo site appeared abnormal. - Likely benign tumor at the splenic flexure. The bulk of the lesion/tissue was removed. (likely has residual polyp). - Four 3 to 5 mm polyps in the descending colon and at the splenic flexure, removed with a cold snare. Resected and retrieved. - Patent end-to-end colo-colonic anastomosis, characterized by healthy appearing mucosa. Recommendation: - No aspirin, ibuprofen, naproxen, or other non-steroidal anti-inflammatory drugs for 2 weeks. - Repeat colonoscopy in 4 months for retreatment. Ryan Rodriguez MD Ryan RODRIGUEZ MD 08/01/2019 9:51:48 AM Electronically signed by Ryan RODRIGUEZ MD Number of Addenda: 0 Note Initiated On: 08/01/2019 7:43 AM Estimated Blood Loss: Estimated blood loss: none.
== END 2019-08-01 10:16 | disposition home or self-care (01) ==
LOC: M SDC 06:20
PROVIDERS: ATTEND Internal Medicine Gastroenterology
DX: D12.3 Benign neoplasm of transverse colon (principal); D12.4 Benign neoplasm of descending colon; Z90.49 Acquired absence of other specified parts of digestive tract; I10 Essential (primary) hypertension; M54.9 Dorsalgia, unspecified; J44.9 Chronic obstructive pulmonary disease, unspecified; G43.909 Migraine, unspecified, not intractable, without status migrainosus; Z87.09 Personal history of other diseases of the respiratory system; L40.9 Psoriasis, unspecified; G47.30 Sleep apnea, unspecified; Z92.3 Personal history of irradiation; Z85.21 Personal history of malignant neoplasm of larynx; Z88.0 Allergy status to penicillin; Z88.5 Allergy status to narcotic agent; Z88.2 Allergy status to sulfonamides; Z79.899 Other long term (current) drug therapy
CPT/HCPCS: 45385; 88305; J2250; J3010

== ENCOUNTER → 2020-06-22 | Outpatient (CLI) | payer MEDICARE, MEDICAID ==
[~2020-06-22] MED LIST changes: -ALL10TAB29 PO; +CETI-24 PO; +GABA-282; +GABA-282 PO; -GABA-843; -GABA-843 PO; +LISI10TA22; +LISI10TA22 PO; -LISI10TA4; -LISI10TA4 PO; -LR 1,000 ML IV ONE; +MONT10TA10; -MONT10TA4
--- NOTE | 2020-06-23 07:04 | REP ---
INDICATION: NICOTINE DEPENDENCE, LUNG CA SCREENING COMPARISON: 02/24/2017 TECHNIQUE: Axial noncontrast images from the thoracic inlet to the upper abdomen using low-dose lung screening technique (LDCT). FINDINGS: Lung alvarado demonstrate moderate emphysematous disease and sequelae of granulomatous disease including calcified lymph nodes and calcified granuloma. No consolidation, suspicious nodule, or mass lesion. No effusion. No pneumothorax. Tracheobronchial tree is patent. Stable atherosclerotic changes to the thoracic aorta and coronary arteries noted without cardiomegaly or pericardial effusion. IMPRESSION: Lung-RADS category 2. Management recommendations include annual low-dose CT surveillance. <Electronically signed by Tj Yip > 06/23/20 0700
== END ==
LOC: M RAD 11:21
PROVIDERS: ATTEND Internal Medicine Pulmonary Disease
DX: F17.218 Nicotine dependence, cigarettes, with other nicotine-induced disorders (principal)

== ENCOUNTER → 2020-07-25 | Outpatient (CLI) | payer MEDICARE, MEDICAID | LOC: M LABSMTC 09:14 | PROVIDERS: ATTEND Anesthesiology | DX: Z01.812 Encounter for preprocedural laboratory examination (principal); Z20.828 Contact with and (suspected) exposure to other viral communicable diseases ==

== ENCOUNTER → 2020-07-28 | Outpatient (CLI) | payer MEDICARE, MEDICAID | LOC: M LABSMTC 13:22 | PROVIDERS: ATTEND Anesthesiology | DX: Z01.812 Encounter for preprocedural laboratory examination (principal); Z20.828 Contact with and (suspected) exposure to other viral communicable diseases ==

== ENCOUNTER 2020-07-30 09:44 | Day surgery (SDC) | payer MEDICARE, MEDICAID ==
[~2020-07-30] VITALS: Ht 167.6 cm; Wt 54.0 kg
[~2020-07-30 09:44] MED LIST changes: +LIDOCAINE 2% 100MG/5ML SDV (FOR ANES.) As Ordered ONE; +NS 1,000 ML IV ONE; +propofoL 200 MG/20 ML VIAL As Ordered ONE
[2020-07-30] MEDS ORDERED: propofoL 200 MG/20 ML VIAL As Ordered ONE ×2 (11:15→11:43)
[2020-07-30] MEDS ORDERED: LIDOCAINE 2% 100MG/5ML SDV (FOR ANES.) As Ordered ONE (11:17)
--- NOTE | 2020-07-30 12:03 | ROOR ---
Patient Name: Anne Marie Laureano Procedure Date: 07/30/2020 11:10 AM Date of : 1965 Age: 55 Room: [facility] Gender: Female Note Status: Finalized Procedure: Colonoscopy Indications: Surveillance: Piecemeal removal of large sessile adenoma last colonoscopy (< 3 yrs), High risk colon cancer surveillance: Personal history of colon cancer Providers: Ryan RODRIGUEZ MD Referring MD: Ciro Hodge Requesting Provider: Medicines: Monitored Anesthesia Care Complications: No immediate complications. Procedure: Pre-Anesthesia Assessment: - The heart rate, respiratory rate, oxygen saturations, blood pressure, adequacy of pulmonary ventilation, and response to care were monitored throughout the procedure. The Colonoscope was introduced through the anus and advanced to the cecum, identified by appendiceal orifice and ileocecal valve. The colonoscopy was performed without difficulty. The patient tolerated the procedure well. The quality of the bowel preparation was good. Findings: The perianal and digital rectal examinations were normal. A 10 mm post polypectomy scar was found at the splenic flexure. There was residual polyp tissue. The polyp was removed with a piecemeal technique using a hot snare. Polyp resection was incomplete. The resected tissue was retrieved. Coagulation for destruction of remaining portion of lesion using argon plasma at 0.8 liters/minute and 25 mckeon was successful. There was evidence of a prior end-to-end colo-colonic anastomosis in the recto-sigmoid colon. This was characterized by healthy appearing mucosa. Internal hemorrhoids were found during retroflexion. The hemorrhoids were small. Impression: - Post-polypectomy scar at the splenic flexure with residual polyp tissue seen at 2 cm proximal to a large tattoo. Polyp tissue was removed with hot snare, and treated with argon plasma coagulation (APC) to destroy any remaining polypoi tissue. - End-to-end colo-colonic recto sigmoid anastomosis, characterized by healthy appearing mucosa. - Internal hemorrhoids. - The exam was otherwise normal. Recommendation: - Repeat colonoscopy in 2 years for surveillance. Procedure Code(s): --- Professional --- 03826, Colonoscopy, flexible; with removal of tumor(s), polyp(s), or other lesion(s) by snare technique Diagnosis Code(s): --- Professional --- K64.8, Other hemorrhoids Z98.0, Intestinal bypass and anastomosis status Z98.890, Other specified postprocedural states Z85.038, Personal history of other malignant neoplasm of large intestine Z86.010, Personal history of colonic polyps CPT copyright 2019 [employer]. All rights reserved. The codes documented in this report are preliminary and upon social security specialist review may be revised to meet current compliance requirements. Ryan Rodriguez MD Ryan RODRIGUEZ MD 07/30/2020 12:02:51 PM Electronically signed by Ryan RODRIGUEZ MD Number of Addenda: 0 Note Initiated On: 07/30/2020 11:10 AM Estimated Blood Loss: Estimated blood loss: none.
[2020-07-30 12:15] VITALS: BP 122/80
== END 2020-07-30 12:28 | disposition home or self-care (01) ==
LOC: M OPP 09:44
PROVIDERS: ATTEND Internal Medicine Gastroenterology
DX: D12.5 Benign neoplasm of sigmoid colon (principal); Z86.010 Personal history of colon polyps; Z85.038 Personal history of other malignant neoplasm of large intestine; Z98.890 Other specified postprocedural states; Z98.0 Intestinal bypass and anastomosis status; K64.8 Other hemorrhoids; F17.210 Nicotine dependence, cigarettes, uncomplicated; Z79.899 Other long term (current) drug therapy; Z88.0 Allergy status to penicillin; Z88.2 Allergy status to sulfonamides; Z88.5 Allergy status to narcotic agent; Z91.018 Allergy to other foods; Z08 Encounter for follow-up examination after completed treatment for malignant neoplasm

== ENCOUNTER → 2020-12-03 | Outpatient (CLI) | payer MEDICARE, MEDICAID ==
[~2020-12-03] MED LIST changes: -LIDOCAINE 2% 100MG/5ML SDV (FOR ANES.) As Ordered ONE; -NS 1,000 ML IV ONE; +OMEP40CA4; +OMEP40CA4 PO; -OMEP40CA97; -OMEP40CA97 PO; -propofoL 200 MG/20 ML VIAL As Ordered ONE
--- NOTE | 2020-12-03 16:40 | REPMRS ---
Patient History The patient states she has not had a clinical breast exam in over a year. Patient is postmenopausal, has history of colorectal cancer at age 52, and has history of vocal cancer at age 50. Family history of breast cancer at age 50 or over in mother. No Hormone Replacement Therapy Patient states no breast complaints today. Patient has signed MRS History Sheet. Digital Woman Screen Mammo: December 03, 2020 - Exam #: [id number] Bilateral CC and MLO view(s) were taken. Technologist: Lily Hammer, Technologist FINDINGS: The breast tissue is heterogeneously dense. This may lower the sensitivity of mammography. Screening. Digital screening (2D) mammography was performed bilaterally. Additionally, breast tomosynthesis (3D) mammography was perfomed bilaterally in the CC and MLO projections. Today's examination is the initial screening examination. By history, the patient has no complaints of a palpable breast abnormality or other significant breast complaints. The breasts are symmetric in size and shape. Dense heterogenous fibroglandular elements are seen bilaterally to such a degree that the sensitivity of the mammogram in detecting cancer is decreased. There are no masses. There is no internal architectural distortion.Benign appearing calcifications are seen. There are no suspicious microcalcific clusters. Skin thickening or nipple retraction is not present. IMPRESSION: BI-RADS Category 2- Benign Findings. There is no evidence of malignant alteration of the breasts. Followup examination recommended in one year. The Volpara volumetric breast density category is C, the breasts are heterogenously dense which may obscure small masses. This mammogram was read with the assistance of [employer],an FDA approved computer aided detection system for mammography. The lifetime Tyrer-Cuzick score is 9.7 % Due to the density of the breasts or Tyrer Cuzick score of 20% or greater, MRI/whole breast screening ultrasound is warranted. Negative x-ray reports should not delay surgical consultation if a dominant or clinically suspicious mass is present. Not all breast cancers can be identified by mammography. Therefore, we recommend that you continue to perform regular breast self-examination and physical examination and then promptly contact your physician of any concerns or changes. Adenosis and dense breasts may obscure an underlying neoplasm. Assessment: BI-RADS/ACR category 2 mammogram. Benign Findings. Recommendation Routine screening mammogram of both breasts in 1 year. Electronically Signed By: Yan Henley, 12/03/20 1640
== END ==
LOC: M WHC 14:49
PROVIDERS: ATTEND Plastic Surgery Surgery of the Hand
DX: Z12.31 Encounter for screening mammogram for malignant neoplasm of breast (principal); N64.82 Hypoplasia of breast; N64.81 Ptosis of breast

== ENCOUNTER 2021-01-26 09:15 | Emergency (ER) | payer MEDICARE, MEDICAID ==
[~2021-01-26] VITALS: Ht 167.6 cm; Wt 52.6 kg
[2021-01-26] MEDS ORDERED: IPRA0.00 (09:22)
--- NOTE | 2021-01-26 12:09 | REP ---
INDICATION: pain, ? popping in and out COMPARISON: None. TECHNIQUE: Five views right knee. FINDINGS: There is no evidence of acute fracture, dislocation, or intrinsic bone disease.There is minimal narrowing of the medial joint and patellofemoral joint. There may be a small suprapatellar effusion. IMPRESSION: No fracture or dislocation. Possible small suprapatellar effusion. <Electronically signed by Leighton Burns > 01/26/21 [id number]
[2021-01-26] MEDS ORDERED: NAPR-855 PO (12:16)
[2021-01-26 12:30] VITALS: BP 117/68
== END 2021-01-26 12:50 | disposition home or self-care (01) ==
LOC: M ED 09:15
DX: S83.411A Sprain of medial collateral ligament of right knee, initial encounter (principal); X50.9XXA Other and unspecified overexertion or strenuous movements or postures, initial encounter; Y92.9 Unspecified place or not applicable; Y93.9 Activity, unspecified; Y99.9 Unspecified external cause status; F17.200 Nicotine dependence, unspecified, uncomplicated; J44.9 Chronic obstructive pulmonary disease, unspecified; Z88.0 Allergy status to penicillin; Z88.1 Allergy status to other antibiotic agents; Z88.2 Allergy status to sulfonamides; Z88.6 Allergy status to analgesic agent; Z91.018 Allergy to other foods

== ENCOUNTER 2021-07-23 15:17 | Emergency (ER) | payer MEDICARE, MEDICAID ==
[~2021-07-23] VITALS: Ht 167.6 cm; Wt 48.2 kg
[~2021-07-23 15:17] MED LIST changes: +IPRA0.00; -LEVO500T3 PO; +LEVO500T4 PO; -MONT10TA10; +MONT10TA97; +NAPR-855 PO
[2021-07-23 15:18] VITALS: BP 123/82
[2021-07-23] MEDS ORDERED: STIO1AER (15:22)
[2021-07-23] MEDS ORDERED: NEOSPORIN OINT 0.9 GM PKT TOP ONE (16:30)
[2021-07-23] MEDS ORDERED: BOOSTRIX/ADACEL VACCINE (DIPHTH/PERTUSS/ACELL/TETANUS) 0.5ML SYR IM ONE (16:35)
== END 2021-07-23 17:07 | disposition home or self-care (01) ==
LOC: M ED 15:17
DX: T25.222A Burn of second degree of left foot, initial encounter (principal); Y92.009 Unspecified place in unspecified non-institutional (private) residence as the place of occurrence of the external cause; Y27.2XXA Contact with hot fluids, undetermined intent, initial encounter; E78.5 Hyperlipidemia, unspecified; K21.9 Gastro-esophageal reflux disease without esophagitis; J44.9 Chronic obstructive pulmonary disease, unspecified; F17.200 Nicotine dependence, unspecified, uncomplicated; F12.10 Cannabis abuse, uncomplicated; Z88.0 Allergy status to penicillin; Z88.2 Allergy status to sulfonamides; Z79.51 Long term (current) use of inhaled steroids; Z79.899 Other long term (current) drug therapy; Y99.9 Unspecified external cause status; T31.0 Burns involving less than 10% of body surface; Y93.9 Activity, unspecified

== ENCOUNTER 2022-01-12 08:13 | Emergency (ER) | payer MEDICARE, MEDICAID ==
[~2022-01-12] VITALS: Ht 167.6 cm; Wt 52.8 kg
[~2022-01-12 08:13] MED LIST changes: +LEVO1TAB39 PO; -LEVO500T4 PO; +STIO1AER
[2022-01-12] MEDS ORDERED: NS 1,000 ML IV ONE (09:05)
[2022-01-12] MEDS ORDERED: KETOROLAC 30 MG/ML 1ML VIAL IV ONE (09:05)
[2022-01-12] MEDS ORDERED: METOCLOPRAMIDE INJ 10MG/2ML VIAL (J2765 PER 1) IV ONE (09:05)
[2022-01-12] MEDS ORDERED: diphenhydrAMINE 25MG CAP PO ONE (09:05)
[2022-01-12] MEDS ORDERED: diphenhydrAMINE 50MG/ML VIAL (J1200) IV STA (09:24)
[2022-01-12 09:55] LABS: HEMOGLOBIN 12.7 g/dl (12.0-15.5); MEAN CORPUSCULAR HEMOGLOBIN 33.7 pg (27.0-33.0); MEAN CORPUSCULAR HGB CONC 34.3 g/dl (32.0-36.5); MEAN CORPUSCULAR VOLUME 98.1 fl (80.0-96.0); PLATELET COUNT, AUTOMATED 152 10^3/uL (150-450); RED BLOOD COUNT 3.77 10^6/uL (4.00-5.40); WHITE BLOOD COUNT 2.2 10^3/uL (4.0-10.0)
[2022-01-12 10:15] LABS: ERYTHROCYTE SEDIMENTATION RATE 7 mm/hr (0-30)
[2022-01-12] MEDS ORDERED: dexameTHASONE 20MG/5ML VIAL (J1100 PER 1MG) IV ONE (10:30)
[2022-01-12 10:52] LABS: ALBUMIN 3.8 GM/DL (3.2-5.2); ALT/SGPT 105 U/L (12-78); BILIRUBIN,TOTAL 0.3 MG/DL (0.2-1.0); BLOOD UREA NITROGEN 11 MG/DL (7-18); CALCIUM LEVEL 8.7 MG/DL (8.5-10.1); CARBON DIOXIDE LEVEL 24 MEQ/L (21-32); CHLORIDE LEVEL 106 MEQ/L (98-107); CREATININE FOR GFR 0.98 MG/DL (0.55-1.30); GLOMERULAR FILTRATION RATE > 60.0 (>51); GLUCOSE, FASTING 116 MG/DL (70-100); POTASSIUM SERUM 4.4 MEQ/L (3.5-5.1); SODIUM LEVEL 134 MEQ/L (136-145); TOTAL PROTEIN 6.7 GM/DL (6.4-8.2)
[2022-01-12] MEDS ORDERED: REGL10TA6 PO (11:04)
[2022-01-12 11:24] VITALS: BP 134/75
== END 2022-01-12 12:10 | disposition home or self-care (01) ==
LOC: M ED 08:13
DX: U07.1 COVID-19 (principal); F17.200 Nicotine dependence, unspecified, uncomplicated; Z88.0 Allergy status to penicillin; Z88.2 Allergy status to sulfonamides; Z88.5 Allergy status to narcotic agent; Z91.02 Food additives allergy status; Z79.51 Long term (current) use of inhaled steroids; Z79.899 Other long term (current) drug therapy
CPT/HCPCS: 36415; 70450; 80053; 85027; 85652; 86140; 87428; 96361; 96374; 96375; 99284; J1100; J1200; J1885; J2765

== ENCOUNTER 2022-01-20 04:50 | Emergency (ER) | payer MEDICARE, MEDICAID ==
[~2022-01-20] VITALS: Ht 160 cm; Wt 46.8 kg
[~2022-01-20 04:50] MED LIST changes: +REGL10TA6 PO
[2022-01-20 05:42] LABS: BASO % 0.1 % (0.0-1.0); EOS % 0.2 % (0.0-3.0); HEMATOCRIT 38.2 % (36.0-47.0); HEMOGLOBIN 13.5 g/dl (12.0-15.5); LYMPH # 0.7 10^3/uL (1.5-5.0); LYMPH % 8.1 % (24.0-44.0); MEAN CORPUSCULAR HEMOGLOBIN 33.8 pg (27.0-33.0); MEAN CORPUSCULAR HGB CONC 35.3 g/dl (32.0-36.5); MEAN CORPUSCULAR VOLUME 95.5 fl (80.0-96.0); MONO # 0.6 10^3/uL (0.0-0.8); MONO % 7.8 % (2.0-8.0); NEUTROPHILS # 6.9 10^3/uL (1.5-8.5); NEUTROPHILS % 83.2 % (36.0-66.0); PLATELET COUNT, AUTOMATED 154 10^3/uL (150-450); WHITE BLOOD COUNT 8.3 10^3/uL (4.0-10.0)
[2022-01-20 05:46] LABS: ABG BASE EXCESS -3.6 (-2.0-2.0); ABG HCO3 18.2 MEQ/L (22.0-26.0); ABG O2 SATURATION 93.6 % (95.0-99.0); ABG PARTIAL PRESSURE CO2 24.9 mmHg (35.0-45.0); ABG PARTIAL PRESSURE O2 64.9 mmHg (75.0-100.0); ABG STANDARD HCO3 21.4 MEQ/L (22.0-26.0); ABG pH (ARTERIAL) 7.482 UNITS (7.350-7.450)
[2022-01-20 06:19] LABS: CALCIUM LEVEL 9.2 MG/DL (8.5-10.1); CREATININE FOR GFR 1.19 MG/DL (0.55-1.30); POTASSIUM SERUM 4.4 MEQ/L (3.5-5.1)
[2022-01-20] MEDS ORDERED: ISOVUE-370 76% 100ML VIAL As Ordered ONE (06:25)
[2022-01-20 07:45] VITALS: BP 122/76
[2022-01-20 08:09] VITALS: O2SAT 96
[2022-01-20] MEDS ORDERED: ACETAMINOPHEN TAB 650MG DOSE (2X325MG) PO PRN (08:10)
[2022-01-20] MEDS ORDERED: ALBUTEROL SULFATE 2.5 MG/0.5 ML INH NEB SOLN INH PRN (08:10)
[2022-01-20] MEDS ORDERED: NS 1,000 ML IV SCH (08:10)
[2022-01-20] MEDS ORDERED: methylPREDNISolone 125MG 2ML VIAL IV PRN (08:10)
[2022-01-20] MEDS ORDERED: EPINEPHrine INJ 1 MG/ML 1ML AMP IM PRN (08:10)
[2022-01-20] MEDS ORDERED: ALBUTEROL 90 MCG/ACT 8GM HFA INHALER INH PRN (08:10)
[2022-01-20] MEDS ORDERED: diphenhydrAMINE 50MG/ML VIAL (J1200) IV PRN (08:10)
[2022-01-20] MEDS ORDERED: BEBTELOVIMAB 175MG 2ML VIAL (EUA) IV ONE ×2 (08:10→08:20)
[2022-01-20] MEDS ORDERED: PRED10TA2 PO (08:41)
[2022-01-20] MEDS ORDERED: predniSONE 20 MG TAB PO ONE (08:50)
== END 2022-01-20 10:30 | disposition home or self-care (01) ==
LOC: EDBD 04:50 → M ED 04:50
DX: U07.1 COVID-19 (principal); J44.9 Chronic obstructive pulmonary disease, unspecified; R00.0 Tachycardia, unspecified; I10 Essential (primary) hypertension; K21.9 Gastro-esophageal reflux disease without esophagitis; E78.5 Hyperlipidemia, unspecified; F17.200 Nicotine dependence, unspecified, uncomplicated; F10.10 Alcohol abuse, uncomplicated; Z88.2 Allergy status to sulfonamides; Z88.5 Allergy status to narcotic agent; Z91.02 Food additives allergy status; Z79.51 Long term (current) use of inhaled steroids; Z79.899 Other long term (current) drug therapy
CPT/HCPCS: 36600; 71045; 71275; 80048; 82803; 85025; 93005; 93041; 96374; 99285; J7512; Q9967

== ENCOUNTER 2022-04-05 15:41 | Inpatient (IN) | payer MEDICARE, MEDICAID ==
[~2022-04-05] VITALS: Ht 167.6 cm; Wt 52.5 kg
[~2022-04-05 15:41] MED LIST changes: -DOXY-350 PO; +DOXY-444 PO
[2022-04-05] MEDS ORDERED: BUDE10.7 IH (15:53)
[2022-04-05] MEDS ORDERED: ALBUTEROL SULFATE 2.5 MG/0.5 ML INH NEB SOLN NEB ONE (16:10)
[2022-04-05] MEDS ORDERED: IPRATROPIUM 0.5MG/ALBUTEROL 2.5MG INH SOL UD 3ML (DUONEB) NEB ONE (16:10)
[2022-04-05 16:58] LABS: BASO # 0.1 10^3/uL (0.0-0.2); BASO % 0.7 % (0.0-1.0); EOS % 0.3 % (0.0-3.0); HEMATOCRIT 37.5 % (36.0-47.0); HEMOGLOBIN 13.2 g/dl (12.0-15.5); LYMPH # 0.5 10^3/uL (1.5-5.0); LYMPH % 6.3 % (24.0-44.0); MEAN CORPUSCULAR HEMOGLOBIN 33.8 pg (27.0-33.0); MEAN CORPUSCULAR HGB CONC 35.2 g/dl (32.0-36.5); MEAN CORPUSCULAR VOLUME 95.9 fl (80.0-96.0); MONO # 0.3 10^3/uL (0.0-0.8); MONO % 4.3 % (2.0-8.0); NEUTROPHILS # 6.3 10^3/uL (1.5-8.5); NEUTROPHILS % 87.7 % (36.0-66.0); PLATELET COUNT, AUTOMATED 281 10^3/uL (150-450); RED BLOOD COUNT 3.91 10^6/uL (4.00-5.40); WHITE BLOOD COUNT 7.2 10^3/uL (4.0-10.0)
[2022-04-05 17:20] LABS: BILIRUBIN,DIRECT 0.2 MG/DL (<0.4)
[2022-04-05 17:21] LABS: CPK CREATINE PHOSPHOKINASE 236 U/L (34-145)
[2022-04-05 17:31] LABS: ALBUMIN 3.8 G/DL (3.2-5.2); ALKALINE PHOSPHATASE 72 U/L (46-116); ALT/SGPT 21 U/L (7.0-40); AST/SGOT 19 U/L (<34); BILIRUBIN,TOTAL 0.6 MG/DL (0.3-1.2); BLOOD UREA NITROGEN 13 MG/DL (9-23); CALCIUM LEVEL 9.9 MG/DL (8.5-10.1); CARBON DIOXIDE LEVEL 22 MMOL/L (20-31); CHLORIDE LEVEL 99 MMOL/L (98-107); CK-MB VALUE MASS 1.2 NG/ML (<3.6); GLOMERULAR FILTRATION RATE > 60.0 (>51); GLUCOSE, FASTING 121 MG/DL (60-100); POTASSIUM SERUM 3.3 MMOL/L (3.5-5.1); SODIUM LEVEL 134 MMOL/L (136-145); THYROID STIMULATING HORMONE 1.058 uIU/ML (0.55-4.78); THYROXINE (T4) 8.3 UG/DL (4.5-10.9); TOTAL PROTEIN 7.3 G/DL (5.7-8.2)
[2022-04-05] MEDS ORDERED: AZITHROMYCIN 250MG TABLET PO SCH (18:00)
[2022-04-05] MEDS ORDERED: ACETAMINOPHEN TAB 650MG DOSE (2X325MG) PO PRN (18:30)
[2022-04-05] MEDS ORDERED: POTASSIUM CHLORIDE 10MEQ SR TABLET PO ONE (18:35)
[2022-04-05] MEDS ORDERED: HOME MED LIST COMPLETE! XX SCH (18:55)
[2022-04-05] MEDS ORDERED: NS 1,000 ML IV SCH (19:05)
[2022-04-05] MEDS ORDERED: guaiFENesin SYRUP 200MG 10ML UDC PO PRN (19:05)
[2022-04-05] MEDS ORDERED: LORazepam 2 MG TAB PO PRN (19:20)
[2022-04-05 19:55] LABS: HEMOGLOBIN A1c 4.4 % (4.0-6.0)
[2022-04-05] MEDS: SYMBICORT 160/4.5MCG INHALER 6GM INH SCH ×2 (20:00→20:39)
[2022-04-05] MEDS ORDERED: IPRATROPIUM 0.5MG/ALBUTEROL 2.5MG INH SOL UD 3ML (DUONEB) NEB SCH (20:00)
[2022-04-05] MEDS: THIAMINE 100 MG TAB PO SCH ×2 (20:00→20:20)
[2022-04-05 20:15] VITALS: BP 124/75
[2022-04-05] MEDS: MULTIVITAMINS/MINERALS THERAP 1 TAB PO SCH ×2 (20:19→20:26)
[2022-04-05] MEDS: FOLIC ACID 1MG TAB PO SCH ×2 (20:19→20:26)
[2022-04-05] MEDS ORDERED: FLUTICASONE PROP 0.05% NASAL SPRAY 16 GM (FLONASE) NARES SCH (21:00)
[2022-04-05] MEDS ORDERED: AZIT-12 PO ×2 (22:34→22:36)
[2022-04-06] MEDS ORDERED: ENOXAPARIN 40MG/0.4ML SYRINGE (J1650 PER 10MG) SC SCH (09:00)
== END 2022-04-05 21:45 | disposition left against medical advice (07) | DRG 192 ==
LOC: M ED 15:41 → M ED INP 18:29
PROVIDERS: ADMIT Family Medicine; ATTEND Family Medicine
DX: J44.1 Chronic obstructive pulmonary disease with (acute) exacerbation (principal); E87.6 Hypokalemia; Z88.2 Allergy status to sulfonamides; Z88.5 Allergy status to narcotic agent; Z88.0 Allergy status to penicillin; Z91.018 Allergy to other foods; Z79.899 Other long term (current) drug therapy; Z92.3 Personal history of irradiation; Z85.038 Personal history of other malignant neoplasm of large intestine

== ENCOUNTER → 2022-04-25 | Outpatient (CLI) | payer MEDICARE, MEDICAID ==
[~2022-04-25] MED LIST changes: +AZIT-12 PO; +BUDE10.7 IH
== END ==
LOC: M RAD 09:31
PROVIDERS: ATTEND Internal Medicine Pulmonary Disease
DX: J44.1 Chronic obstructive pulmonary disease with (acute) exacerbation (principal)

== ENCOUNTER → 2022-09-19 | Outpatient (CLI) | payer MEDICARE, MEDICAID | LOC: M PLAIMG 12:57 | PROVIDERS: ATTEND Internal Medicine Pulmonary Disease | DX: R91.8 Other nonspecific abnormal finding of lung field (principal) ==

== ENCOUNTER 2022-10-17 07:48 | Day surgery (SDC) | payer MEDICARE, MEDICAID ==
[~2022-10-17] VITALS: Ht 167.6 cm; Wt 51.7 kg
[~2022-10-17 07:48] MED LIST changes: +NS 1,000 ML IV ONE
[2022-10-17 11:27] VITALS: BP 162/80; TEMP 97.4; O2SAT 100
== END 2022-10-17 11:46 | disposition home or self-care (01) ==
LOC: M OPP 07:48
PROVIDERS: ATTEND Internal Medicine Gastroenterology
DX: Z86.010 Personal history of colon polyps (principal); Z85.038 Personal history of other malignant neoplasm of large intestine; D12.2 Benign neoplasm of ascending colon; Z98.0 Intestinal bypass and anastomosis status; Z80.3 Family history of malignant neoplasm of breast; Z80.8 Family history of malignant neoplasm of other organs or systems; Z88.0 Allergy status to penicillin; Z88.2 Allergy status to sulfonamides; Z88.5 Allergy status to narcotic agent; Z91.018 Allergy to other foods; Z79.899 Other long term (current) drug therapy

== ENCOUNTER → 2023-01-10 | Outpatient (CLI) | payer MEDICARE, MEDICAID ==
[~2023-01-10] MED LIST changes: +BARIUM SULFATE 700 MG TABLET (E-Z-DISK) As Ordered ONE; +E-Z-GAS II EFFERVESCENT PACKET (SODIUM BICARB./CITRIC ACID/SIMETHICONE) As Ordered ONE; +E-Z-HD 98% w/w 340GM SUSP BTL As Ordered ONE; +E-Z-PAQUE 96% w/w SUSP 176GM BTL As Ordered ONE; +ISOVUE-370 76% 100ML VIAL As Ordered ONE; -NS 1,000 ML IV ONE
== END ==
LOC: M RAD 08:08
PROVIDERS: ATTEND Otolaryngology
DX: R49.0 Dysphonia (principal); R13.10 Dysphagia, unspecified
CPT/HCPCS: 70491; 74220; Q9967

== ENCOUNTER 2023-01-11 09:56 | Day surgery (SDC) | payer MEDICARE, MEDICAID ==
[~2023-01-11] VITALS: Ht 167.6 cm; Wt 51.9 kg
[~2023-01-11 09:56] MED LIST changes: -BARIUM SULFATE 700 MG TABLET (E-Z-DISK) As Ordered ONE; -E-Z-GAS II EFFERVESCENT PACKET (SODIUM BICARB./CITRIC ACID/SIMETHICONE) As Ordered ONE; -E-Z-HD 98% w/w 340GM SUSP BTL As Ordered ONE; -E-Z-PAQUE 96% w/w SUSP 176GM BTL As Ordered ONE; -ISOVUE-370 76% 100ML VIAL As Ordered ONE
[2023-01-11] MEDS ORDERED: LR 1,000 ML IV SCH ×2 (10:00→13:05)
[2023-01-11] MEDS ORDERED: fentaNYL 250 MCG/5 ML INJECTION As Ordered ONE (10:21)
[2023-01-11] MEDS ORDERED: ROCURONIUM BROMIDE 50MG/5ML VIAL As Ordered ONE (10:21)
[2023-01-11] MEDS ORDERED: propofoL 200 MG/20 ML VIAL As Ordered ONE (10:21)
[2023-01-11] MEDS ORDERED: LIDOCAINE 2% 100MG/5ML SDV (FOR ANES.) As Ordered ONE (10:21)
[2023-01-11] MEDS ORDERED: MIDAZOLAM INJ 2MG/2ML VIAL As Ordered ONE (10:22)
[2023-01-11] MEDS ORDERED: OXYMETAZOLINE 0.05% NASAL SPRAY (AFRIN) As Ordered ONE (11:47)
[2023-01-11] MEDS ORDERED: LIDOCAINE W/EPINEPHRINE 1% 20ML VIAL As Ordered ONE (12:23)
[2023-01-11] MEDS ORDERED: fentaNYL 100 MCG/2 ML INJECTION IV PRN (13:05)
[2023-01-11] MEDS ORDERED: HYDROMORPHONE HCL 0.5 MG/ 0.5 ML SYRINGE IV PRN (13:05)
[2023-01-11] MEDS ORDERED: ONDANSETRON 4MG 2ML VIAL IV PRN (13:05)
[2023-01-11] MEDS ORDERED: oxyCODONE 5MG TAB PO PRN (13:05)
[2023-01-11] MEDS ORDERED: ONDANSETRON 4MG 2ML VIAL As Ordered ONE (13:23)
[2023-01-11] MEDS ORDERED: SUGAMMADEX SODIUM 500 MG/5 ML VIAL (BRIDION) As Ordered ONE (13:23)
[2023-01-11 14:15] VITALS: BP 132/72; TEMP 97.2; O2SAT 95
== END 2023-01-11 14:19 | disposition home or self-care (01) ==
LOC: M SDC 09:56
PROVIDERS: ATTEND Otolaryngology
DX: J38.4 Edema of larynx (principal); J38.1 Polyp of vocal cord and larynx; K21.9 Gastro-esophageal reflux disease without esophagitis; F41.9 Anxiety disorder, unspecified; F32.A Depression, unspecified; J44.9 Chronic obstructive pulmonary disease, unspecified; G43.909 Migraine, unspecified, not intractable, without status migrainosus; Z79.51 Long term (current) use of inhaled steroids; Z79.899 Other long term (current) drug therapy; G47.33 Obstructive sleep apnea (adult) (pediatric); Z92.3 Personal history of irradiation; Z91.018 Allergy to other foods; Z88.0 Allergy status to penicillin; Z88.2 Allergy status to sulfonamides; Z88.5 Allergy status to narcotic agent; Z85.21 Personal history of malignant neoplasm of larynx
CPT/HCPCS: 31536; 88305; 93005; J1100; J2250; J2405; J3010

== ENCOUNTER → 2023-05-31 | Outpatient (CLI) | payer MEDICARE, MEDICAID ==
[~2023-05-31] MED LIST changes: +ISOVUE-370 76% 100ML VIAL ONE
== END ==
LOC: M PLAIMG 13:45
PROVIDERS: ATTEND Otolaryngology
DX: R07.0 Pain in throat (principal); Z85.21 Personal history of malignant neoplasm of larynx
CPT/HCPCS: 70491; Q9967

== ENCOUNTER 2023-06-19 12:31 | Emergency (ER) | payer MEDICARE, MEDICAID ==
[~2023-06-19] VITALS: Ht 167.6 cm; Wt 47.7 kg
[~2023-06-19 12:31] MED LIST changes: -ISOVUE-370 76% 100ML VIAL ONE
[2023-06-19] MEDS: BOOSTRIX VACCINE (TETANUS/DIPHTH/ACEL. PERTUSSIS) 0.5ML SYR IM ONE (17:30)
[2023-06-19 18:03] VITALS: BP 118/68; TEMP 97.8; O2SAT 96
== END 2023-06-19 19:00 | disposition left against medical advice (07) ==
LOC: M ED 12:31
DX: S42.211A Unspecified displaced fracture of surgical neck of right humerus, initial encounter for closed fracture (principal); W19.XXXA Unspecified fall, initial encounter; F17.200 Nicotine dependence, unspecified, uncomplicated; F10.10 Alcohol abuse, uncomplicated; Z88.0 Allergy status to penicillin; Z88.2 Allergy status to sulfonamides; Z88.5 Allergy status to narcotic agent; Z91.018 Allergy to other foods; Z79.52 Long term (current) use of systemic steroids; Z79.899 Other long term (current) drug therapy; Z53.9 Procedure and treatment not carried out, unspecified reason; Y92.009 Unspecified place in unspecified non-institutional (private) residence as the place of occurrence of the external cause; Y93.89 Activity, other specified; Y99.9 Unspecified external cause status

== ENCOUNTER → 2023-08-09 | Outpatient (CLI) | payer MEDICARE, MEDICAID | LOC: M SOG 12:54 | PROVIDERS: ATTEND Physician Assistant | DX: S42.214A Unspecified nondisplaced fracture of surgical neck of right humerus, initial encounter for closed fracture (principal); W18.30XA Fall on same level, unspecified, initial encounter; Y92.009 Unspecified place in unspecified non-institutional (private) residence as the place of occurrence of the external cause ==

== ENCOUNTER → 2023-09-20 | Outpatient (CLI) | payer MEDICARE, MEDICAID ==
[~2023-09-20] MED LIST changes: +DOXY-440 PO; -DOXY-444 PO
[2023-09-20 18:28] LABS: BASO # 0.1 10^3/uL (0.0-0.2); BASO % 0.8 % (0.0-1.0); EOS # 0.1 10^3/uL (0.0-0.5); EOS % 1.1 % (0.0-3.0); HEMATOCRIT 41.1 % (36.0-47.0); HEMOGLOBIN 14.2 g/dl (12.0-15.5); LYMPH # 1.1 10^3/uL (1.5-5.0); LYMPH % 15.5 % (24.0-44.0); MEAN CORPUSCULAR HGB CONC 34.5 g/dl (32.0-36.5); MEAN CORPUSCULAR VOLUME 98.3 fl (80.0-96.0); MONO # 0.6 10^3/uL (0.0-0.8); MONO % 7.8 % (2.0-8.0); NEUTROPHILS # 5.3 10^3/uL (1.5-8.5); NEUTROPHILS % 74.4 % (36.0-66.0); PLATELET COUNT, AUTOMATED 243 10^3/uL (150-450); RED BLOOD COUNT 4.18 10^6/uL (4.00-5.40); WHITE BLOOD COUNT 7.2 10^3/uL (4.0-10.0)
[2023-09-20 18:30] LABS: IRON (FE) 97 UG/DL (50-170); TOTAL IRON BINDING CAPACITY 255 UG/DL (250-425)
[2023-09-20 18:31] LABS: ALBUMIN 3.9 G/DL (3.2-5.2); ALKALINE PHOSPHATASE 68 U/L (46-116); ALT/SGPT 21 U/L (7.0-40); AST/SGOT 17 U/L (<34); BILIRUBIN,TOTAL 0.4 MG/DL (0.3-1.2); BLOOD UREA NITROGEN 17 MG/DL (9-23); CARBON DIOXIDE LEVEL 27 MMOL/L (20-31); CHLORIDE LEVEL 106 MMOL/L (98-107); CHOLESTEROL LEVEL 202 MG/DL (<200); CHOLESTEROL RISK RATIO 2.66 (<5); CREATININE FOR GFR 0.99 MG/DL (0.55-1.30); GLOMERULAR FILTRATION RATE > 60.0 (>51); GLUCOSE, FASTING 91 MG/DL (60-100); HDL CHOLESTEROL 75.7 MG/DL (>40); LDL CHOLESTEROL 113.9 MG/DL (<100); NON-HDL-C 126.3 MG/DL; POTASSIUM SERUM 4.7 MMOL/L (3.5-5.1); SODIUM LEVEL 137 MMOL/L (136-145); THYROID STIMULATING HORMONE 1.156 uIU/ML (0.55-4.78); TOTAL PROTEIN 6.9 G/DL (5.7-8.2); TRIGLYCERIDES LEVEL 62 MG/DL (<150)
[2023-09-20 18:32] LABS: TOTAL 25(OH) VITAMIN D 5.6 NG/ML (20.0-100.0)
[2023-09-20 18:33] LABS: FREE T4 0.94 NG/DL (0.89-1.76)
[2023-09-20 19:03] LABS: HEMOGLOBIN A1c 4.8 % (4.0-6.0)
== END ==
LOC: M PLALAB 14:30
PROVIDERS: ATTEND Nurse Practitioner Adult Health
DX: E78.5 Hyperlipidemia, unspecified (principal); J44.9 Chronic obstructive pulmonary disease, unspecified; G47.33 Obstructive sleep apnea (adult) (pediatric); I10 Essential (primary) hypertension; E55.9 Vitamin D deficiency, unspecified; Z79.899 Other long term (current) drug therapy

== ENCOUNTER → 2023-09-20 | Outpatient (CLI) | payer MEDICARE, MEDICAID | LOC: M SOG 07:59 | PROVIDERS: ATTEND Physician Assistant | DX: S42.214D Unspecified nondisplaced fracture of surgical neck of right humerus, subsequent encounter for fracture with routine healing (principal); M19.011 Primary osteoarthritis, right shoulder; E78.5 Hyperlipidemia, unspecified; J44.9 Chronic obstructive pulmonary disease, unspecified; G47.33 Obstructive sleep apnea (adult) (pediatric); I10 Essential (primary) hypertension; E55.9 Vitamin D deficiency, unspecified; Z79.899 Other long term (current) drug therapy; Z86.39 Personal history of other endocrine, nutritional and metabolic disease ==

== ENCOUNTER → 2023-12-20 | Outpatient (CLI) | payer MEDICARE, MEDICAID, OTHER | LOC: M SOG 07:56 | PROVIDERS: ATTEND Physician Assistant | DX: S42.214A Unspecified nondisplaced fracture of surgical neck of right humerus, initial encounter for closed fracture (principal); Z53.9 Procedure and treatment not carried out, unspecified reason ==

== ENCOUNTER → 2024-01-31 | Outpatient (CLI) | payer MEDICARE, MEDICAID, OTHER | LOC: M SOG 07:22 | PROVIDERS: ATTEND Physician Assistant | DX: S42.214A Unspecified nondisplaced fracture of surgical neck of right humerus, initial encounter for closed fracture (principal); X58.XXXA Exposure to other specified factors, initial encounter; Y92.9 Unspecified place or not applicable; Z53.9 Procedure and treatment not carried out, unspecified reason ==

== ENCOUNTER → 2024-03-13 | Outpatient (CLI) | payer MEDICARE, MEDICAID, OTHER ==
[~2024-03-13] MED LIST changes: +GABA-1172; +GABA-1172 PO; -GABA-282; -GABA-282 PO
== END ==
LOC: M SOG 08:12
PROVIDERS: ATTEND Physician Assistant
DX: S42.214A Unspecified nondisplaced fracture of surgical neck of right humerus, initial encounter for closed fracture (principal); Y93.9 Activity, unspecified; Y92.9 Unspecified place or not applicable

== ENCOUNTER → 2024-06-11 | Outpatient (CLI) | payer MEDICARE, MEDICAID ==
[2024-06-11 13:49] LABS: BASO # 0.1 10^3/uL (0.0-0.2); EOS # 0.1 10^3/uL (0.0-0.5); EOS % 2.5 % (0.0-3.0); HEMATOCRIT 39.1 % (36.0-47.0); HEMOGLOBIN 13.5 g/dl (12.0-15.5); LYMPH # 1.4 10^3/uL (1.5-5.0); LYMPH % 29.9 % (24.0-44.0); MEAN CORPUSCULAR HEMOGLOBIN 34.3 pg (27.0-33.0); MEAN CORPUSCULAR HGB CONC 34.5 g/dl (32.0-36.5); MEAN CORPUSCULAR VOLUME 99.2 fl (80.0-96.0); MONO # 0.5 10^3/uL (0.0-0.8); MONO % 10.4 % (2.0-8.0); NEUTROPHILS # 2.7 10^3/uL (1.5-8.5); PLATELET COUNT, AUTOMATED 222 10^3/uL (150-450); RED BLOOD COUNT 3.94 10^6/uL (4.00-5.40); WHITE BLOOD COUNT 4.8 10^3/uL (4.0-10.0)
[2024-06-11 14:08] LABS: HEMOGLOBIN A1c 4.9 % (4.0-6.0)
[2024-06-11 14:24] LABS: THYROID STIMULATING HORMONE 2.789 uIU/ML (0.55-4.78)
[2024-06-11 14:25] LABS: FREE T4 0.94 NG/DL (0.89-1.76); IRON (FE) 119 UG/DL (50-170); PERCENT SATURATION 43.4 % (13.2-45.0); TOTAL IRON BINDING CAPACITY 274 UG/DL (250-425)
[2024-06-11 14:26] LABS: ALBUMIN 3.6 G/DL (3.2-5.2); ALKALINE PHOSPHATASE 55 U/L (35-104); ALT/SGPT 23 U/L (7.0-40); AST/SGOT 22 U/L (<34); BILIRUBIN,TOTAL 0.4 MG/DL (0.3-1.2); BLOOD UREA NITROGEN 14 MG/DL (9-23); CALCIUM LEVEL 9.2 MG/DL (8.5-10.1); CARBON DIOXIDE LEVEL 28 MMOL/L (20-31); CHLORIDE LEVEL 110 MMOL/L (98-107); CHOLESTEROL LEVEL 211 MG/DL (<200); CHOLESTEROL RISK RATIO 2.41 (<5); CREATININE FOR GFR 0.86 MG/DL (0.55-1.30); GLOMERULAR FILTRATION RATE > 60.0 (>51); GLUCOSE, FASTING 53 MG/DL (60-100); HDL CHOLESTEROL 87.3 MG/DL (>40); LDL CHOLESTEROL 114.5 MG/DL (<100); NON-HDL-C 123.7 MG/DL; POTASSIUM SERUM 4.3 MMOL/L (3.5-5.1); SODIUM LEVEL 141 MMOL/L (136-145); TOTAL PROTEIN 6.7 G/DL (5.7-8.2); TRIGLYCERIDES LEVEL 46 MG/DL (<150)
== END ==
LOC: M WUC 10:46
PROVIDERS: ATTEND Nurse Practitioner Adult Health
DX: E78.5 Hyperlipidemia, unspecified (principal); J44.9 Chronic obstructive pulmonary disease, unspecified; G47.33 Obstructive sleep apnea (adult) (pediatric); I10 Essential (primary) hypertension; E55.9 Vitamin D deficiency, unspecified; Z79.899 Other long term (current) drug therapy

== ENCOUNTER → 2024-07-02 | Outpatient (REF) | payer MEDICARE, MEDICAID ==
[2024-07-02 18:19] LABS: BASO % 0.7 % (0.0-1.0); EOS # 0.1 10^3/uL (0.0-0.5); EOS % 0.9 % (0.0-3.0); HEMATOCRIT 40.4 % (36.0-47.0); HEMOGLOBIN 13.5 g/dl (12.0-15.5); LYMPH # 0.9 10^3/uL (1.5-5.0); LYMPH % 17.3 % (24.0-44.0); MEAN CORPUSCULAR HEMOGLOBIN 32.8 pg (27.0-33.0); MEAN CORPUSCULAR HGB CONC 33.4 g/dl (32.0-36.5); MEAN CORPUSCULAR VOLUME 98.1 fl (80.0-96.0); MONO # 0.6 10^3/uL (0.0-0.8); MONO % 10.8 % (2.0-8.0); NEUTROPHILS # 3.8 10^3/uL (1.5-8.5); NEUTROPHILS % 69.9 % (36.0-66.0); PLATELET COUNT, AUTOMATED 199 10^3/uL (150-450); RED BLOOD COUNT 4.12 10^6/uL (4.00-5.40); WHITE BLOOD COUNT 5.4 10^3/uL (4.0-10.0)
[2024-07-02 18:47] LABS: FREE T4 0.96 NG/DL (0.89-1.76); THYROID STIMULATING HORMONE 1.841 uIU/ML (0.55-4.78)
[2024-07-02 18:48] LABS: ALBUMIN 3.9 G/DL (3.2-5.2); ALKALINE PHOSPHATASE 62 U/L (35-104); ALT/SGPT 19 U/L (7.0-40); AST/SGOT 13 U/L (<34); BILIRUBIN,TOTAL 0.5 MG/DL (0.3-1.2); BLOOD UREA NITROGEN 11 MG/DL (9-23); CALCIUM LEVEL 9.1 MG/DL (8.5-10.1); CARBON DIOXIDE LEVEL 25 MMOL/L (20-31); CHLORIDE LEVEL 107 MMOL/L (98-107); CHOLESTEROL LEVEL 189 MG/DL (<200); GLOMERULAR FILTRATION RATE > 60.0 (>51); GLUCOSE, FASTING 94 MG/DL (60-100); IRON (FE) 64 UG/DL (50-170); LDL CHOLESTEROL 86.4 MG/DL (<100); PERCENT SATURATION 25.1 % (13.2-45.0); POTASSIUM SERUM 4.5 MMOL/L (3.5-5.1); SODIUM LEVEL 138 MMOL/L (136-145); TOTAL IRON BINDING CAPACITY 255 UG/DL (250-425); TOTAL PROTEIN 6.9 G/DL (5.7-8.2); TRIGLYCERIDES LEVEL 63 MG/DL (<150)
[2024-07-02 18:50] LABS: TOTAL 25(OH) VITAMIN D 6.2 NG/ML (20.0-100.0)
== END ==
LOC: M LABDRWAD 17:11
DX: E78.5 Hyperlipidemia, unspecified (principal); J44.9 Chronic obstructive pulmonary disease, unspecified; I10 Essential (primary) hypertension; E55.9 Vitamin D deficiency, unspecified; Z79.899 Other long term (current) drug therapy; G47.33 Obstructive sleep apnea (adult) (pediatric); Z86.2 Personal history of diseases of the blood and blood-forming organs and certain disorders involving the immune mechanism

== ENCOUNTER → 2024-07-02 | Outpatient (REF) | payer MEDICARE, MEDICAID | LOC: M SFHCDERM 17:12 | PROVIDERS: ATTEND Physician Assistant | DX: L40.0 Psoriasis vulgaris (principal) ==

== ENCOUNTER → 2024-08-21 | Outpatient (CLI) | payer MEDICARE, MEDICAID | LOC: M RAD 14:53 | PROVIDERS: ATTEND Internal Medicine Pulmonary Disease | DX: Z12.2 Encounter for screening for malignant neoplasm of respiratory organs (principal); Z87.891 Personal history of nicotine dependence ==

== ENCOUNTER → 2024-09-15 | Outpatient (CLI) | payer MEDICARE, MEDICAID ==
[2024-09-15 16:41] LABS: FREE T4 0.98 NG/DL (0.89-1.76); THYROID STIMULATING HORMONE 2.311 uIU/ML (0.55-4.78)
[2024-09-15 16:43] LABS: FREE T3 2.6 PG/ML (2.3-4.2)
== END ==
LOC: M LAB 15:47
PROVIDERS: ATTEND Otolaryngology
DX: Z85.21 Personal history of malignant neoplasm of larynx (principal); R53.83 Other fatigue

== ENCOUNTER 2024-11-06 06:34 | Emergency (ER) | payer MEDICARE, MEDICAID ==
[~2024-11-06] VITALS: Ht 167.6 cm; Wt 50.4 kg
[~2024-11-06 06:34] MED LIST changes: -BUDE10.7 IH; +BUDE10.7 INH; +IBUP100S17 PO; -IPRA0.00; +IPRA0.00 NEB; +ONDA-282 PO; +SUCR1ORA; +TRAM50TA2 PO
[2024-11-06 08:28] LABS: VENOUS BASE EXCESS -3.0 (-2.0-2.0); VENOUS HCO3 21.5 MMOL/L (23.0-27.0); VENOUS O2 SATURATION 73.4 % (60.0-80.0); VENOUS PARTIAL PRESSURE CO2 37.0 mmHg (38.0-50.0); VENOUS PARTIAL PRESSURE O2 38.3 mmHg (30.0-50.0); VENOUS PH 7.383 UNITS (7.330-7.430); VENOUS STANDARD HCO3 21.4 MMOL/L; VENOUS TOTAL CO2 22.7 MMOL/L (24.0-28.0)
[2024-11-06 08:31] LABS: BASO # 0.1 10^3/uL (0.0-0.2); BASO % 0.6 % (0.0-1.0); EOS # 0.1 10^3/uL (0.0-0.5); EOS % 0.8 % (0.0-3.0); LYMPH # 0.5 10^3/uL (1.5-5.0); LYMPH % 5.5 % (24.0-44.0); MONO # 0.2 10^3/uL (0.0-0.8); MONO % 1.9 % (2.0-8.0); NEUTROPHILS # 7.5 10^3/uL (1.5-8.5); NEUTROPHILS % 90.7 % (36.0-66.0); PLATELET COUNT, AUTOMATED 272 10^3/uL (150-450)
[2024-11-06] MEDS ORDERED: IBUP200C28 PO (09:03)
[2024-11-06 09:04] LABS: ALT/SGPT 21.0 U/L (7.0-40); AST/SGOT 22.0 U/L (<34); CALCIUM LEVEL 9.3 MG/DL (8.5-10.1); CARBON DIOXIDE LEVEL 22.0 MMOL/L (20-31); CHLORIDE LEVEL 97.0 MMOL/L (98-107); CREATININE FOR GFR 0.86 MG/DL (0.55-1.30); GLOMERULAR FILTRATION RATE 77.8 (>51); POTASSIUM SERUM 4.0 MMOL/L (3.5-5.1); SODIUM LEVEL 132.0 MMOL/L (136-145)
[2024-11-06] MEDS ORDERED: HOME MED LIST COMPLETE! XX SCH (09:05)
[2024-11-06] MEDS ORDERED: ISOVUE-370 76% 100 ML VIAL As Ordered ONE (09:22)
[2024-11-06] MEDS: RACEPINEPHrine 2.25% UD INHAL INH ONE (09:26)
[2024-11-06] MEDS: MORPHINE 2 MG/ML 1 ML VIAL IV PRN (09:53)
[2024-11-06 11:45] VITALS: BP 139/89; TEMP 98.2; O2SAT 93
[2024-11-06] MEDS ORDERED: NIRM1TAB14 PO (12:06)
[2024-11-06] MEDS ORDERED: PRED20TA PO (12:06)
== END 2024-11-06 12:42 | disposition home or self-care (01) ==
LOC: M ED 06:34
DX: U07.1 COVID-19 (principal); J44.9 Chronic obstructive pulmonary disease, unspecified; R13.10 Dysphagia, unspecified; I49.3 Ventricular premature depolarization; I10 Essential (primary) hypertension; G47.30 Sleep apnea, unspecified; K21.9 Gastro-esophageal reflux disease without esophagitis; E78.5 Hyperlipidemia, unspecified; F17.200 Nicotine dependence, unspecified, uncomplicated; Z88.0 Allergy status to penicillin; Z88.2 Allergy status to sulfonamides; Z88.5 Allergy status to narcotic agent; Z91.018 Allergy to other foods; Z79.52 Long term (current) use of systemic steroids; Z79.1 Long term (current) use of non-steroidal anti-inflammatories (NSAID); Z79.899 Other long term (current) drug therapy
CPT/HCPCS: 70360; 70491; 71045; 71275; 80048; 80076; 82803; 85025; 87486; 87581; 87633; 87798; 93005; 93041; 94640; 94760; 96374; 96375; 99285; J1100; Q9967

== ENCOUNTER → 2024-12-05 | Day surgery (SDC) | payer MEDICARE, MEDICAID ==
[~2024-12-05] VITALS: Ht 167.6 cm; Wt 47.2 kg
[~2024-12-05] MED LIST changes: +APAP500T10 PO; +GLYCOPYRROLATE INJ 0.2 MG/ML 2 ML VIAL As Ordered ONE; +IBUP200C28 PO; +LIDOCAINE 2% 100 MG/5 ML SDV (FOR ANES.) As Ordered ONE; +NIRM1TAB14 PO
[2024-12-05 12:43] VITALS: TEMP 98
[2024-12-05 13:10] VITALS: BP 110/66; O2SAT 97
== END | disposition home or self-care (01) ==
LOC: M OPP 11:01
PROVIDERS: ATTEND Internal Medicine Gastroenterology
DX: J38.7 Other diseases of larynx (principal); R13.11 Dysphagia, oral phase; G47.30 Sleep apnea, unspecified; Z88.0 Allergy status to penicillin; Z88.2 Allergy status to sulfonamides; Z88.5 Allergy status to narcotic agent; Z91.018 Allergy to other foods; Z79.899 Other long term (current) drug therapy; J44.9 Chronic obstructive pulmonary disease, unspecified; F17.210 Nicotine dependence, cigarettes, uncomplicated
CPT/HCPCS: 43235; J1596; J3010

== ENCOUNTER → 2024-12-18 | Outpatient (CLI) | payer MEDICARE, MEDICAID ==
[~2024-12-18] MED LIST changes: +BARIUM SULFATE 700 MG TABLET As Ordered ONE; +E-Z-PAQUE 96% w/w SUSP 176 GM BTL As Ordered ONE; -GLYCOPYRROLATE INJ 0.2 MG/ML 2 ML VIAL As Ordered ONE; -LIDOCAINE 2% 100 MG/5 ML SDV (FOR ANES.) As Ordered ONE; -NIRM1TAB14 PO; +NIRM1TAB16 PO; +VARIBAR NECTAR 40% w/v 240ML SUSP BTL As Ordered ONE; +VARIBAR PUDDING 40% w/v 230ML TUBE As Ordered ONE
== END ==
LOC: M RAD 13:00
PROVIDERS: ATTEND Otolaryngology
DX: R13.10 Dysphagia, unspecified (principal); Z92.3 Personal history of irradiation; Z85.21 Personal history of malignant neoplasm of larynx; Z53.9 Procedure and treatment not carried out, unspecified reason

== ENCOUNTER → 2024-12-26 | Outpatient (CLI) | payer MEDICARE, MEDICAID ==
[~2024-12-26] MED LIST changes: -BARIUM SULFATE 700 MG TABLET As Ordered ONE; -E-Z-PAQUE 96% w/w SUSP 176 GM BTL As Ordered ONE; -VARIBAR NECTAR 40% w/v 240ML SUSP BTL As Ordered ONE; -VARIBAR PUDDING 40% w/v 230ML TUBE As Ordered ONE
[2024-12-26 15:09] LABS: BASO # 0.1 10^3/uL (0.0-0.2); BASO % 1.1 % (0.0-1.0); EOS # 0.0 10^3/uL (0.0-0.5); EOS % 0.8 % (0.0-3.0); LYMPH # 1.2 10^3/uL (1.5-5.0); LYMPH % 26.2 % (24.0-44.0); MONO # 0.5 10^3/uL (0.0-0.8); MONO % 9.9 % (2.0-8.0); NEUTROPHILS # 2.9 10^3/uL (1.5-8.5); NEUTROPHILS % 61.8 % (36.0-66.0); PLATELET COUNT, AUTOMATED 283 10^3/uL (150-450)
[2024-12-26 15:32] LABS: IRON (FE) 88.0 UG/DL (50-170); PERCENT SATURATION 37.4 % (13.2-45.0)
[2024-12-26 15:34] LABS: ALT/SGPT 27.0 U/L (7.0-40); AST/SGOT 33.0 U/L (<34); CALCIUM LEVEL 9.9 MG/DL (8.5-10.1); CARBON DIOXIDE LEVEL 24.0 MMOL/L (20-31); CHLORIDE LEVEL 106.0 MMOL/L (98-107); CHOLESTEROL LEVEL 206.0 MG/DL (<200); CHOLESTEROL RISK RATIO 1.95 (<5); CREATININE FOR GFR 1.11 MG/DL (0.55-1.30); GLOMERULAR FILTRATION RATE 57.3 (>51); LDL CHOLESTEROL 88.6 MG/DL (<100); NON-HDL-C 100.6 MG/DL; POTASSIUM SERUM 4.5 MMOL/L (3.5-5.1); SODIUM LEVEL 139.0 MMOL/L (136-145); TRIGLYCERIDES LEVEL 60.0 MG/DL (<150)
[2024-12-26 15:36] LABS: TOTAL 25(OH) VITAMIN D 19.7 NG/ML (20.0-100.0)
[2024-12-26 15:37] LABS: FREE T4 1.03 NG/DL (0.89-1.76)
== END ==
LOC: M LAB 12:49
DX: E78.5 Hyperlipidemia, unspecified (principal); J44.9 Chronic obstructive pulmonary disease, unspecified; G47.33 Obstructive sleep apnea (adult) (pediatric); I10 Essential (primary) hypertension; Z79.899 Other long term (current) drug therapy; D50.9 Iron deficiency anemia, unspecified

== ENCOUNTER → 2025-03-23 | Outpatient (CLI) | payer MEDICARE, MEDICAID | LOC: M PLAIMG 12:46 | PROVIDERS: ATTEND Internal Medicine Pulmonary Disease | DX: R91.8 Other nonspecific abnormal finding of lung field (principal); J43.9 Emphysema, unspecified; J84.10 Pulmonary fibrosis, unspecified ==

== ENCOUNTER → 2025-04-15 | Outpatient (REF) | payer MEDICARE, MEDICAID | LOC: M LAB REF 15:23 | PROVIDERS: ATTEND Internal Medicine Pulmonary Disease | DX: J43.1 Panlobular emphysema (principal) ==

== ENCOUNTER → 2025-04-16 | Outpatient (REF) | payer MEDICARE, MEDICAID | LOC: M LAB REF 15:22 | PROVIDERS: ATTEND Internal Medicine Pulmonary Disease | DX: J43.1 Panlobular emphysema (principal) ==

== ENCOUNTER → 2025-04-17 | Outpatient (REF) | payer MEDICARE, MEDICAID | LOC: M LAB REF 14:41 | PROVIDERS: ATTEND Internal Medicine Pulmonary Disease | DX: J43.1 Panlobular emphysema (principal) ==